=== PATIENT | male | born 1990 | race Caucasian/White ===

== ENCOUNTER 2024-11-08 08:56 | Outpatient (OUT) | payer SELFPAY ==
[2024-11-14 09:07] LABS: HSV-1 DNA Negative (Negative); HSV-2 DNA Negative (Negative)
== END 2024-11-08 08:57 | disposition home or self-care (01) ==
LOC: LAB 08:56
PROVIDERS: PCP Family Medicine; Visit Provider Family Medicine
DX: Z20.828 Contact with and (suspected) exposure to other viral communicable diseases (principal)

== ENCOUNTER 2024-11-16 14:30 | Outpatient (OUT) | payer SELFPAY ==
--- OUTSIDE RECORDS SUMMARY | 2024-11-16 14:51 | XMS_ITS | CCD ---
Author Organization [facility] Inform ion [facility] Care Team Providers Care Loss Claim Clerk Name Role Phone MIRNA RODARTE Unavailable Unavailable TARA HAMILTON Unavailable Unavailable Leticia Negrete Unavailable Tara Hamilton Unavailable Tara De La Rosa Unavailable Juan Manuel Ruffin Unavailable Tara Hamilton Referring UnavailBalaji Valentine Attending Unavailable ALFNOSO, DR PACHECO Primary Care Unavailable TARA DE LA ROSA JR Attending Unavailable TARA DE LA ROSA JR Consulting Unavailable TARA DE LA ROSA JR Admitting Unavailable ALFONSO, DR PACHECO Consulting Unavailable ALFONSO, DR PACHECO Primary Care Unavailable ALFONSO, DR PACHECO Admitting Unavailable ALFONSO, DR PACHECO Attending Unavailable ALFONSO, DR PACHECO Consulting Unavailable ALFONSO, DR PACHECO Primary Care Unavailable GIRRALPH, DR PACHECO Admitting Unavailable ALFONSO, DR PACHECO Attending Unavailable ALFONSO, DR PACHECO Primary Care Unavailable STALNEY, DR PEDRO Crabtree Consulting Unavailable GARRETT CAMPBELL Attending Unavailable GARRETT CAMPBELL Admitting Unavailable GARRETT CAMPBELL Consulting Unavailable Denny CORBIN Attending Unavailable Allergies Allergy Classification Reported Allergen(s) Allergy Type Date of Onset Reaction(s) Facility (9 sources) Penicillian V Potassium Propensity to adverse reactions Epigamies Pronutria Other (1 source) Penicillins Drug allergy (disorder) 4 [facility] Repository Medications Completed/Discontinued Medications Medication Drug Class(es) Dates Sig (Normalized) Sig (Original) dicyclomine hydrochloride 20 mg oral tablet (7 sources) Anticholinergic Start: 11-13-2021 take 1 tablet by mouth every twelve hours Dicyclomine HCl 20 MG 1 tablet Orally TWICE A DAY Oct, Not-Taking metroNIDAZOLE 500 mg oral tablet (3 sources) Nitroimidazole Antimicrobial Start: 08-24-2022 take 1 tablet by mouth every eight hours metroNIDAZOLE 500 MG 1 tablet Orally Three times a day for 10 day(s) replaces Vancomycin Jul, Not-Taking Naltrexone (20 sources) Opioid Antagonist Start: 01-18-2020 Vivitrol 20 Dec, 2019 380 mg Start: 12-18-2019 Vivitrol 20 Ja n2019 380 mg Start: 11-17-2019 Vivitrol 20 De c2018 380 mg Start: 10-16-2019 Vivitrol 18 No v2018 380 mg Start: 03-10-2018 Vivitrol 12 Ap r2017 380 mg Triamcinolone (12 sources) Corticosteroid Start: 05-25-2021 KENALOG - 10 m g Apr, 80 mg Start: 03-22-2021 KENALOG - 10 m g Feb, 40 mg Problems Active Problems Problem Classification Problem Date Documented Date Episodic/Chronic Abdominal pain (6 sources) Unspecified abdominal pain; Translations: [UNSPECIFIED ABDOMINAL PAIN] Onset: 07-29-20 Episodic Epilepsy; convulsions (9 sources) Seizure disorder; Translations: [Epilepsy, unspecified, not intractable, without status epilepticus] Chronic Gastroduodenal ulcer (except hemorrhage) (9 sources) Peptic ulcer; Translations: [Peptic ulcer, site unspecified, unspecified as acute or chronic, without hemorrhage or perforation] Chronic Headache; including migraine (9 sources) Migraine; Translations: [Migraine, unspecified, not intractable, without status migrainosus] Chronic Hepatitis (16 sources) Viral hepatitis C; Translations: [Unspecified viral hepatitis C without hepatic coma] Onset: 11-13-20 Resolved : 11-13-20 Episodic Intestinal infection (1 source) Enterocolitis due to Clostridium difficile, not specified as recurrent Episodic Other gastrointestinal disorders (7 sources) Irritable bowel syndrome with diarrhea; Translations: [Irritable bowel syndrome with diarrhea] Chronic Other gastrointestinal disorders (1 source) Irritable bowel syndrome with diarrhea Onset: 11-13-20 Resolved : 11-13-20 Chronic Other gastrointestinal disorders (5 sources) Diarrhea, unspecified; Translations: [DIARRHEA UNSPECIFIED] Onset: 08-20-20 Episodic Other infections; including parasitic (1 source) Personal history of other infectious and parasitic diseases Episodic Other screening for suspected conditions (not mental disorders or infectious disease) (9 sources) Electroencephalogram abnormal; Translations: [Abnormal electroencephalogram [EEG]] Episodic Substance-related disorders (10 sources) Opioid dependence; Translations: [Opioid dependence, uncomplicated] Onset: 07-31-20 Chronic Past or Other Problems Problem Classification Problem Date Documented Da te Episodic/Chronic Epilepsy; convulsions (1 source) Unspecified convulsions; Translations: [Unspecified convulsions] Onset: 01-29-2018 Episodic Immunizations and screening for infectious disease (1 source) Contact with and (suspected) exposure to other viral communicable diseases; Translations: [Contact with and (suspected) exposure to other viral communicable diseases Z20.828] Onset: 09-19-2021 Resolved: 09-19-2021 Episodic Other upper respiratory infections (1 source) Acute upper respiratory infection, unspecified; Translations: [Viral upper respiratory illness J06.9] Onset: 09-19-2021 Resolved: 09-19-2021 Episodic Urinary tract infections (1 source) Urinary tract infection, site not specified; Translations: [Urinary tract infection, site not specified] Onset: 01-29-2018 Episodic Results Test Name Value Interpretation Reference Range Facility [facility] 06-08-2023 Consent [id number] 8#1.00CD:127 Normal [facility] Registrationon 06-08-2023 Registration [id number] 2#1.00CD:127 Normal [facility] LACTOFERRIN FECAL QUANTon Lactoferrin, Fecal, Quant. <1.00 Normal 0.00-7.24 [facility] Comment on above: Result Comment: Re sults verified by repeat testing . Baseline (normal) 0.00 - 7.24 Elevated >7.24 . An elevated result is indicative of the presence of fecal lactoferrin, a marker of intestinal inflammation. A normal result does not exclude the presence of intestinal inflammation. The test can be used as an in vitro diagnostic aid to distinguish patients with active inflammatory bowel disease (IBD) from those with non-inflammatory irritable bowel syndrome (IBS). Performed By: #### L ACTF #### [facility] [address] [place] [address] Dr. Kelsie Pires OVA AND PARASITE EXAMINATION on 08-29-2022 Ova + Parasite Exam Final report Normal [facility] Comment on above: Result Comment: Thes e results were obtained using wet preparation(s) and trichrome stained smear. This test does not include testing for Cryptosporidium parvum, Cyclospora, or Microsporidia. Performed By: #### O VAPE #### [facility] [address] [place] [address] Dr. Kelsie Pires Result 1 Comment Normal [facility] Comment on above: Result Comment: No o va, cysts, or parasites seen. . One negative specimen does not rule out the possibility of a parasitic infection. Performed By: #### O VAPE #### [facility] [address] [place] [address] Dr. Kelsie Pires STOOL CULTUREon 08-28-2022 Campylobacter Culture Final report Normal [facility] Comment on above: Performed By: #### O BSCRN #### [facility] [address] [place] [address] Dr. Kelsie Pires E coli Shiga Toxin EIA Negative Normal Negative [facility] Comment on above: Performed By: #### O BSCRN #### [facility] [address] [place] [address] Dr. Kelsie Pires Result 1 Comment Normal [facility] Comment on above: Result Comment: No S almonella or Shigella recovered. Performed By: #### O BSCRN #### [facility] [address] [place] [address] Dr. Kelsie Pires Result Comment: No C ampylobacter species isolated. Salmonella/Shigella Screen Final report Normal [facility] Comment on above: Performed By: #### O BSCRN #### [facility] [address] [place] [address] Dr. Kelsie Pires AMYLASEon 08-20-2022 Amylase [Catalytic activity/Vol] 54 U/L Normal 25-115 [facility] Comment on above: Performed By: #### A MY, CMP, LIPA #### [facility] [address] [place] [address] Dr. Kelsie Pires C. DIFF PCRon 08-20-2022 C. DIFFICILE PCR Positive Critically abnormal NEGATIVE [facility] Comment on above: Performed By: #### C DIFPOC #### [facility] [address] [place] [address] Dr. Kelsie Pires CBC AUTO DIFFon 08-20-2022 BASO # 0.0 103/ul Normal 0.0-0.1 [facility] Comment on above: Performed By: #### C BC #### [facility] [address] [address] [address] Kelsie Pires Basophils/100 WBC (Bld) 0.7 % Normal 0.2-2.0 [facility] Comment on above: Performed By: #### C BC #### [facility] [address] [place] [address] Dr. Kelsie Pires EO # 0.1 103/ul Normal 0.0-0.7 [facility] Comment on above: Performed By: #### C BC #### [facility] [address] [place] [address] Dr. Kelsie Pires Eosinophils/100 WBC (Bld) 1.2 % Normal 0.9-7.0 [facility] Comment on above: Performed By: #### C BC #### [facility] [address] [place] [address] Dr. Kelsie Pires Erythrocyte distribution width (RBC) [Ratio] 12.0 % Normal 11.0-15.0 [facility] Comment on above: Performed By: #### C BC #### [facility] [address] [place] [address] Dr. Kelsie Pires Hematocrit (Bld) [Volume fraction] 41.7 % Critically low 42.0-54.0 [facility] Comment on above: Performed By: #### C BC #### [facility] [address] [place] [address] Dr. Kelsie Pires Hemoglobin (Bld) [Mass/Vol] 14.4 g/dL Normal 14.0-18.0 [facility] Comment on above: Performed By: #### C BC #### [facility] [address] [place] [address] Dr. Kelsie Pires IG # 0.01 10e3/ul Normal 0.00-0.03 [facility] Comment on above: Performed By: #### C BC #### [facility] [address] [place] [address] Dr. Kelsie Pires IG % 0.2 % Normal 0.0-0.5 [facility] Comment on above: Performed By: #### C BC #### [facility] [address] [place] [address] Dr. Kelsie Pires LYMPH # 1.7 103/ul Normal 1.2-3.8 [facility] Comment on above: Performed By: #### C BC #### [facility] [address] [place] [address] Dr. Kelsie Pires Lymphocytes/100 WBC (Bld) 29.4 % Normal 20.5-60.0 [facility] Comment on above: Performed By: #### C BC #### [facility] [address] [place] [address] Dr. Kelsie Pires MANUAL DIFF REQ NO Normal [facility] Comment on above: Performed By: #### C BC #### [facility] [address] [place] [address] Dr. Kelsie Pires MCH (RBC) [Entitic mass] 30.8 pg Normal 25.9-34.0 [facility] Comment on above: Performed By: #### C BC #### [facility] [address] [place] [address] Dr. Kelsie Pires MCHC (RBC) [Mass/Vol] 34.5 g/dL Normal 29.9-35.2 [facility] Comment on above: Performed By: #### C BC #### [facility] [address] [place] [address] Dr. Kelsie Pires MCV (RBC) [Entitic vol] 89.3 fL Normal 80.0-94.0 [facility] Comment on above: Performed By: #### C BC #### [facility] [address] [place] [address] Dr. Kelsie Pires MONO # 0.5 103/ul Normal 0.3-0.8 [facility] Comment on above: Performed By: #### C BC #### [facility] [address] [place] [address] Dr. Kelsie Pires Monocytes/100 WBC (Bld) 7.8 % Normal 1.7-12.0 [facility] Comment on above: Performed By: #### C BC #### [facility] [address] [place] [address] Dr. Kelsie Pires NEUT # 3.5 103/ul Normal 1.4-6.5 [facility] Comment on above: Performed By: #### C BC #### [facility] [address] [place] [address] Dr. Kelsie Pires Neutrophils/100 WBC (Bld) 60.7 % Normal 43.0-75.0 [facility] Comment on above: Performed By: #### C BC #### [facility] [address] [place] [address] Dr. Kelsie Pires Platelet mean volume (Bld) [Entitic vol] 10.9 fL Normal 9.5-13.5 [facility] Comment on above: Performed By: #### C BC #### [facility] [address] [place] [address] Dr. Kelsie Pires PLT 222 103/ul Normal 150-450 [facility] Comment on above: Performed By: #### C BC #### [facility] [address] [place] [address] Dr. Kelsie Pires RBC 4.67 106/ul Critically low 4.70-6.10 [facility] Comment on above: Performed By: #### C BC #### [facility] [address] [place] [address] Dr. Kelsie Pires WBC 5.7 103/ul Normal 4.0-11.0 [facility] Comment on above: Performed By: #### C BC #### [facility] [address] [place] [address] Dr. Kelsie Pires LAB TESTINGon 08-20-2022 RECV HEADER SEE SCANNED REPORT IN HPF Normal [facility] Comment on above: Performed By: #### M ISC #### [facility] [address] [place] [address] Dr. Kelsie Pires REV FROM REF LAB 08/25/22 [facility] Comment on above: Performed By: #### M ISC #### [facility] [address] [place] [address] Dr. Kelsie Pires SENT TO REF LAB 08/22/22 Normal [facility] Comment on above: Performed By: #### M ISC #### [facility] [address] [place] [address] Dr. Kelsie Pires LIPASEon 08-20-2022 Lipase [Catalytic activity/Vol] 138.0 U/L Normal 73.0-393.0 [facility] Comment on above: Performed By: #### A MY, CMP, LIPA #### [facility] [address] [place] [address] Dr. Kelsie Pires OCC BLD IMMUNO SCREENon 07-31 OCCULT BLOOD Negative Normal NEGATIVE [facility] Comment on above: Performed By: #### O BSCRN #### [facility] [address] [place] [address] Dr. Kelsie Pires PROF 14(COMP METB)on 022 Albumin [Mass/Vol] 4.7 g/dL Normal 3.4-5.0 [facility] Comment on above: Performed By: #### O BSCRN #### [facility] [address] [place] [address] Dr. Kelsie Pires Albumin/Globulin [Mass ratio] 1.3 {ratio} Normal [facility] Comment on above: Performed By: #### O BSCRN #### [facility] [address] [place] [address] Dr. Kelsie Pires ALP [Catalytic activity/Vol] 56 U/L Normal 46-116 [facility] Comment on above: Performed By: #### O BSCRN #### [facility] [address] [place] [address] Dr. Kelsie Pires ALT [Catalytic activity/Vol] 29 U/L Normal 16-63 [facility] Comment on above: Performed By: #### O BSCRN #### [facility] [address] [place] [address] Dr. Kelsie Pires Anion gap [Moles/Vol] 10.6 mmol/L Normal [facility] Comment on above: Performed By: #### O BSCRN #### [facility] [address] [address] [address] Kelsie Pires AST [Catalytic activity/Vol] 17 U/L Normal 15-37 [facility] Comment on above: Performed By: #### O BSCRN #### [facility] [address] [place] [address] Dr. Kelsie Pires Bilirubin [Mass/Vol] 1.0 mg/dL Normal 0.2-1.0 [facility] Comment on above: Performed By: #### O BSCRN #### [facility] [address] [place] [address] Dr. Kelsie Pires Calcium [Mass/Vol] 9.1 mg/dL Normal 8.5-10.1 [facility] Comment on above: Performed By: #### O BSCRN #### [facility] [address] [place] [address] Dr. Kelsie Pires Chloride [Moles/Vol] 102 mmol/L Normal 98-107 [facility] Comment on above: Performed By: #### O BSCRN #### [facility] [address] [place] [address] Dr. Kelsie Pires CO2 [Moles/Vol] 29.1 mmol/L Normal 21.0-32.0 [facility] Comment on above: Performed By: #### O BSCRN #### [facility] [address] [place] [address] Dr. Kelsie Pires Creatinine [Mass/Vol] 0.97 mg/dL Normal 0.70-1.30 [facility] Comment on above: Performed By: #### O BSCRN #### [facility] [address] [place] [address] Dr. Kelsie Pires EGFR-AF AZERBAIJANI >60 Normal >=60 [facility] Comment on above: Performed By: #### O BSCRN #### [facility] [address] [place] [address] Dr. Kelsie Pires EGFR-NON AF AZERBAIJANI >60 Normal >=60 [facility] Comment on above: Performed By: #### O BSCRN #### [facility] [address] [address] [address] Kelsie Pires Globulin (S) [Mass/Vol] 3.4 g/dL Normal [facility] Comment on above: Performed By: #### O BSCRN #### [facility] [address] [address] [address] Kelsie Pires Glucose [Mass/Vol] 93 mg/dL Normal 74-106 [facility] Comment on above: Performed By: #### O BSCRN #### [facility] [address] [place] [address] Dr. Kelsie Pires Potassium [Moles/Vol] 3.7 mmol/L Normal 3.5-5.1 [facility] Comment on above: Performed By: #### O BSCRN #### [facility] [address] [place] [address] Dr. Kelsie Pires Protein [Mass/Vol] 8.1 g/dL Normal 6.4-8.2 [facility] Comment on above: Performed By: #### O BSCRN #### [facility] [address] [place] [address] Dr. Kelsie Pires Sodium [Moles/Vol] 138 mmol/L Normal 136-145 [facility] Comment on above: Performed By: #### O BSCRN #### [facility] [address] [address] [address] Kelsie Pires Urea nitrogen [Mass/Vol] 16.0 mg/dL Normal 7.0-18.0 [facility] Comment on above: Performed By: #### O BSCRN #### [facility] [address] [place] [address] Dr. Kelsie Pires Urea nitrogen/Creatinine [Mass ratio] 16.5 mg/mg Normal [facility] Comment on above: Performed By: #### O BSCRN #### [facility] [address] [place] [address] Dr. Kelsie Pires Physician Referralon 022 Physician Referral [id number] #[id number]:127 Normal [facility] AMYLASEon 07-29-2022 Amylase [Catalytic activity/Vol] 45 U/L Normal 25-115 [facility] Comment on above: Performed By: #### O BSCRN #### [facility] [address] [place] [address] Dr. Kelsie Pires CBC AUTO DIFFon 07-29-2022 BASO # 0.0 103/ul Normal 0.0-0.1 [facility] Comment on above: Performed By: #### C BC #### [facility] [address] [place] [address] Dr. Kelsie Pires Basophils/100 WBC (Bld) 0.6 % Normal 0.2-2.0 [facility] Comment on above: Performed By: #### C BC #### [facility] [address] [place] [address] Dr. Kelsie Pires EO # 0.0 103/ul Normal 0.0-0.7 [facility] Comment on above: Performed By: #### C BC #### [facility] [address] [place] [address] Dr. Kelsei Pires Eosinophils/100 WBC (Bld) 0.8 % Critically low 0.9-7.0 [facility] Comment on above: Performed By: #### C BC #### [facility] [address] [place] [address] Dr. Kelsie Pires Erythrocyte distribution width (RBC) [Ratio] 12.0 % Normal 11.0-15.0 [facility] Comment on above: Performed By: #### C BC #### [facility] [address] [place] [address] Dr. Kelsie Pires Hematocrit (Bld) [Volume fraction] 42.7 % Normal 42.0-54.0 [facility] Comment on above: Performed By: #### C BC #### [facility] [address] [place] [address] Dr. Kelsie Pires Hemoglobin (Bld) [Mass/Vol] 14.6 g/dL Normal 14.0-18.0 [facility] Comment on above: Performed By: #### C BC #### [facility] [address] [place] [address] Dr. Kelsie Pires IG # 0.01 10e3/ul Normal 0.00-0.03 [facility] Comment on above: Performed By: #### C BC #### [facility] [address] [place] [address] Dr. Kelsie Pires IG % 0.2 % Normal 0.0-0.5 [facility] Comment on above: Performed By: #### C BC #### [facility] [address] [place] [address] Dr. Kelsie Pires LYMPH # 1.0 103/ul Critically low 1.2-3.8 [facility] Comment on above: Performed By: #### C BC #### [facility] [address] [place] [address] Dr. Kelsie Pires Lymphocytes/100 WBC (Bld) 20.7 % Normal 20.5-60.0 [facility] Comment on above: Performed By: #### C BC #### [facility] [address] [place] [address] Dr. eKlsie Pires MANUAL DIFF REQ NO Normal [facility] Comment on above: Performed By: #### C BC #### [facility] [address] [place] [address] Dr. Kelsie Pires MCH (RBC) [Entitic mass] 31.1 pg Normal 25.9-34.0 [facility] Comment on above: Performed By: #### C BC #### [facility] [facility] [address] [place] [address] Dr. Kelsie Pires MCHC (RBC) [Mass/Vol] 34.2 g/dL Normal 29.9-35.2 [facility] Comment on above: Performed By: #### C BC #### [facility] [address] [address] [address] Kelsie Pires MCV (RBC) [Entitic vol] 91.0 fL Normal 80.0-94.0 [facility] Comment on above: Performed By: #### C BC #### [facility] [address] [address] [address] Kelsie Pires MONO # 0.4 103/ul Normal 0.3-0.8 [facility] Comment on above: Performed By: #### C BC #### [facility] [address] [address] [address] Kelsie Pires Monocytes/100 WBC (Bld) 8.1 % Normal 1.7-12.0 [facility] Comment on above: Performed By: #### C BC #### [facility] [address] [address] [address] Kelsie Pires NEUT # 3.4 103/ul Normal 1.4-6.5 [facility] Comment on above: Performed By: #### C BC #### [facility] [address] [place] [address] Dr. Kelsie Pires Neutrophils/100 WBC (Bld) 69.6 % Normal 43.0-75.0 [facility] Comment on above: Performed By: #### C BC #### [facility] [address] [address] [address] Kelsie Pires Platelet mean volume (Bld) [Entitic vol] 11.2 fL Normal 9.5-13.5 [facility] Comment on above: Performed By: #### C BC #### [facility] [address] [place] [address] Dr. Kelsie Pires PLT 172 103/ul Normal 150-450 [facility] Comment on above: Performed By: #### C BC #### [facility] [id number] Kelsie Pires RBC 4.69 106/ul Critically low 4.70-6.10 [facility] Comment on above: Performed By: #### C BC #### [facility] [address] [address] [address] Kelsie Pires WBC 4.8 103/ul Normal 4.0-11.0 [facility] Comment on above: Performed By: #### C BC #### [facility] [address] [address] ABD/PELVIS WO CONon 07-29 CT ABD/PELVIS WO CON EXAMINATION: CT ABD/PELVIS WO CON HISTORY: UNSPECIFIED ABDOMINAL PAIN ; lower abdominal pain, nausea, vomiting COMPARISON: No relevant comparison available. TECHNIQUE: Axial, Coronal, and Sagittal images were created without IV contrast. Dose reduction techniques were achieved by using automated exposure control and/or adjustment of mA and/or kV according to patient size and/or use of iterative reconstruction technique. FINDINGS: LUNG BASES: No visible pulmonary or pleural disease. LIVER: No enlargement, atrophy, suspicious density, or significant focal lesion. BILIARY: No dilatation or calcification. PANCREAS: No lesion, fluid collection, or abnormal duct dilatation. SPLEEN: No enlargement or focal lesion. ADRENALS: No mass or enlargement. KIDNEYS: No mass, obstruction, or calcification. BOWEL/MESENTERY: No visible mass, obstruction, or bowel wall thickening. Normal appendix. AORTA/VASCULAR: No aneurysm or dissection. RETROPERITONEUM: No mass or adenopathy. LYMPH NODES: No adenopathy. URINARY BLADDER: No visible focal wall thickening, lesion, or calculus. PELVIC ORGANS: No visible mass. Pelvic organs appropriate for patient age. ABDOMINAL WALL: No mass or hernia. BONES: No bony lesion or fracture. OTHER: Negative. IMPRESSION: 1. No acute or suspicious findings to account for patient's symptoms. Electronically authenticated by: PEDRO ANGEL Date: 2022-07-29 12:31 Normal [facility] ER URINE PROFILEon 2 Bilirubin Ql (U) Negative Normal NEGATIVE [facility] Comment on above: Performed By: #### E RUR #### [facility] [address] [place] [address] Dr. Kelsie Pires Clarity (U) CLEAR Normal CLEAR [facility] Comment on above: Performed By: #### E RUR #### [facility] [address] [place] [address] Dr. Kelsie Pires Color (U) LT. YELLOW Normal YELLOW [facility] Comment on above: Performed By: #### E RUR #### [facility] [address] [place] [address] Dr. Kelsie HART A micrscopic examination will be performed if indicated. Normal [facility] Comment on above: Performed By: #### E RUR #### [facility] [address] [place] [address] Dr. Kelsie Pires Glucose Ql (U) Negative Normal NEGATIVE [facility] Comment on above: Performed By: #### E RUR #### [facility] [address] [place] [address] Dr. Kelsie Pires Hemoglobin Ql (U) Negative Normal NEGATIVE [facility] Comment on above: Performed By: #### E RUR #### [facility] [address] [place] [address] Dr. Kelsie Pires Ketones Ql (U) Negative Normal NEGATIVE [facility] Comment on above: Performed By: #### E RUR #### [facility] [address] [place] [address] Dr. Kelsie Pires LEUKOCYTES Negative Normal NEGATIVE [facility] Comment on above: Performed By: #### E RUR #### [facility] [address] [place] [address] Dr. Kelsie Pires Nitrite Ql (U) Negative Normal NEGATIVE [facility] Comment on above: Performed By: #### E RUR #### [facility] [address] [place] [address] Dr. Kelsie Pires pH (U) 6.0 [pH] Normal 5-9 [facility] Comment on above: Performed By: #### E RUR #### [facility] [address] [place] [address] Dr. Kelsie Pires SPEC GRAVITY <=1.005 Abnormal 1.005-<=1.025 [facility] Comment on above: Performed By: #### E RUR #### [facility] [address] [place] [address] Dr. Kelsie Pires UA PROTEIN Negative Normal NEGATIVE/ TRACE [facility] Comment on above: Performed By: #### E RUR #### [facility] [address] [place] [address] Dr. Kelsie Pires UR MICRO IND NOT INDICATED Normal [facility] Comment on above: Performed By: #### E RUR #### [facility] [address] [place] [address] Dr. Kelsie Pires Urobilinogen Qn (U) 0.2 {Jaciel'U}/dL Normal 0.2 - 1. 0 [facility] Comment on above: Performed By: #### E RUR #### [facility] [address] [place] [address] Dr. Kelsie Pires LIPASEon 07-29-2022 Lipase [Catalytic activity/Vol] 75.0 U/L Normal 73.0-393.0 [facility] Comment on above: Performed By: #### O BSCRN #### [facility] [address] [place] [address] Dr. Kelsie Pires PROF 14(COMP METB)on 022 Albumin [Mass/Vol] 4.5 g/dL Normal 3.4-5.0 [facility] Comment on above: Performed By: #### O BSCRN #### [facility] [address] [place] [address] Dr. Kelsie Pires Albumin/Globulin [Mass ratio] 1.2 {ratio} Normal [facility] Comment on above: Performed By: #### O BSCRN #### [facility] [address] [place] [address] Dr. Kelsie Pires ALP [Catalytic activity/Vol] 67 U/L Normal 46-116 [facility] Comment on above: Performed By: #### O BSCRN #### [facility] [address] [place] [address] Dr. Kelsie Pires ALT [Catalytic activity/Vol] 25 U/L Normal 16-63 [facility] Comment on above: Performed By: #### O BSCRN #### [facility] [address] [place] [address] Dr. Kelsie Pires Anion gap [Moles/Vol] 11.2 mmol/L Normal [facility] Comment on above: Performed By: #### O BSCRN #### [facility] [address] [place] [address] Dr. Kelsie Pires AST [Catalytic activity/Vol] 18 U/L Normal 15-37 [facility] Comment on above: Performed By: #### O BSCRN #### [facility] [address] [place] [address] Dr. Kelsie Pires Bilirubin [Mass/Vol] 1.0 mg/dL Normal 0.2-1.0 [facility] Comment on above: Performed By: #### O BSCRN #### [facility] [address] [place] [address] Dr. Kelsie Pires Calcium [Mass/Vol] 8.8 mg/dL Normal 8.5-10.1 [facility] Comment on above: Performed By: #### O BSCRN #### [facility] [address] [place] [address] Dr. Kelsie Pires Chloride [Moles/Vol] 103 mmol/L Normal 98-107 [facility] Comment on above: Performed By: #### O BSCRN #### [facility] [address] [place] [address] Dr. Kelsie Pires CO2 [Moles/Vol] 29.8 mmol/L Normal 21.0-32.0 [facility] Comment on above: Performed By: #### O BSCRN #### [facility] [address] [place] [address] Dr. Kelsie Pires Creatinine [Mass/Vol] 0.88 mg/dL Normal 0.70-1.30 [facility] Comment on above: Performed By: #### O BSCRN #### [facility] [address] [place] [address] Dr. Kelsie Pires EGFR-AF AZERBAIJANI >60 Normal >=60 [facility] Comment on above: Performed By: #### O BSCRN #### [facility] [address] [place] [address] Dr. Kelsie Pires EGFR-NON AF AZERBAIJANI >60 Normal >=60 [facility] Comment on above: Performed By: #### O BSCRN #### [facility] [address] [place] [address] Dr. Kelsie Pires Globulin (S) [Mass/Vol] 3.6 g/dL Normal [facility] Comment on above: Performed By: #### O BSCRN #### [facility] [address] [address] [address] Kelsie Pires Glucose [Mass/Vol] 87 mg/dL Normal 74-106 [facility] Comment on above: Performed By: #### O BSCRN #### [facility] [address] [place] [address] Dr. Kelsie Pires Potassium [Moles/Vol] 4.0 mmol/L Normal 3.5-5.1 [facility] Comment on above: Performed By: #### O BSCRN #### [facility] [address] [place] [address] Dr. Kelsie Pires Protein [Mass/Vol] 8.1 g/dL Normal 6.4-8.2 [facility] Comment on above: Performed By: #### O BSCRN #### [facility] [address] [place] [address] Dr. Kelsie Pires Sodium [Moles/Vol] 140 mmol/L Normal 136-145 [facility] Comment on above: Performed By: #### O BSCRN #### [facility] [address] [place] [address] Dr. Kelsie Pires Urea nitrogen [Mass/Vol] 15.0 mg/dL Normal 7.0-18.0 [facility] Comment on above: Performed By: #### O BSCRN #### [facility] [address] [place] [address] Dr. Kelsie Pires Urea nitrogen/Creatinine [Mass ratio] 17.0 mg/mg Normal [facility] Comment on above: Performed By: #### O BSCRN #### [facility] [address] [place] [address] Dr. Kelsie Pires HEPATITIS C VIRUS (HCV) ERIK T PCR (NON-Mikel 07-21-2022 HCV log10 Normal [facility] Comment on above: Performed By: #### O BSCRN #### [facility] [address] [place] [address] Dr. Kelsie Pires Hepatitis C Quantitation Not detected Normal [facility] Comment on above: Performed By: #### O BSCRN #### [facility] [address] [address] [address] Kelsie Pires Test Information: Comment Normal [facility] Comment on above: Result Comment: The quantitative range of this assay is 15 IU/mL to 100 million IU/mL. Performed By: #### O BSCRN #### [facility] [address] [place] [address] Dr. Kelsie Pires liveron 12-16-2021 [facility] [place] [address] [place] [address] Ultrasound Report Signed Patient: Pedro Stearns Jr MR#: [id number] : 1990 Acct:[id number] Age/Sex: 31 / M ADM Date: 12/16/21 Loc: Room: Type: [facility] Attending Dr: Tara De La Rosa DO Ordering Provider: Tara De La Rosa Jr, DO Date of Service: 12/16/21 US/US liver: Hepatitis C Copies to: Tara De La Rosa Jr, DO LIMITED ABDOMINAL ULTRASOUND - liver CLINICAL HISTORY: Hepatitis C COMPARISON: None The gallbladder is physiologically distended without shadowing calculi, wall thickening or pericholecystic fluid. No intra- or extrahepatic biliary dilatation is evident. The common duct measures 2 - 3 mm. The liver is normal in echogenicity. No intrahepatic masses are seen. There is appropriate hepatopetal flow within the main portal vein. The pancreas shows no significant sonographic abnormality. Cursory evaluation of the right kidney reveals no hydronephrosis or fluid within Mack's pouch. US/US liver IMPRESSION: NEGATIVE ULTRASOUND OF THE RIGHT UPPER QUADRANT. Impression dictated by: Gloria Marcial M.D.12/16/2021 12:00 PM Dictation Location: [address] [place] [address] Tech: [facility] Transcribed By: NELDA 12/16/21 1200 Dictated By: Gloria Marcial MD 12/16/21 1158 Signed By: 12/16/21 1200 Normal [facility] Complete Blood Count Auto Di ffon 11-27-2021 Basophils (Bld) [#/Vol] 0.0 10*3/uL Normal 0.0-0.2 [facility] Comment on above: Order Comment: Reaso n for Exam Hepatitis C Result Comment: PERF ORMED BY: [place] [address] PATHOLOGIST MANAGER STYLE MATTHEW MANZANARES M.D. Performed By: #### C MP, CBC, PT #### [address] #### HBCAB, HCV RNAQNT, HBSAG, HCV ELI #### [facility] , Basophils/100 WBC (Bld) 0.8 % Normal . [facility] Comment on above: Order Comment: Reaso n for Exam Hepatitis C Performed By: #### C MP, CBC, PT #### [facility] [address] [place] [address] #### HBCAB, HCV RNAQNT, HBSAG, HCV ELI #### [facility] , Eosinophils (Bld) [#/Vol] 0.1 10*3/uL Normal 0.0-0.45 [facility] Comment on above: Order Comment: Reaso n for Exam Hepatitis C Performed By: #### C MP, CBC, PT #### [facility] [address] [place] [address] #### HBCAB, HCV RNAQNT, HBSAG, HCV ELI #### [facility] , Eosinophils/100 WBC (Bld) 3.6 % Normal . [facility] Comment on above: Order Comment: Reaso n for Exam Hepatitis C Performed By: #### C MP, CBC, PT #### [facility] [address] [place] [address] [place] #### HBCAB, HCV RNAQNT, HBSAG, HCV ELI #### [facility] , Erythrocyte distribution width (RBC) [Ratio] 12.9 % Normal 12.0-14.8 [facility] Comment on above: Order Comment: Reaso n for Exam Hepatitis C Performed By: #### C MP, CBC, PT #### [facility] [address] [place] [address] #### HBCAB, HCV RNAQNT, HBSAG, HCV ELI #### [facility] , Hematocrit (Bld) [Volume fraction] 43.1 % Normal 38.8-50.0 [facility] Comment on above: Order Comment: Reaso n for Exam Hepatitis C Performed By: #### C MP, CBC, PT #### [address] #### HBCAB, HCV RNAQNT, HBSAG, HCV ELI #### [facility] , Hemoglobin (Bld) [Mass/Vol] 14.5 g/dL Normal 13.0-17.0 [facility] Comment on above: Order Comment: Reaso n for Exam Hepatitis C Performed By: #### C MP, CBC, PT #### [facility] [address] [place] [address] #### HBCAB, HCV RNAQNT, HBSAG, HCV ELI #### [facility] , Lymphocytes (Bld) [#/Vol] 1.2 10*3/uL Normal 1.00-4.8 [facility] Comment on above: Order Comment: Reaso n for Exam Hepatitis C Performed By: #### C MP, CBC, PT #### [facility] [address] [place] [address] [place] #### HBCAB, HCV RNAQNT, HBSAG, HCV ELI #### [facility] , Lymphocytes/100 WBC (Bld) 28.7 % Normal . [facility] Comment on above: Order Comment: Reaso n for Exam Hepatitis C Performed By: #### C MP, CBC, PT #### [address] #### HBCAB, HCV RNAQNT, HBSAG, HCV ELI #### [facility] , MCH (RBC) [Entitic mass] 30.5 pg Normal 27.5-35.2 [facility] Comment on above: Order Comment: Reaso n for Exam Hepatitis C Performed By: #### C MP, CBC, PT #### [facility] [address] [place] [address] #### HBCAB, HCV RNAQNT, HBSAG, HCV ELI #### [facility] , MCV (RBC) [Entitic vol] 90.7 fL Normal 83.5-101 [facility] Comment on above: Order Comment: Reaso n for Exam Hepatitis C Performed By: #### C MP, CBC, PT #### [address] #### HBCAB, HCV RNAQNT, HBSAG, HCV ELI #### [facility] , Mean Corpuscular HGB Conc 33.7 g/dL Normal 32.5-35.6 [facility] Comment on above: Order Comment: Reaso n for Exam Hepatitis C Performed By: #### C MP, CBC, PT #### [address] #### HBCAB, HCV RNAQNT, HBSAG, HCV ELI #### [facility] , Monocytes (Bld) [#/Vol] 0.4 10*3/uL Normal 0.0-0.8 [facility] Comment on above: Order Comment: Reaso n for Exam Hepatitis C Performed By: #### C MP, CBC, PT #### [facility] [address] [place] [address] [place] #### HBCAB, HCV RNAQNT, HBSAG, HCV ELI #### [facility] , Monocytes/100 WBC (Bld) 8.7 % Normal . [facility] Comment on above: Order Comment: Reaso n for Exam Hepatitis C Performed By: #### C MP, CBC, PT #### [address] #### HBCAB, HCV RNAQNT, HBSAG, HCV ELI #### [facility] , Neutrophils (Bld) [#/Vol] 2.4 10*3/uL Normal 1.8-7.7 [facility] Comment on above: Order Comment: Reaso n for Exam Hepatitis C Performed By: #### C MP, CBC, PT #### [address] #### HBCAB, HCV RNAQNT, HBSAG, HCV ELI #### [facility] , Neutrophils/100 WBC (Bld) 58.2 % Normal . [facility] Comment on above: Order Comment: Reaso n for Exam Hepatitis C Performed By: #### C MP, CBC, PT #### [address] #### HBCAB, HCV RNAQNT, HBSAG, HCV ELI #### [facility] , Nucleated RBC/100 WBC (Bld) [Ratio] 0.0 % Normal 0-0.5 [facility] Comment on above: Order Comment: Reaso n for Exam Hepatitis C Performed By: #### C MP, CBC, PT #### [address] #### HBCAB, HCV RNAQNT, HBSAG, HCV ELI #### [facility] , Platelet mean volume (Bld) [Entitic vol] 9.0 fL Normal 6.6-10.1 [facility] Comment on above: Order Comment: Reaso n for Exam Hepatitis C Performed By: #### C MP, CBC, PT #### [address] #### HBCAB, HCV RNAQNT, HBSAG, HCV ELI #### [facility] , Platelets (Bld) [#/Vol] 186 10*3/uL Normal 150-450 [facility] Comment on above: Order Comment: Reaso n for Exam Hepatitis C Performed By: #### C MP, CBC, PT #### [facility] [address] [place] [address] [place] #### HBCAB, HCV RNAQNT, HBSAG, HCV ELI #### [facility] , RBC (Bld) [#/Vol] 4.76 10*6/uL Normal 3.90-5.60 [facility] Comment on above: Order Comment: Reaso n for Exam Hepatitis C Performed By: #### C MP, CBC, PT #### [facility] [address] [place] [address] #### HBCAB, HCV RNAQNT, HBSAG, HCV ELI #### [facility] , WBC (Bld) [#/Vol] 4.2 10*3/uL Low 4.5-11.0 [facility] Comment on above: Order Comment: Reaso n for Exam Hepatitis C Performed By: #### C MP, CBC, PT #### [facility] [address] [place] [address] #### HBCAB, HCV RNAQNT, HBSAG, HCV ELI #### [facility] , Comprehensive Metabolic Pane samaria 11-27-2021 Albumin [Mass/Vol] 4.2 g/dL Normal 3.2-5.5 [facility] Comment on above: Order Comment: Reaso n for Exam Hepatitis C Performed By: #### C MP, CBC, PT #### [facility] [address] [place] [address] [place] #### HBCAB, HCV RNAQNT, HBSAG, HCV ELI #### [facility] , Albumin/Globulin [Mass ratio] 1.3 {ratio} Normal [facility] Comment on above: Order Comment: Reaso n for Exam Hepatitis C Performed By: #### C MP, CBC, PT #### [facility] [address] [place] [address] [place] #### HBCAB, HCV RNAQNT, HBSAG, HCV ELI #### [facility] , ALP [Catalytic activity/Vol] 52 U/L Normal 32-92 [facility] Comment on above: Order Comment: Reaso n for Exam Hepatitis C Result Comment: PERF ORMED BY: [place] [address] PATHOLOGIST MANAGER STYLE MATTHEW MANZANARES M.D. Performed By: #### C MP, CBC, PT #### [facility] [address] [place] [address] #### HBCAB, HCV RNAQNT, HBSAG, HCV ELI #### [facility] , ALT [Catalytic activity/Vol] 81 U/L High 10-60 [facility] Comment on above: Order Comment: Reaso n for Exam Hepatitis C Performed By: #### C MP, CBC, PT #### [facility] [address] [place] [address] #### HBCAB, HCV RNAQNT, HBSAG, HCV ELI #### [facility] , AST [Catalytic activity/Vol] 39 U/L Normal 10-42 [facility] Comment on above: Order Comment: Reaso n for Exam Hepatitis C Performed By: #### C MP, CBC, PT #### [facility] [address] [place] [address] #### HBCAB, HCV RNAQNT, HBSAG, HCV ELI #### [facility] , Bilirubin [Mass/Vol] 0.9 mg/dL Normal 0.3-1.2 [facility] Comment on above: Order Comment: Reaso n for Exam Hepatitis C Performed By: #### C MP, CBC, PT #### [facility] [address] [place] [address] [place] #### HBCAB, HCV RNAQNT, HBSAG, HCV ELI #### [facility] , Calcium [Mass/Vol] 9.3 mg/dL Normal 8.2-10.2 [facility] Comment on above: Order Comment: Reaso n for Exam Hepatitis C Performed By: #### C MP, CBC, PT #### [facility] [address] [place] [address] [place] #### HBCAB, HCV RNAQNT, HBSAG, HCV ELI #### [facility] , Chloride [Moles/Vol] 102 mmol/L Normal 95-114 [facility] Comment on above: Order Comment: Reaso n for Exam Hepatitis C Performed By: #### C MP, CBC, PT #### [facility] [address] [place] [address] #### HBCAB, HCV RNAQNT, HBSAG, HCV ELI #### [facility] , CO2 [Moles/Vol] 26.8 mmol/L Normal 22.0-30.0 [facility] Comment on above: Order Comment: Reaso n for Exam Hepatitis C Performed By: #### C MP, CBC, PT #### [facility] [address] [place] [address] [place] #### HBCAB, HCV RNAQNT, HBSAG, HCV ELI #### [facility] , Creatinine [Mass/Vol] 0.82 mg/dL Normal 0.64-1.27 [facility] Comment on above: Order Comment: Reaso n for Exam Hepatitis C Performed By: #### C MP, CBC, PT #### [facility] [address] [place] [address] [place] #### HBCAB, HCV RNAQNT, HBSAG, HCV ELI #### [facility] , Estimated GFR ( [place] > 60 Normal [facility] Comment on above: Order Comment: Reaso n for Exam Hepatitis C Result Comment: GFR estimated reference range: According to KDOQI guidelines, <60 ml/min/1.73m2 is sufficient to diagnose a patient with chronic kidney disease. Performed By: #### C MP, CBC, PT #### [facility] [address] [place] [address] [place] #### HBCAB, HCV RNAQNT, HBSAG, HCV ELI #### [facility] , Estimated GFR (Non- Am > 60 Normal [facility] Comment on above: Order Comment: Reaso n for Exam Hepatitis C Performed By: #### C MP, CBC, PT #### [facility] [address] [place] [address] [place] #### HBCAB, HCV RNAQNT, HBSAG, HCV ELI #### [facility] , Globulin (S) [Mass/Vol] 3.3 g/dL Normal [facility] Comment on above: Order Comment: Reaso n for Exam Hepatitis C Performed By: #### C MP, CBC, PT #### [facility] [address] [place] [address] [place] #### HBCAB, HCV RNAQNT, HBSAG, HCV ELI #### [facility] , Glucose [Mass/Vol] 92 mg/dL Normal 70-100 [facility] Comment on above: Order Comment: Reaso n for Exam Hepatitis C Result Comment: [facility] Glucose Reference Range is dependent on time and content of last meal. Glucose of more than 200 mg/dL in a nonstressed, ambulatory subject supports the diagnosis of Diabetes Mellitus. ADA recommended reference range Performed By: #### C MP, CBC, PT #### [facility] [address] [place] [address] [place] #### HBCAB, HCV RNAQNT, HBSAG, HCV ELI #### [facility] , Potassium [Moles/Vol] 3.8 mmol/L Normal 3.5-5.1 [facility] Comment on above: Order Comment: Reaso n for Exam Hepatitis C Performed By: #### C MP, CBC, PT #### [facility] [address] [place] [address] [place] #### HBCAB, HCV RNAQNT, HBSAG, HCV ELI #### [facility] , Protein [Mass/Vol] 7.5 g/dL Normal 6.1-7.9 [facility] Comment on above: Order Comment: Reaso n for Exam Hepatitis C Performed By: #### C MP, CBC, PT #### [facility] [address] [place] [address] [place] #### HBCAB, HCV RNAQNT, HBSAG, HCV ELI #### [facility] , Sodium [Moles/Vol] 137 mmol/L Normal 136-146 [facility] Comment on above: Order Comment: Reaso n for Exam Hepatitis C Performed By: #### C MP, CBC, PT #### [facility] [address] [place] [address] #### HBCAB, HCV RNAQNT, HBSAG, HCV ELI #### [facility] , Urea nitrogen [Mass/Vol] 11 mg/dL Normal 9-23 [facility] Comment on above: Order Comment: Reaso n for Exam Hepatitis C Performed By: #### C MP, CBC, PT #### [facility] [address] [place] [address] #### HBCAB, HCV RNAQNT, HBSAG, HCV ELI #### [facility] , Hep C Genotyping Non Reflexo n 11-27-2021 Hepatitis C Genotype 1a Normal . [facility] Comment on above: Order Comment: Reaso n for Exam Hepatitis C Performed By: #### C MP, CBC, PT #### [facility] [address] [place] [address] #### HBCAB, HCV RNAQNT, HBSAG, HCV ELI #### [facility] , Please Note: Normal . [facility] Comment on above: Order Comment: Reaso n for Exam Hepatitis C Result Comment: This test was developed and its performance characteristics determined by [facility]. It has not been cleared or approved by the U.S. Food and Drug Administration. The FDA has determined that such clearance or approval is not necessary. This test is used for clinical purposes. It should not be regarded as investigational or for research. Performed at: [address] [id number] Inspector Hot Forgings: Vida Belrtan MD, Phone: [phone] PERFORMED BY: [place] [address] PATHOLOGIST MANAGER STYLE MATTHEW MANZANARES M.D. Performed By: #### C MP, CBC, PT #### [address] #### HBCAB, HCV RNAQNT, HBSAG, HCV ELI #### [facility] , Hep C RT-PCR, Qnt (Non-Graph )on 11-27-2021 HCV Log10 6.760 Normal . [facility] Comment on above: Order Comment: Reaso n for Exam Hepatitis C Result Comment: Resu lt Units: log10 IU/mL Performed By: #### C MP, CBC, PT #### [address] #### HBCAB, HCV RNAQNT, HBSAG, HCV ELI #### [facility] , Hepatitis C Quantitation [id number] Normal . [facility] Comment on above: Order Comment: Reaso n for Exam Hepatitis C Performed By: #### C MP, CBC, PT #### [facility] [address] [place] [address] #### HBCAB, HCV RNAQNT, HBSAG, HCV ELI #### [facility] , Test Information: Normal . [facility] Comment on above: Order Comment: Reaso n for Exam Hepatitis C Result Comment: The quantitative range of this assay is 15 IU/mL to 100 million IU/mL. Performed at: - [address] [id number] Inspector Hot Forgings: Vida Beltran MD, Phone: [phone] Performed By: #### C MP, CBC, PT #### [place] [address] [place] #### HBCAB, HCV RNAQNT, HBSAG, HCV ELI #### [facility] , Hepatitis B Core Antibodyon 11-27-2021 Hepatitis B Core Antibody Negative Normal Negative [facility] Comment on above: Order Comment: Reaso n for Exam Hepatitis C Result Comment: Perf ormed at: - [facility] [address] [id number] Inspector Hot Forgings: Supa Edwards PhD, Phone: [phone] Performed By: #### C MP, CBC, PT #### [facility] [address] [place] [address] #### HBCAB, HCV RNAQNT, HBSAG, HCV ELI #### [facility] , Hepatitis B Surface Antigeno n 11-27-2021 HBsAg Screen Negative Normal Negative [facility] Comment on above: Order Comment: Reaso n for Exam Hepatitis C Performed By: #### C MP, CBC, PT #### [facility] [address] [place] [address] #### HBCAB, HCV RNAQNT, HBSAG, HCV ELI #### [facility] , Prothrombin Time INRon 11-27 INR Coag (PPP) [Relative time] 1.1 {INR} Normal [facility] Comment on above: Order Comment: Reaso n for Exam Hepatitis C Result Comment: INR Therapeutic Range A) Pre- and Peroperative OAT started two weeks before surgery. NOT HIP SURGERY: 1.5 - 2.5 HIP SURGERY: 2 - 3 B) Primary and secondary prevention of venous THROMBOSIS: 2 - 3 C) Active venous thrombosis, pulmonary embolism and prevention of recurrent venous thrombosis: 2 - 3 D) Prevention of arterial thromboembolism including patients with mechanical heart valves: 3 - 4.5 PERFORMED BY: [place] [address] PATHOLOGIST MANAGER STYLE MATTHEW MANZANARES M.D. Performed By: #### C MP, CBC, PT #### [facility] [address] [place] [address] [place] #### HBCAB, HCV RNAQNT, HBSAG, HCV ELI #### [facility] , PT Coag (PPP) [Time] 12.8 s Normal 9.0-12.9 [facility] Comment on above: Order Comment: Reaso n for Exam Hepatitis C Performed By: #### C MP, CBC, PT #### [facility] [address] #### HBCAB, HCV RNAQNT, HBSAG, HCV ELI #### [facility] , Cult,Urine,CCon 01-30-2018 Cult,Urine,CC Specimen Description .CLEAN CATCH URINE Performed at [address] [address] Special Requests NOT REPORTEDCulture NO GROWTH Performed at [facility] [address] [place] [address] Report Status FINAL 01/30/2018 Normal [facility] Comment on above: Performed By: #### C SABAS ####[facility] [place], [place] [phone] [address] CBC with Diffon 01-29-2018 Abs. Basophil 0.10 k/uL Normal 0.0-0.2 [facility] Comment on above: Result Comment: Perf ormed at [address] [address] Performed By: #### C DP, CP, LIP, MG, EDTOX ####[address] [address] Abs.Neutrophil (Seg) 4.00 k/uL Normal 1.3-9.1 [facility] Comment on above: Performed By: #### C DP, CP, LIP, MG, EDTOX ####[address] [address] Basophils/100 WBC Auto (Bld) 1 % Normal 0-2 [facility] Comment on above: Performed By: #### C DP, CP, LIP, MG, EDTOX ####[address] [address] Eosinophils 0.30 10*3/uL Normal 0.0-0.4 [facility] Comment on above: Performed By: #### C DP, CP, LIP, MG, EDTOX ####[facility] [place] [address] Eosinophils/100 leukocytes 4 % Normal 0-4 [facility] Comment on above: Performed By: #### C DP, CP, LIP, MG, EDTOX ####[facility] [place] [address] Erythrocyte distribution width Auto Ratio (RBC) 13.0 % Normal 11.5-14.9 [facility] Comment on above: Performed By: #### C DP, CP, LIP, MG, EDTOX ####[facility] [place] [address] Erythrocytes (RBC) 4.75 10*6/uL Normal 4.5-5.9 [facility] Comment on above: Performed By: #### C DP, CP, LIP, MG, EDTOX ####[facility] [place] [address] Hematocrit (HCT) 43.4 % Normal 41-53 [facility] Comment on above: Performed By: #### C DP, CP, LIP, MG, EDTOX ####[place] [address] [place] [address] Hemoglobin mass conc (Bld) 14.5 g/dL Normal 13.5-17.5 [facility] Comment on above: Performed By: #### C DP, CP, LIP, MG, EDTOX ####[place] [address] [place] [address] Lymphocytes 1.40 10*3/uL Normal 1.0-4.8 [facility] Comment on above: Performed By: #### C DP, CP, LIP, MG, EDTOX ####[facility] [facility] [place] [address] Lymphocytes/100 leukocytes 23 % Low 24-44 [facility] Comment on above: Performed By: #### C DP, CP, LIP, MG, EDTOX ####[facility] [place] [address].[place] [address] MCH 30.6 pg Normal 26-34 [facility] Comment on above: Performed By: #### C DP, CP, LIP, MG, EDTOX ####[address] [place] [address] MCHC mass conc (RBC) 33.5 g/dL Normal 31-37 [facility] Comment on above: Performed By: #### C DP, CP, LIP, MG, EDTOX ####[address] [place] [address] MCV 91.3 fL Normal 80-100 [facility] Comment on above: Performed By: #### C DP, CP, LIP, MG, EDTOX ####[address] [place] [address] Monocytes 0.50 10*3/uL Normal 0.1-1.3 [facility] Comment on above: Performed By: #### C DP, CP, LIP, MG, EDTOX ####[facility] [place] [address].[place] [address] Monocytes/100 leukocytes 8 % High 1-7 [facility] Comment on above: Performed By: #### C DP, CP, LIP, MG, EDTOX ####[address] [place] [address] Neutrophil (Seg) 64 % Normal 36-66 [facility] Comment on above: Performed By: #### C DP, CP, LIP, MG, EDTOX ####[facility] [place] [address] Platelet mean volume (PMV) 9.4 fL Normal 6.0-12.0 [facility] Comment on above: Performed By: #### C DP, CP, LIP, MG, EDTOX ####[place] [address] [place] [address] Platelets 185 10*3/uL Normal 150-450 [facility] Comment on above: Performed By: #### C DP, CP, LIP, MG, EDTOX ####[place] [address] [place] [address] WBC (Leukocytes) 6.3 10*3/uL Normal 3.5-11.0 [facility] Comment on above: Performed By: #### C DP, CP, LIP, MG, EDTOX ####[place] [address] [place] [address] Auto Diff Performed NOT REPORTED Normal [facility] Comment on above: Performed By: #### C DP, CP, LIP, MG, EDTOX ####[address] [place] [address] Erythrocyte morphology NOT REPORTED Normal [facility] Comment on above: Performed By: #### C DP, CP, LIP, MG, EDTOX ####[facility] [place] [address] Erythrocytes (RBC) NOT REPORTED Normal [facility] Comment on above: Performed By: #### C DP, CP, LIP, MG, EDTOX ####[facility] [place] [address] Granulocytes/100 WBC (Bld) NOT REPORTED Normal 0.00-0.30 [facility] Comment on above: Performed By: #### C DP, CP, LIP, MG, EDTOX ####[facility] [place] [address] Immature granulocytes #/vol (Bld) NOT REPORTED Normal 0 [facility] Comment on above: Performed By: #### C DP, CP, LIP, MG, EDTOX ####[address] [address] Platelets NOT REPORTED Normal [facility] Comment on above: Performed By: #### C DP, CP, LIP, MG, EDTOX ####[place] [place] [place] [address] WBC Morphology NOT REPORTED Normal [facility] Comment on above: Performed By: #### C DP, CP, LIP, MG, EDTOX ####[place] [address] [place] [address] Comp Metabolic Profon 2017 (cont.) Normal [facility] Comment on above: Result Comment: Aver age GFR for 20-29 years old: 116 mL/min/1.73sq mChronic Kidney Disease: <60 mL/min/1.73sq mKidney failure: <15 mL/min/1.73sq meGFR calculated using average adult body mass. Additional eGFR calculator available at:http://www.[employer].com/multiple_crcl_2012.htmPerformed at [facility] [address] [place] [address] Performed By: #### C DP, CP, LIP, MG, EDTOX ####[place] [address] [place] [address] Alanine aminotransferase (ALT) 111 U/L High 5-41 [facility] Comment on above: Performed By: #### C DP, CP, LIP, MG, EDTOX ####[facility] [place] [address] Albumin 4.8 g/dL Normal 3.5-5.2 [facility] Comment on above: Performed By: #### C DP, CP, LIP, MG, EDTOX ####[facility] [place] [address] Alkaline Phos 62 U/L Normal 40-129 [facility] Comment on above: Performed By: #### C DP, CP, LIP, MG, EDTOX ####[facility] [place] [address] Anion gap 14 mmol/L Normal 9-17 [facility] Comment on above: Performed By: #### C DP, CP, LIP, MG, EDTOX ####[facility] [place], [place] [address] [place] [address] Aspartate aminotransferase (AST) 55 U/L High <40 [facility] Comment on above: Performed By: #### C DP, CP, LIP, MG, EDTOX ####[facility] [place], [place] [address] [place] [address] Bilirubin Ql (U) 1.02 mg/dL Normal 0.3-1.2 [facility] Comment on above: Performed By: #### C DP, CP, LIP, MG, EDTOX ####[facility] [place] [address] Calcium 9.4 mg/dL Normal 8.6-10.4 [facility] Comment on above: Performed By: #### C DP, CP, LIP, MG, EDTOX ####[facility] [place] [address] Chloride 101 mmol/L Normal 98-107 [facility] Comment on above: Performed By: #### C DP, CP, LIP, MG, EDTOX ####[facility] [place] [address] CO2 24 mmol/L Normal 20-31 [facility] Comment on above: Performed By: #### C DP, CP, LIP, MG, EDTOX ####[facility] [place] [address] Creatinine 0.86 mg/dL Normal 0.70-1.20 [facility] Comment on above: Performed By: #### C DP, CP, LIP, MG, EDTOX ####[address] [place] [address] eGFR (non-black) mL/min/{1.73_m2} Normal >60 [facility] Comment on above: Performed By: #### C DP, CP, LIP, MG, EDTOX ####[facility] [place] [address] Glucose mass conc 103 mg/dL High 70-99 [facility] Comment on above: Performed By: #### C DP, CP, LIP, MG, EDTOX ####[facility] [place] [address] Potassium molar conc 4.3 mmol/L Normal 3.7-5.3 [facility] Comment on above: Performed By: #### C DP, CP, LIP, MG, EDTOX ####[facility] [place] [address] Protein 8.1 g/dL Normal 6.4-8.3 [facility] Comment on above: Performed By: #### C DP, CP, LIP, MG, EDTOX ####[facility] [place] [address] Sodium 139 mmol/L Normal 135-144 [facility] Comment on above: Performed By: #### C DP, CP, LIP, MG, EDTOX ####[address] [address] Urea nitrogen 12 mg/dL Normal 6-20 [facility] Comment on above: Performed By: #### C DP, CP, LIP, MG, EDTOX ####[address] [address] Albumin/Globulin Ratio NOT REPORTED Normal 1.0-2.5 [facility] Comment on above: Performed By: #### C DP, CP, LIP, MG, EDTOX ####[address] [address] BUN/CRE Ratio NOT REPORTED Normal 9-20 [facility] Comment on above: Performed By: #### C DP, CP, LIP, MG, EDTOX ####[address] [address] Staging: NOT REPORTED Normal [facility] Comment on above: Performed By: #### C DP, CP, LIP, MG, EDTOX ####[address] [address] Drug Scr, Abuse, Uron 2017 Amphetamine(s),Ur Negative Normal NEG [facility] Comment on above: Result Comment: (Pos itive cutoff 1000 ng/mL) Performed By: #### U AX, UMICAO, LATISHA, UTAD ####[address] [address] Barbiturate(s),Ur Negative Normal NEG [facility] Comment on above: Result Comment: (Pos itive cutoff 200 ng/mL) Performed By: #### U AX, UMICAO, LATISHA, UTAD ####[address] [place] [address] Base excess Negative Normal NEG [facility] Comment on above: Result Comment: (Pos itive cutoff 300 ng/mL) Performed By: #### U AX, UMICAO, LATISHA, UTAD ####[address] [address] Benzodiazepine(s) Negative Normal NEG [facility] Comment on above: Result Comment: (Pos itive cutoff 200 ng/mL) Performed By: #### U AX, UMICAO, LATISHA, UTAD ####[address] [address] Cannabinoid(s),Ur Positive Abnormal NEG [facility] Comment on above: Result Comment: (Pos itive cutoff 50 ng/mL) Performed By: #### U AX, UMICAO, LATISHA, UTAD ####[address] [address] Interpretive Info Assay provides medical screening only. The absence of expected drug(s) and/or Normal [facility] Comment on above: Result Comment: meta bolite(s) may indicate diluted or adulterated urine, limitations of testing or timing of collection.Testing for legal purposes should be confirmed by another method. To request confirmation of test result, please call the lab within 7 days of sample submission.Performed at [address] [address] Performed By: #### U AX, UMICAO, LATISHA, UTAD ####[address] [address] Opiate(s), Ur Negative Normal NEG [facility] Comment on above: Result Comment: (Pos itive cutoff 300 ng/mL) Performed By: #### U AX, UMICAO, LATISHA, UTAD ####[address] [address] Oxycodone, Urine Negative Normal NEG [facility] Comment on above: Result Comment: (Pos itive cutoff 100 ng/mL) Performed By: #### U AX, UMICAO, LATISHA, UTAD ####[address] [address] Phencyclidine, Ur Negative Normal NEG [facility] Comment on above: Result Comment: (Pos itive cutoff 25 ng/mL) Performed By: #### U AX, UMICAO, LATISHA, UTAD ####[address] [address] Urine, methadone presence Negative Normal NEG [facility] Comment on above: Result Comment: (Pos itive cutoff 300 ng/mL) Performed By: #### U AX, UMICAO, LATISHA, UTAD ####[address] [address] Buprenorphrine, Ur NOT REPORTED Normal NEG [facility] Comment on above: Performed By: #### U AX, UMICAO, LATISHA, UTAD ####[address] [address] MDMA, Urine NOT REPORTED Normal NEG [facility] Comment on above: Performed By: #### U AX, UMICAO, LATISHA, UTAD ####[address] [address] Methamphetamine, Ur NOT REPORTED Normal NEG [facility] Comment on above: Performed By: #### U AX, UMICAO, LATISHA, UTAD ####[address] [address] Propoxyphene,Urine NOT REPORTED Normal NEG [facility] Comment on above: Performed By: #### U AX, UMICAO, LATISHA, UTAD ####[address] [place] [address] Urine, tricyclic antidepressants NOT REPORTED Normal NEG [facility] Comment on above: Performed By: #### U SHAYLA, LATISHA SALCEDO, YAOD ####[facility] [place] [address] Lipaseon 01-29-2018 Lipase 21 U/L Normal 13-60 [facility] Comment on above: Result Comment: Perf ormed at [facility] [address] [place] [address] Performed By: #### C DP, CP, LIP, MG, EDTOX ####[address] [address] Magnesiumon 01-29-2018 Magnesium 2.5 mg/dL Normal 1.6-2.6 [facility] Comment on above: Result Comment: Perf ormed at [place] [address] [place] [address] Performed By: #### C DP, CP, LIP, MG, EDTOX ####[address] [address] Tox Scr, Bld, EDon 8 Acetaminophen mass conc <10 Low 10-30 [facility] Comment on above: Result Comment: Perf ormed at [place] [address] [place] [address] Performed By: #### C DP, CP, LIP, MG, EDTOX ####[address] [address] Salicylate <1 Low 3-10 [facility] Comment on above: Performed By: #### C DP, CP, LIP, MG, EDTOX ####[address] [address] Ethanol mg/dL Normal <10 [facility] Comment on above: Performed By: #### C DP, CP, LIP, MG, EDTOX ####[address] [address] Ethanol percent <0.010 Normal [facility] Comment on above: Performed By: #### C DP, CP, LIP, MG, EDTOX ####[address] [address] UA w/Reflex Cultureon 2017 Acetaminophen mass conc Negative Normal NEG [facility] Comment on above: Performed By: #### U AX, UMICAO, LATISHA, UTAD ####[address] [address] Bilirubin (direct) Negative Normal NEG [facility] Comment on above: Performed By: #### U AX, UMICAO, LATISHA, UTAD ####[address] [address] Hemoglobin mass conc (Bld) TRACE Abnormal NEG [facility] Comment on above: Performed By: #### U AX, UMICAO, LATISHA, UTAD ####[address] [address] Nitrite,Ur Negative Normal NEG [facility] Comment on above: Performed By: #### U AX, UMICAO, LATISHA, UTAD ####[address] [address] Turbidity CLEAR Normal CLEAR [facility] Comment on above: Performed By: #### U AX, UMICAO, LATISHA, UTAD ####[address] [address] Urine, color YELLOW Normal YEL [facility] Comment on above: Performed By: #### U AX, UMICAO, LATISHA, UTAD ####[facility] [facility] [address] Urine, glucose presence Negative Normal NEG [facility] Comment on above: Performed By: #### U AX, UMICAO, LATISHA, UTAD ####[facility] [place] [address].[place] [address] Urine, leukocyte esterase presence TRACE Abnormal NEG [facility] Comment on above: Result Comment: Perf ormed at [facility] [address] [place] [address] Performed By: #### U AX, UMICAO, LATISHA, UTAD ####[address] [place] [address] Urine, pH 5.5 [pH] Normal 5.0-8.0 [facility] Comment on above: Performed By: #### U AX, UMICAO, LATISHA, UTAD ####[facility] [place] [address] Urine, protein presence Negative Normal NEG [facility] Comment on above: Performed By: #### U AX, UMICAO, LATISHA, UTAD ####[facility] [place] [address] Urine, specific gravity 1.010 Normal 1.000-1.030 [facility] Comment on above: Performed By: #### U AX, UMICAO, LATISHA, UTAD ####[facility] [place] [address].[place] [address] Urobilinogen,Ur Normal Normal NORM [facility] Comment on above: Performed By: #### U AX, UMICAO, LATISHA, UTAD ####[facility] [place] [address] Comment NOT REPORTED Normal [facility] Comment on above: Performed By: #### U AX, UMICAO, LATISHA, UTAD ####[address] [address] Ur.Tricyclic Antidepon 01-29 Ur.Tricyclic Antidep Negative Normal NEG [facility] Comment on above: Result Comment: (Pos itive cutoff 1000 ng/mL)Assay provides rapid clinical screening only. Presumptive positive results for legal purposes should be confirmed by another method. To request confirmation, please call the lab within 7 days of sample submission.Performed at [address] [address] Performed By: #### U AX, UMICAO, LATISHA, UTAD ####[address] [address] Urinalysis,Microon 8 ----- Normal [facility] Comment on above: Performed By: #### U AX, UMICAO, LATISHA, UTAD ####[address] [address] Urine WBC's 10 TO 20 Normal [facility] Comment on above: Performed By: #### U AX, UMICAO, LATISHA, UTAD ####[address] [address] Urine, bacteria in sediment FEW Abnormal NONE [facility] Comment on above: Result Comment: Perf ormed at [address] [address] Performed By: #### U AX, UMICAO, LATISHA, UTAD ####[address] [address] Urine, epithelial cells in sediment 0 TO 2 Normal [facility] Comment on above: Performed By: #### U AX, UMICAO, LATISHA, UTAD ####[facility] [facility] [place] [address] Urine, erythrocytes 2 TO 5 Normal [facility] Comment on above: Performed By: #### U AX, UMICAO, LATISHA, UTAD ####[address] [place] [address] Epithelial, Renal NOT REPORTED Normal 0 [facility] Comment on above: Performed By: #### U AX, UMICAO, LATISHA, UTAD ####[address] [address] Mucus Strands NOT REPORTED Normal NONE [facility] Comment on above: Performed By: #### U AX, UMICAO, LATISHA, UTAD ####[address] [address] Other Observations NOT REPORTED Normal NREQ [facility] Comment on above: Performed By: #### U AX, UMICAO, LATISHA, UTAD ####[address] [address] Trichomonas NOT REPORTED Normal NONE [facility] Comment on above: Performed By: #### U AX, UMICAO, LATISHA, UTAD ####[address] [address] Urine, amorphous sediment presence in sediment NOT REPORTED Normal NONE [facility] Comment on above: Performed By: #### U AX, UMICAO, LATISHA, UTAD ####[address] [address] Urine, casts in sediment NOT REPORTED Normal [facility] Comment on above: Performed By: #### U AX, UMICAO, LATISHA, UTAD ####[address] [place] [address] Urine, crystals in sediment NOT REPORTED Normal NONE [facility] Comment on above: Performed By: #### Namita MCGUIRE, LATISHA SALCEDO, DAPHNIE ####[facility] [facility] [place] [address] Urine, yeast presence in sediment NOT REPORTED Normal NONE [facility] Comment on above: Performed By: #### U SHAYLA, LATISHA SALCEDO, YAOD ####[facility] [facility] [place] [address] Vital Signs Date Time Vital Sign Value Performing Clinician Facility 11-03-2022 11:30-0500 Body height 170.18 cm Juan Manuel Ruffin Other [facility] Other 11-03-2022 11:30-0500 Body mass index (BMI) [Ratio] 24.27 kg/m2 Juan Manuel Ruffin Other [facility] Other 11-03-2022 11:30-0500 Body weight 70.31 kg Juan Manuel Ruffin Other [facility] Other 11-03-2022 11:30-0500 Diastolic blood pressure 80 mm[Hg] JuanM anuel Ruffin Other [facility] Other 11-03-2022 11:30-0500 Systolic blood pressure 120 mm[Hg] Juan Manuel Ruffin Other [facility] Other 11-13-2021 11:00-0500 Body height 170.18 cm Tara De La Rosa Other [facility] Other 11-13-2021 11:00-0500 Body mass index (BMI) [Ratio] 24.9 kg/m2 Tara De La Rosa Other [facility] Other 11-13-2021 11:00-0500 Body weight 72.12 kg Tara Farhat Other [facility] Other 09-19-2021 15:45-0400 Body height 170.18 cm Leticia Negrete Other [facility] Other 09-19-2021 15:45-0400 Body mass index (BMI) [Ratio] 25.84 kg/m2 Leticia Negrete Other [facility] Other 09-19-2021 15:45-0400 Body weight 74.84 kg Leticia Negrete Other [facility] Other Encounters Encounter Date Encounter Type Care Provider Facility Start: 06-08-2023 End: 06-09-2023 ambulatory [facility] Facility:[facility] Start: 11-03-2022 End: 11-03-2022 ambulatory Juan Manuel Ruffin Other [facility] Other Start: 11-03-2022 Patient encounter procedure Juan Manuel Ruffin [facility] G[facility] Start: 08-27-2022 End: 08-27-2022 ambulatory Tara Hamilton Other [facility] Other Start: 08-27-2022 [facility] Start: 08-24-2022 End: 08-24-2022 ambulatory Tara Hamilton Other [facility] Other Start: 08-24-2022 Telephone encounter Tara Hamilton [facility] [place] Start: 08-21-2022 End: 08-21-[address] TARA HAMILTON Facility:[facility] Start: 08-20-2022 End: 09-23-[address] TARA HAMILTON Facility:[facility] Start: 08-19-2022 End: 08-19-2022 ambulatory Tara Hamilton [facility] Other Start: 08-19-2022 Telephone encounter Tara Hamilton [facility] Start: 07-29-2022 End: 07-29-[address] TARA HAMILTON Facility:[facility] Start: 07-20-2022 End: 07-21-[address] TARA HAMILTON Facility:[facility] Start: 07-07-2022 End: 07-07-2022 ambulatory Juan Manuel Ruffin Other [facility] Other Start: 07-07-2022 Telephone encounter Juan Manuel Ruffin [facility] Start: 11-13-2021 End: 11-13-2021 ambulatory Tara De La Rosa Other [facility] Other Start: 11-13-2021 Office outpatient visit 25 minutes Tara De La Rosa [facility] Start: 11-13-2021 Telephone encounter Tara De La Rosa [facility] G[facility] Start: 09-19-2021 Office outpatient visit 15 minutes Leticia Negrete [facility] [place] Start: 09-19-2021 Telephone encounter Tara Hamilton [facility] [place] Start: 01-29-2018 End: 01-29-2018 Emergency department patient visit MIRNA RODARTE [facility] Procedures Date Procedure Procedure Detail Performing Clinician Start: 08-24-[address] NAVARRO Comment on above: Performed By: #### O BSCRN #### [facility] [address] [place] [address] Dr. Kelsie Pires Start: 01-29-2018 DRUG SCREEN TRICYCLIC URINE MIRNA RODARTE Start: 01-29-2018 Microscopic urinalysis MIRNA RODARTE Start: 01-29-2018 UA W/REFLEX CULTURE JAM PAULINO RODARTE Start: 01-29-2018 URINE CULTURE CLEAN CATCH MIRNA RODARTE Start: 01-29-2018 URINE DRUG SCREEN MIRNA RODARTE Start: 01-29-2018 CBC WITH AUTO DIFFERENTIAL MIRNA RODARTE Start: 01-29-2018 COMPREHENSIVE METABOLIC PANEL MIRNA RODARTE Start: 01-29-2018 LIPASE MIRNA WATSON Start: 01-29-2018 MAGNESIUM MIRNA WATSON Start: 01-29-2018 TOX SCR, BLD, ED MIRNA RODARTE Immunizations Immunization Date Immunization Notes Care Provider Fa cility 05-25-2021 KENALOG - 10 mg Leticia Dymon d Other [facility] Other 03-22-2021 KENALOG - 10 mg Leticia Dymon d Other [facility] Other 01-18-2020 Vivitrol Leticia Penelope Other [facility] Other 12-18-2019 Vivitrol Leticai Penelope Other [facility] Other 11-17-2019 Vivitrol Leticia Penelope Other [facility] Other 10-16-2019 Vivitrol Leticia Penelope Other [facility] Other 03-10-2018 Vivitrol Leticia Penelope Other [facility] Other Payers Date Payer Category Payer Unknown [id number] .16.8 [id number] 1991 Unknown [id number] .16.84 [id number] 1991 Unknown [id number] .16.84 [id number] 1991 Unknown [id number] [id number] 1991 Unknown [id number] [id number] 1959 Unknown [id number] Social History Date Type Detail Facility Unknown if ever smoked [facility] Other Sex Assigned At Sex Assigned At Bir th [facility] Other Clinical Notes 09-19-2021 to 11-03-2022 Note Date & Type Note Facility 11-03-2022 History general N arrative - Reported Type Medical History 1x seizure -2013 Medical History HEPATITIS C Medical History Marijuana Use Medical History Opioid Dependence Medical History IBS-D Surgical History pin in right hand 2012 Surgical History EEG ambulatory - Dr Esqueda 06/17 17 Hospitalization History seizure 2013 Hospitalization History seizure 2017 [facility] Other 12-06-2022 Evaluation note* Encounter Date Diagnosis Assessment Notes Treatment Notes Treatment Clinical Notes Oct, Hepatitis C (ICD-10 - B19.20) Pt reassured of Hep C clearance. Oct, History of Clostridioides difficile infection (ICD-10 - Z86.19) Reassured pt that it may take a while for bowel habits to return back to normal. Recommended probiotic when taking antibiotics Follow up PRN [facility] Other 09-26-2022 Evaluation note* Encounter Date Diagnosis Assessment Notes Treatment Notes Treatment Clinical Notes Jul, C. difficile diarrhea (ICD-10 - A04.72) I did advise him that his stool study came back positive for C-diff. Explained to him that this is a bacterial infection of the colon that causes severe diarrhea. This needs to be treated with an antibiotic. I do want him to follow with the rivet maker when he can get in there. Guidance is given on how to take the medication. He is to take the entire course of medication. I did explain to him that this is very contagious. He voices that he was on an antibiotic for an abscessed tooth about a month ago which is likely where he got this from. He needs to isolate himself as much as possible, Lysol and bleach the bathrooms and clean the door handles as often as he can to prevent spreading this. Once he has been on the antibiotic for a few days he should not be as contagious. He does have his great grandma who is 96 years old living with him. He will use caution. I expect him to begin feeling better in the next few days. If anyone he lives with becomes symptomatic they should be seen at the ER for evaluation. I asked him to keep me posted with progress. Let me know how he is doing by the end of his antibiotic treatment. Jul, Other 5:59 PM - 6:06 PM [facility] Other 09-21-2022 Evaluation note* Encounter Date Diagnosis Assessment Notes Treatment Notes Treatment Clinical Notes Jul, Diarrhea (ICD-10 - R19.7) He voices that he has had diarrhea for the last month. He is having diarrhea five or more times per day. He went to the ER four weeks ago and they did do testing and told him that they did not see anything abnormal but recommended a colonoscopy. The Dicyclomine does not really help. He tried Imodium which helped keep him from going for a few hours but the following day he was back to the diarrhea. I did agree that he should have a colonoscopy. He is unable to see Dr. Ruffin until Oct (2021) and this is too far away. I can refer him to a general surgeon who can potentially see him/do the scope sooner. He would like a referral to see a general surgeon to help get this done sooner. I will have him get an abdominal x-ray done and will order stool studies to be done to rule out any abnormalities. Jul, Abdominal pain (ICD-10 - R10.9) He voices that he does have abdominal pain when he having the diarrhea. I will provide him with an order to have an abdominal x-ray and lab to be done. He admits that his diet is poor. He eats alot of fried foods and pizza, chicken wings. Jul, Other 3:11 PM - 3:23 PM [facility] Other 12-16-2021 Evaluation note* Encounter Date Diagnosis Assessment Notes Treatment Notes Treatment Clinical Notes Oct, Hepatitis C (ICD-10 - B19.20) START PPW FOR [facility] FOR 8 WEEKS THIS PATIENT IS A GOOD CANDIDATE FOR THERAPY HE / SHE IS MOTIVATED AND AGREES TO PROCEED WITH THERAPY THE PATIENT READINESS CONSENT WAS DISCUSSED AND SIGNED BY PATIENT AND PHYSICIAN HE / SHE DOES NOT HAVE ANY LIMITED LIFE EXPECTACNCY DUE TO NON LIVER COMORBITIES AND AGREES TO RNA TESTING Q 4 WEEKS WHILE ON THERAPY Oct, Irritable bowel syndrome with diarrhea (ICD-10 - K58.0) [facility] Other 12-16-2021 Evaluation note* Encounter Date Diagnosis Assessment Notes Treatment Notes Treatment Clinical Notes Oct, Hepatitis C (ICD-10 - B19.20) [facility] Other 10-22-2021 Evaluation note* Encounter Date Diagnosis Assessment Notes Treatment Notes Treatment Clinical Notes Aug, Contact with and (suspected) exposure to other viral communicable diseases (ICD-10 - Z20.828) Aug, Viral upper respiratory illness (ICD-10 - J06.9) Aug, Other Additional time spent conducting pre-visit phone call, screening for symptoms, instructions on social distancing, application and removal of PPE, and cleaning of examination room, equipment and supplies was preformed. Patient education given for testing methodology and results. Patient care instructions given in writting by [facility] document. [facility] Other Evaluation noteNo [facility] Other History general Narrative - Reported* Type Description Date Medical History 1x seizure -2013 Medical History HEPATITIS C Medical History Marijuana Use Medical History Opioid Dependence Surgical History pin in right hand 2012 Surgical History EEG ambulatory - Dr Esqueda 06/17 17 Hospitalization History seizure 2013 [facility] Other History general Narrative - Reported* Type Description Date Medical History 1x seizure -2013 Medical History HEPATITIS C Medical History Marijuana Use Medical History Opioid Dependence Medical History IBS-D Surgical History pin in right hand 2012 Surgical History EEG ambulatory - Dr Esqudea 06/17 17 Hospitalization History seizure 2013 [facility] Other His[facility] general Narrative - Reported* Type Description Date Medical History 1x seizure -2013 Medical History HEPATITIS C Medical History Marijuana Use Medical History Opioid Dependence Medical History IBS-D Surgical History pin in right hand 2012 Surgical History EEG ambulatory - Dr Esqueda 06/17 17 Hospitalization History seizure 2013 Hospitalization History seizure 2017 [facility] Other Summary Purpose Family History No Family History Records FoundNo Family History Records FoundNo Family History Records FoundNo Family History Records FoundNo Family History Records Found Advance Directives No Advanced Directives Records FoundNo Advanced Directives Records FoundNo Advanced Directives Records FoundNo Advanced Directives Records FoundNo Advanced Directives Records Found Reason for Referral Reason appt pt needs cons ult to discuss colonoscopy due to persistent diarrhea/ Dr. Cruz Diagnosis 1 Diarrhea (R19.7) Referral Organization [facility] [place] Referring Provider First Name Tara Referring Provider Last Name Bartoloralph Referring Provider Specialty Family Prac bhavani Referred Organization [facility] Referred Provider Balaji Cruz [place] [address] [place], [place],[address] Referred Provider Specialty Surgery Referral Priority Routine General Notes Kathie Choudhury 08/19/2022 03:26:54 PM > referral faxed with visit note and insurance card. pt understands that he will be contacted to schedule this appt. Additional Source Comments (unrecognized sect ion and content) No Status Records FoundNo Status Records FoundNo Status Records FoundNo Status Records FoundNo Status Records Found INFORMATION SOURCE (unrecogn ized section and content) DATE CREATED AUTHOR 05/20/2018 [facility] DATE CREATED AUTHOR AUTHOR'S ORGANIZ ATION 01/11/2022 [facility] DATE CREATED AUTHOR AUTHOR'S ORGANIZ ATION 08/30/2022 [facility] DATE CREATED AUTHOR AUTHOR'S ORGANIZ ATION 09/04/2022 [facility] DATE CREATED AUTHOR AUTHOR'S ORGANIZ ATION 09/29/2023 [facility] REASON FOR VISIT (unrecogniz ed section and content) #24 RED IMPALA, FEVER, CONGE STION, COUGH, COVID EXPOSURENo InformationPATIENT HERE FOR FOLLOW UP HEPATITIS CHEP C-[facility]- APPROVEDClinicaldiarrheareview labsreferral fyiPATIENT HERE FOR FOLLOW UP HEP C TREATMENT. PT WAS TREATED WITH [facility] FOR RECORDS PERTAINING TO PATIENTS WHO ARE OR HAVE BEEN ENROLLED IN A CHEMICAL DEPENDENCY/SUBSTANCEABUSE PROGRAM, SOME INFORMATION MAY BE OMITTED. This clinical summary was aggregated from multiple sources. Caution should be exercised in using it in the provision of clinical care. This summary normalizes information from multiple sources, and as a consequence, information in this document may materially change the coding, format and clinical context of patient data. In addition, data may be omitted in some cases. CLINICAL DECISIONS SHOULD BE BASED ON THE PRIMARY CLINICAL RECORDS. [facility] [employer] [facility]. provides no warranty or guarantee of the accuracy or completeness of information in this document.
[2024-11-17 11:12] LABS: Rapid Plasma Reagin, Quant Non Reactive titer (NonRea<1:1)
== END 2024-11-16 14:31 | disposition home or self-care (01) ==
LOC: LAB 14:30
PROVIDERS: PCP Family Medicine; Visit Provider Family Medicine
DX: Z20.828 Contact with and (suspected) exposure to other viral communicable diseases (principal)
CPT/HCPCS: 36415; 86592

== ENCOUNTER 2025-02-08 07:49 | Emergency (ER) | payer SELFPAY ==
[2025-02-08 07:55] VITALS: BP 147/96; PULSE 94; TEMP 36.6; O2SAT 99; BMI 27.4
--- OUTSIDE RECORDS SUMMARY | 2025-02-08 07:58 | XMS_ITS | CCD ---
Author Organization [facility] Inform ion Partnership [facility] Care Team Providers Care Leather Crafter Name Role Phone MIRNA RODARTE Unavailable Unavailable TARA HAMILTON Unavailable Unavailable Penelope Leticia Unavailable Tara Hamilton Unavailable Tara De La Rosa Unavailable Juan Manuel Ruffin Unavailable Tara Hamilton Referring UnavailBalaji Valentine Attending Unavailable ALFONSO, DR PACHECO Primary Care Unavailable TARA DE LA ROSA JR Attending Unavailable TARA DE LA ROSA JR Consulting Unavailable TARA DE LA ROSA JR Admitting Unavailable ALFONSO, DR PACHECO Consulting Unavailable ALFONSO, DR PACHECO Primary Care Unavailable ALFONSO, DR PACHECO Admitting Unavailable ALFONSO, DR PACHECO Attending Unavailable ALFONSO, DR PACHECO Consulting Unavailable ALFONSO, DR PACHECO Primary Care Unavailable ALFONSO, DR PACHECO Admitting Unavailable GIRMITCHEL, DR PACHECO Attending Unavailable GIRMITCHEL, DR PACHECO Primary Care Unavailable STANLEY, DR PEDRO Crabtree Consulting Unavailable GARRETT CAMPBELL Attending Unavailable GARRETT CAMPBELL Admitting Unavailable GARRETT CAMPBELL Consulting Unavailable MILAGRO ESCALANTE Attending Unavail able Tara Hamilton Primary Care Physician Allergies Allergy Classification Reported Allergen(s) Allergy Type Date of Onset Reaction(s) Facility (9 sources) Penicillian V Potassium Propensity to adverse reactions [place] Other (1 source) Penicillins Drug allergy (disorder) 4 [facility] Repository (2 sources) Amoxicillin; Translations: [amoxicillin] Drug Allergy Eruption of skin (disorder) [facility] Medications Completed/Discontinued Medications Medication Drug Class(es) Dates [...] not intractable, without status migrainosus] Chronic Hepatitis (18 sources) Viral hepatitis C; Translations: [Unspecified viral [...] other infectious and parasitic diseases Episodic Other male genital disorders (3 sources) Disorder of penis; Translations: [Other specified disorders of penis] Onset: 01-15-20 Chronic Other male genital disorders (2 sources) Impotence 01-15-2025 Chronic Other screening for suspected conditions (not mental [...] Test Name Value Interpretation Reference Range Facility Ambulatory Visit Summaryon 0 01-15-2025 Ambulatory Visit Summary Ambulatory Visit Summary PEDRO STEARNS JR :1990 Visit Date:01/15/2025 Ambulatory Visit Instructions Your Diagnosis Penile cyst Your Care Team Attending Physician - AVA DILL, [facility] Primary Care Physician - Tara Hamilton DO Discharge Vitals Heart Rate (Peripheral) 87 Respiratory Rate 19 Blood Pressure 134/92 Height 170 cm Height 67 in Weight 77.4 kg Weight 170.638 lb BMI 26.78 What to do next You Need to Schedule the Following Appointments Follow Up with MILAGRO ESCALANTE MD, URL When: Where: Allergies amoxicillin (Eruption) Problems Ongoing - Any problem that you are currently receiving treatment for. Erectile dysfunction (ED) Hepatitis C Penile cyst Patient Survey You may receive a survey via text or e-mail asking about your office visit. Please share your experience with us by completing your survey. We appreciate your feedback and thank you for choosing us for your care. Education Materials Testicular Self-Exam A self-examination of your testicles (testicular self-exam) involves looking at and feeling your testicles for abnormal lumps or swelling. Several things can cause swelling, lumps, or pain in your testicles, including: ??? Injuries. ??? Inflammation. ??? Infection. ??? Buildup of fluids around the testicle (hydrocele). ??? Twisted testicles (testicular torsion). ??? Testicular cancer. You may be at risk for this if you have: ? A testicle that has not descended. ? Previously had testicular cancer. ? A family history of testicular cancer. General tips ??? It is easiest to do a self-exam during or after a warm bath or shower. Testicles are harder to examine when you are cold because the muscles attached to the testicles retract and pull them up higher or into the abdomen. ??? A normal testicle is egg-shaped and feels firm. It is smooth and not tender. ??? It is normal to feel a firm, spaghetti-like cord at the back of your testicle. This is the spermatic cord. ??? Do a self-exam once a month. How to do a testicular self-exam 1. Stand and hold your penis away from your body. 2. Look at each testicle to check for changes in appearance, such as swelling or changes in size or shape. 3. Roll each testicle between your thumb and forefinger, feeling the entire testicle. Feel for: ??? Lumps. ??? Swelling. ??? Discomfort. 4. Check for swelling or tender bumps in the groin area. Your groin is where your lower belly (abdomen) meets your upper thighs. Contact a health care provider if: ??? You find a bump or lump. This may be a small, hard bump that is the size of a pea. ??? You have swelling, pain, or soreness in your testicle area. ??? You see or feel any other changes in your testicles. This information is not intended to replace advice given to you by your health care provider. Make sure you discuss any questions you have with your health care provider. Document Revised: 08/30/2023 Document Reviewed: 08/30/2023 [employer] Patient Education ??? 2023 [employer]. Normal [facility] Urology Office/Clinic Noteon 01-15-2025 Urology Office/Clinic Note Urology Office/Clinic Note HPI Staff 34 year old male referred by Dr. Hamilton for genital warts. Pt states he first noticed bumps on his penis 1-2 years ago that went away. Pt states they came back a few months ago. Notices them after intercourse with the same partner. Pt states they come and go. They are red at first and eventually pop. Pt states they are painful when they are healing. Shares he has been tested for herpes and syphilis and they were both negative. IPSS 4 Pt. states no pain or blood in urine. History of Present Illness Tests reviewed: reviewed UA, external records and new patient paperwork. I have reviewed the previous health record information and history for this patient from external provider I have reviewed and verified the staff HPI to be accurate for this encounter. There have been no associated fever, chills, flank pain, or blood in the urine. Denies any urinary infections since last encounter. Review of Systems ROS - Provider Constitutional: denies weight loss, denies hot flashes. Eyes: denies eye problems. Gastrointestinal: denies nausea, denies vomiting. Cardiovascular: denies chest pain or angina. Integumentary: no dryness Musculoskeletal: denies musculoskeletal symptoms. ENMT: denies otolaryngeal symptoms. Respiratory: no shortness of breath. Heme/Lymph: denies easy bleeding tendency, denies easy bruising tendency. Psychiatric: no confusion, no anxiety. Genitourinary: See HPI. Physical Exam General Appearance: alert, no distress, well nourished, well developed male. Head: normocephalic . Eyes: normal orbit and globe. ENMT: normal examination of external ears. Genitourinary: normal scrotum, normal testes, normal urethra, normal epididymis, normal vas deferens/spermatic cord. Flank Pain: none. Penis: normal shaft, normal glans, circumcised, no lesions noted. Lymph Nodes: unremarkable palpation of the cervical area. Psychiatric: cooperative, affect appropriate for age, normal judgement, euthymic mood. Assessment/Plan 34 [address] Hamilton for disorder of penis. Overall healthy. IPSS 4 NANCY 19 Portions of this record may have been created with voice recognition artificial intelligence software, specifically [employer] and or [employer]. Substitutions may have occurred due to the inherent limitations of voice recognition and artificial intelligence software. 1. Penile cyst (N48.89: Other specified disorders of penis) Reports he first noticed bumps on his penis/shaft 1-2 years ago that went away, shares at that time he was not sexually active. Pt states they came back a few months ago. Notices them after intercourse with the same partner, female partner. Pt states she denies hx of STIs or genital warts. Pt states they come and go. They are red at first and eventually pop. Pt states they are painful when they are healing. Mentions bumps were raised and white. Shares he has been tested for herpes and syphilis and they were both negative. Denies enlarged lymph nodes. Physical exam ~circumcised, no lymphadenopathy, no lesions noted. Difficult to determine without actually seeing lesion. Likely benign based on history given. Recommended pt to f/up as needed. Pt agrees with plan. -Use lubrication during sexual intercourse -Advised pt to take a picture if he has another flare, pt can schedule a f/up at that point Follow up as needed or sooner if needed. Patient states that over the last few years he has had a raised lesion on the shaft of his penis that sounds cystic in nature and popped with clear, serosanguineous fluid draining out of it. He had testing for syphilis, herpes that was negative. He denies any cauliflower shaped to the lesion. I discussed with the patient that it is likely not genital warts. Unfortunately, patient did not have any picture of the lesion and physical exam today was unremarkable. He will follow-up as needed. Follow-up With When Contact Information AVA DILL, MILAGRO, EMILYL Additional Instructions: As needed Patient Education Testicular Self-Exam I, Candice Figueroa, personally scribed for Dr. Alicea on 01/15/2025 11:06:30. . Documentation recorded by the scribe, Candice Figueroa, accurately reflects the services(s) I performed and decisions made by me. Authenticated by Dr. Escalante on 01/15/2025 11:08:31. Problem List/Past Medical History Ongoing Erectile dysfunction (ED) Penile cyst Historical No qualifying data Medications No active medications Allergies amoxicillin (Eruption) Social History Alcohol Wine, Liquor. 1-2 times per week., 01/15/2025 Substance Abuse Past. Amphetamines, Cocaine, Ecstasy, Hallucinogens/LSD, Heroin, Marijuana, Methamphetamines, Prescription medications. Daily. Previous treatment: vivitrol., 01/15/2025 Tobacco Never (less than 100 in lifetime) Tobacco Use:., 01/15 (more content not included)... [facility] Comment on above: Result Comment: Elec tronically Signed By: MILAGRO ESCALANTE MD\.br\Date and Time Signed: 01/15/25 11:10 EST\.br\Electronically Co-Signed By: Candice Figueroa\.br\Date and Time Co-Signed: 01/15/25 11:06 EST LACTOFERRIN FECAL QUANTon Lactoferrin, Fecal, Quant. <1.00 Normal 0.00-7.24 [facility] Comment on above: Result Comment: Re sults [...] bowel syndrome (IBS). Performed By: #### L ACTFQ #### [facility] [address] [place] [address] Dr. Kelsie Pires OVA AND PARASITE EXAMINATION on 08-29-2022 Ova + Parasite Exam Final report Normal [facility] Comment on above: Result Comment: Thes e results were obtained using wet preparation(s) and trichrome stained smear. This test does not include testing for Cryptosporidium parvum, Cyclospora, or Microsporidia. Performed By: #### O VAPE #### [facility] [address] [address] [address] Kelsie Pires Result 1 Comment Normal [facility] Comment on above: Result Comment: No o va, cysts, or parasites seen. . One negative specimen does not rule out the possibility of a parasitic infection. Performed By: #### O VAPE #### [facility] [address] [address] [address] Kelsie Pires STOOL CULTUREon 08-28-2022 Campylobacter Culture Final report Normal [facility] Comment on above: Performed By: #### O BSCRN #### [facility] [address] [address] [address] Kelsie Pires E coli Shiga Toxin EIA Negative Normal Negative [facility] Comment on above: Performed By: #### O BSCRN #### [facility] [address] [address] [address] Kelsie Pires Result 1 Comment Normal [facility] Comment on above: Result Comment: No S almonella or Shigella recovered. Performed By: #### O BSCRN #### [facility] [address] [address] [address] Kelsie Pires Result Comment: No C ampylobacter species isolated. Salmonella/Shigella Screen Final report Normal [facility] Comment on above: Performed By: #### O BSCRN #### [facility] [address] [address] [address] Kelsie Pires AMYLASEon 08-20-2022 Amylase [Catalytic activity/Vol] 54 U/L Normal 25-115 [facility] Comment on above: Performed By: #### A MY, CMP, LIPA #### [facility] [address] [address] [address] Kelsie Pires C. DIFF PCRon 08-20-2022 C. DIFFICILE PCR Positive Critically abnormal NEGATIVE [facility] Comment on above: Performed By: #### C DIFPOC #### [facility] [address] [place] [address] Dr. Kelsie Pires CBC AUTO DIFFon 08-20-2022 BASO # 0.0 103/ul Normal 0.0-0.1 [facility] Comment on above: Performed By: #### C BC #### [facility] [address] [place] [address] Dr. Kelsie Pires Basophils/100 WBC (Bld) 0.7 % Normal 0.2-2.0 [facility] Comment on above: Performed By: #### C BC #### [facility] [address] [place] [address] Dr. Kelsie Pires EO # 0.1 103/ul Normal 0.0-0.7 [facility] Comment on above: Performed By: #### C BC #### [facility] [address] [place] [address] Dr. Kelsie Pires Eosinophils/100 WBC (Bld) 1.2 % Normal 0.9-7.0 [facility] Comment on above: Performed By: #### C BC #### [facility] [address] [place] [address] Dr. Kelsie Pires Erythrocyte distribution width (RBC) [Ratio] 12.0 % Normal 11.0-15.0 [facility] Comment on above: Performed By: #### C BC #### [facility] [address] [place] [address] Dr. Kelsie Pires Hematocrit (Bld) [Volume fraction] 41.7 % Critically low 42.0-54.0 [facility] Comment on above: Performed By: #### C BC #### [facility] [address] [place] [address] Dr. Kelsie Pires Hemoglobin (Bld) [Mass/Vol] 14.4 g/dL Normal 14.0-18.0 [facility] Comment on above: Performed By: #### C BC #### [facility] [address] [place] [address] Dr. Kelsie Pires IG # 0.01 10e3/ul Normal 0.00-0.03 [facility] Comment on above: Performed By: #### C BC #### [facility] [address] [place] [address] Dr. Kelsie Pires IG % 0.2 % Normal 0.0-0.5 [facility] Comment on above: Performed By: #### C BC #### [facility] [address] [place] [address] Dr. Kelsie Pires LYMPH # 1.7 103/ul Normal 1.2-3.8 [facility] Comment on above: Performed By: #### C BC #### [facility] [address] [place] [address] Dr. Kelsie Pires Lymphocytes/100 WBC (Bld) 29.4 % Normal 20.5-60.0 [facility] Comment on above: Performed By: #### C BC #### [facility] [address] [place] [address] Dr. Kelsie Pires MANUAL DIFF REQ NO Normal [facility] Comment on above: Performed By: #### C BC #### [facility] [address] [place] [address] Dr. Kelsie Pires MCH (RBC) [Entitic mass] 30.8 pg Normal 25.9-34.0 [facility] Comment on above: Performed By: #### C BC #### [facility] [address] [place] [address] Dr. Kelsie Pires MCHC (RBC) [Mass/Vol] 34.5 g/dL Normal 29.9-35.2 [facility] Comment on above: Performed By: #### C BC #### [facility] [address] [place] [address] Dr. Kelsie Pires MCV (RBC) [Entitic vol] 89.3 fL Normal 80.0-94.0 [facility] Comment on above: Performed By: #### C BC #### [facility] [address] [place] [address] Dr. Kelsie Pires MONO # 0.5 103/ul Normal 0.3-0.8 [facility] Comment on above: Performed By: #### C BC #### [facility] [address] [address] [address] Kelsie Pires Monocytes/100 WBC (Bld) 7.8 % Normal 1.7-12.0 [facility] Comment on above: Performed By: #### C BC #### [facility] [address] [address] [address] Kelsie Pires NEUT # 3.5 103/ul Normal 1.4-6.5 [facility] Comment on above: Performed By: #### C BC #### [facility] [address] [address] [address] Kelsie Pires Neutrophils/100 WBC (Bld) 60.7 % Normal 43.0-75.0 [facility] Comment on above: Performed By: #### C BC #### [facility] [address] [place] [address] Dr. Kelsie Pires Platelet mean volume (Bld) [Entitic vol] 10.9 fL Normal 9.5-13.5 [facility] Comment on above: Performed By: #### C BC #### [facility] [address] [address] [address] Kelsie Pires PLT 222 103/ul Normal 150-450 [facility] Comment on above: Performed By: #### C BC #### [facility] [address] [place] [address] Dr. Kelsie Pires RBC 4.67 106/ul Critically low 4.70-6.10 [facility] Comment on above: Performed By: #### C BC #### [facility] [address] [address] [address] Kelsie Pires WBC 5.7 103/ul Normal 4.0-11.0 [facility] Comment on above: Performed By: #### C BC #### [facility] [address] [place] [address] Dr. Kelsie Pires LAB TESTINGon 08-20-2022 RECV HEADER SEE SCANNED REPORT IN HPF Normal [facility] Comment on above: Performed By: #### M ISC #### [facility] [address] [place] [address] Dr. Kelsie Pires REV FROM REF LAB 08/25/22 Normal [facility] Comment on above: Performed By: #### M ISC #### [facility] [address] [place] [address] Dr. Kelsie Pires SENT TO REF LAB 08/22/22 [facility] Comment on above: Performed By: #### M ISC #### [facility] [address] [place] [address] Dr. Kelsie Pires LIPASEon 08-20-2022 Lipase [Catalytic activity/Vol] 138.0 U/L Normal 73.0-393.0 [facility] Comment on above: Performed By: #### A MY, CMP, LIPA #### [facility] [address] [place] [address] Dr. Kelsie Pires OCC BLD IMMUNO SCREENon 07-31 OCCULT BLOOD Negative Normal NEGATIVE [facility] Comment on above: Performed By: #### O BSCRN #### [facility] [address] [place] [address] Dr. Kelsie Pires PROF 14(COMP METB)on 022 Albumin [Mass/Vol] 4.7 g/dL Normal 3.4-5.0 [facility] Comment on above: Performed By: #### O BSCRN #### [facility] [address] [place] [address] Dr. Kelsie Pires Albumin/Globulin [Mass ratio] 1.3 {ratio} Normal [facility] Comment on above: Performed By: #### O BSCRN #### [facility] [address] [place] [address] Dr. Kelsie Pires ALP [Catalytic activity/Vol] 56 U/L Normal 46-116 [facility] Comment on above: Performed By: #### O BSCRN #### [facility] [address] [place] [address] Dr. Kelsie Pires ALT [Catalytic activity/Vol] 29 U/L Normal 16-63 [facility] Comment on above: Performed By: #### O BSCRN #### [facility] [address] [address] [address] Kelsie Pires Anion gap [Moles/Vol] 10.6 mmol/L Normal [facility] Comment on above: Performed By: #### O BSCRN #### [facility] [address] [address] [address] Kelsie Pires AST [Catalytic activity/Vol] 17 U/L Normal 15-37 [facility] Comment on above: Performed By: #### O BSCRN #### [facility] [address] [address] [address] Kelsie Pires Bilirubin [Mass/Vol] 1.0 mg/dL Normal 0.2-1.0 [facility] Comment on above: Performed By: #### O BSCRN #### [facility] [address] [place] [address] Dr. Kelsie Pires Calcium [Mass/Vol] 9.1 mg/dL Normal 8.5-10.1 [facility] Comment on above: Performed By: #### O BSCRN #### [facility] [address] [place] [address] Dr. Kelsie Pires Chloride [Moles/Vol] 102 mmol/L Normal 98-107 [facility] Comment on above: Performed By: #### O BSCRN #### [facility] [address] [place] [address] Dr. Kelsie Pires CO2 [Moles/Vol] 29.1 mmol/L Normal 21.0-32.0 [facility] Comment on above: Performed By: #### O BSCRN #### [facility] [address] [place] [address] Dr. Kelsie Pires Creatinine [Mass/Vol] 0.97 mg/dL Normal 0.70-1.30 [facility] Comment on above: Performed By: #### O BSCRN #### [facility] [address] [place] [address] Dr. Kelsie Pires EGFR-AF EQUATORIAL GUINEAN >60 Normal >=60 [facility] Comment on above: Performed By: #### O BSCRN #### [facility] [address] [address] [address] Kelsie Pires EGFR-NON AF EQUATORIAL GUINEAN >60 Normal >=60 [facility] Comment on above: Performed By: #### O BSCRN #### [facility] [address] [address] [address] Kelsie Pires Globulin (S) [Mass/Vol] 3.4 g/dL Normal [facility] Comment on above: Performed By: #### O BSCRN #### [facility] [address] [address] [address] Kelsie Pires Glucose [Mass/Vol] 93 mg/dL Normal 74-106 [facility] Comment on above: Performed By: #### O BSCRN #### [facility] [address] [address] [address] Kelsie Pires Potassium [Moles/Vol] 3.7 mmol/L Normal 3.5-5.1 [facility] Comment on above: Performed By: #### O BSCRN #### [facility] [address] [address] [address] Kelsie Pires Protein [Mass/Vol] 8.1 g/dL Normal 6.4-8.2 [facility] Comment on above: Performed By: #### O BSCRN #### [facility] [address] [address] [address] Kelsie Pires Sodium [Moles/Vol] 138 mmol/L Normal 136-145 [facility] Comment on above: Performed By: #### O BSCRN #### [facility] [address] [address] [address] Kelsie Pires Urea nitrogen [Mass/Vol] 16.0 mg/dL Normal 7.0-18.0 [facility] Comment on above: Performed By: #### O BSCRN #### [facility] [address] [address] [address] Kelsie Pires Urea nitrogen/Creatinine [Mass ratio] 16.5 mg/mg Normal [facility] Comment on above: Performed By: #### O BSCRN #### [facility] [address] [place] [address] Dr. Kelsie Pires Physician Referralon 022 Physician Referral [id number] Normal [facility] AMYLASEon 07-29-2022 Amylase [Catalytic activity/Vol] 45 U/L Normal 25-115 [facility] Comment on above: Performed By: #### O BSCRN #### [facility] [address] [place] [address] Dr. Kelsie Pires CBC AUTO DIFFon 07-29-2022 BASO # 0.0 103/ul Normal 0.0-0.1 [facility] Comment on above: Performed By: #### C BC #### [facility] [address] [place] [address] Dr. Kelsie Pires Basophils/100 WBC (Bld) 0.6 % Normal 0.2-2.0 [facility] Comment on above: Performed By: #### C BC #### [facility] [address] [place] [address] Dr. Kelsie Pires EO # 0.0 103/ul Normal 0.0-0.7 [facility] Comment on above: Performed By: #### C BC #### [facility] [address] [place] [address] Dr. Kelsie Pires Eosinophils/100 WBC (Bld) 0.8 % Critically low 0.9-7.0 [facility] Comment on above: Performed By: #### C BC #### [facility] [address] [place] [address] Dr. Kelsie Pires Erythrocyte distribution width (RBC) [Ratio] 12.0 % Normal 11.0-15.0 [facility] Comment on above: Performed By: #### C BC #### [facility] [address] [place] [address] Dr. Kelsie Pires Hematocrit (Bld) [Volume fraction] 42.7 % Normal 42.0-54.0 [facility] Comment on above: Performed By: #### C BC #### [facility] [address] [place] [address] Dr. Kelsie Pires Hemoglobin (Bld) [Mass/Vol] 14.6 g/dL Normal 14.0-18.0 [facility] Comment on above: Performed By: #### C BC #### [facility] [address] [place] [address] Dr. Kelsie Pires IG # 0.01 10e3/ul Normal 0.00-0.03 [facility] Comment on above: Performed By: #### C BC #### [facility] [address] [place] [address] Dr. Kelsie Pires IG % 0.2 % Normal 0.0-0.5 [facility] Comment on above: Performed By: #### C BC #### [facility] [address] [place] [address] Dr. Kelsie Pires LYMPH # 1.0 103/ul Critically low 1.2-3.8 [facility] Comment on above: Performed By: #### C BC #### [facility] [address] [place] [address] Dr. Kelsie Pires Lymphocytes/100 WBC (Bld) 20.7 % Normal 20.5-60.0 [facility] Comment on above: Performed By: #### C BC #### [facility] [address] [place] [address] Dr. Kelsie Pires MANUAL DIFF REQ NO Normal [facility] Comment on above: Performed By: #### C BC #### [facility] [address] [place] [address] Dr. Kelsie Pires MCH (RBC) [Entitic mass] 31.1 pg Normal 25.9-34.0 [facility] Comment on above: Performed By: #### C BC #### [facility] [address] [place] [address] Dr. Kelsie Pires MCHC (RBC) [Mass/Vol] 34.2 g/dL Normal 29.9-35.2 [facility] Comment on above: Performed By: #### C BC #### [facility] [address] [place] [address] Dr. Kelsie Pires MCV (RBC) [Entitic vol] 91.0 fL Normal 80.0-94.0 [facility] Comment on above: Performed By: #### C BC #### [facility] [address] [place] [address] Dr. Kelsie Pires MONO # 0.4 103/ul Normal 0.3-0.8 [facility] Comment on above: Performed By: #### C BC #### [facility] [address] [address] [address] Kelsie Pires Monocytes/100 WBC (Bld) 8.1 % Normal 1.7-12.0 [facility] Comment on above: Performed By: #### C BC #### [facility] [address] [place] [address] Dr. Kelsie Pires NEUT # 3.4 103/ul Normal 1.4-6.5 [facility] Comment on above: Performed By: #### C BC #### [facility] [address] [place] [address] Dr. Kelsie Pires Neutrophils/100 WBC (Bld) 69.6 % Normal 43.0-75.0 [facility] Comment on above: Performed By: #### C BC #### [facility] [address] [place] [address] Dr. Kelsie Pires Platelet mean volume (Bld) [Entitic vol] 11.2 fL Normal 9.5-13.5 [facility] Comment on above: Performed By: #### C BC #### [facility] [address] [place] [address] Dr. Kelsie Pires PLT 172 103/ul Normal 150-450 [facility] Comment on above: Performed By: #### C BC #### [facility] [address] [place] [address] Dr. Kelsie Pires RBC 4.69 106/ul Critically low 4.70-6.10 [facility] Comment on above: Performed By: #### C BC #### [facility] [address] [place] [address] Dr. Kelsie Pires WBC 4.8 103/ul Normal 4.0-11.0 [facility] Comment on above: Performed By: #### C BC #### [facility] [address] [address] ABD/PELVIS WO CONon [...] PEDRO ANGEL Date: 2022-07-29 12:31 Normal [facility] URINE PROFILEon 2 Bilirubin Ql (U) Negative Normal NEGATIVE [facility] Comment on above: Performed By: #### E RUR #### [facility] [address] [address] [address] Kelsie Pires Clarity (U) CLEAR Normal CLEAR [facility] Comment on above: Performed By: #### E RUR #### [facility] [address] [address] [address] Kelsie Pires Color (U) LT. YELLOW Normal YELLOW [facility] Comment on above: Performed By: #### E RUR #### [facility] [address] [address] [address] Kelsie HART A micrscopic examination will be performed if indicated. Normal [facility] Comment on above: Performed By: #### E RUR #### [facility] [address] [address] [address] Kelsie Pires Glucose Ql (U) Negative Normal NEGATIVE [facility] Comment on above: Performed By: #### E RUR #### [facility] [address] [place] [address] Dr. Kelsie Pires Hemoglobin Ql (U) Negative Normal NEGATIVE [facility] Comment on above: Performed By: #### E RUR #### [facility] [address] [place] [address] Dr. Kelsie Pires Ketones Ql (U) Negative Normal NEGATIVE [facility] Comment on above: Performed By: #### E RUR #### [facility] [address] [place] [address] Dr. Kelsie Pires LEUKOCYTES Negative Normal NEGATIVE [facility] Comment on above: Performed By: #### E RUR #### [facility] [address] [address] [address] Kelsie Pires Nitrite Ql (U) Negative Normal NEGATIVE [facility] Comment on above: Performed By: #### E RUR #### [facility] [address] [place] [address] Dr. Kelsie Pires pH (U) 6.0 [pH] Normal 5-9 [facility] Comment on above: Performed By: #### E RUR #### [facility] [address] [place] [address] Dr. Kelsie Pires SPEC GRAVITY <=1.005 Abnormal 1.005-<=1.025 [facility] Comment on above: Performed By: #### E RUR #### [facility] [address] [place] [address] Dr. Kelsie Pires UA PROTEIN Negative Normal NEGATIVE/ TRACE [facility] Comment on above: Performed By: #### E RUR #### [facility] [address] [place] [address] Dr. Kelsie Pires UR MICRO IND NOT INDICATED Normal [facility] Comment on above: Performed By: #### E RUR #### [facility] [address] [place] [address] Dr. Kelsie Pires Urobilinogen Qn (U) 0.2 {Jaciel'U}/dL Normal 0.2 - 1. 0 [facility] Comment on above: Performed By: #### E RUR #### [facility] [address] [place] [address] Dr. Kelsie Pires LIPASEon 07-29-2022 Lipase [Catalytic activity/Vol] 75.0 U/L Normal 73.0-393.0 [facility] Comment on above: Performed By: #### O BSCRN #### [facility] [address] [place] [address] Dr. Kelsie Pires PROF 14(COMP METB)on 022 Albumin [Mass/Vol] 4.5 g/dL Normal 3.4-5.0 [facility] Comment on above: Performed By: #### O BSCRN #### [facility] [address] [place] [address] Dr. Kelsie Pires Albumin/Globulin [Mass ratio] 1.2 {ratio} Normal [facility] Comment on above: Performed By: #### O BSCRN #### [facility] [address] [place] [address] Dr. Kelsie Pires ALP [Catalytic activity/Vol] 67 U/L Normal 46-116 [facility] Comment on above: Performed By: #### O BSCRN #### [facility] [address] [place] [address] Dr. Kelsie Pires ALT [Catalytic activity/Vol] 25 U/L Normal 16-63 [facility] Comment on above: Performed By: #### O BSCRN #### [facility] [address] [place] [address] Dr. Kelsie Pires Anion gap [Moles/Vol] 11.2 mmol/L Normal [facility] Comment on above: Performed By: #### O BSCRN #### [facility] [address] [address] [address] Kelsie Pires AST [Catalytic activity/Vol] 18 U/L Normal 15-37 [facility] Comment on above: Performed By: #### O BSCRN #### [facility] [address] [address] [address] Kelsie Pires Bilirubin [Mass/Vol] 1.0 mg/dL Normal 0.2-1.0 [facility] Comment on above: Performed By: #### O BSCRN #### [facility] [address] [address] [address] Kelsie Pires Calcium [Mass/Vol] 8.8 mg/dL Normal 8.5-10.1 [facility] Comment on above: Performed By: #### O BSCRN #### [facility] [address] [place] [address] Dr. Kelsie Pires Chloride [Moles/Vol] 103 mmol/L Normal 98-107 [facility] Comment on above: Performed By: #### O BSCRN #### [facility] [address] [address] [address] Kelsie Pires CO2 [Moles/Vol] 29.8 mmol/L Normal 21.0-32.0 [facility] Comment on above: Performed By: #### O BSCRN #### [facility] [address] [place] [address] Dr. Kelsie Pires Creatinine [Mass/Vol] 0.88 mg/dL Normal 0.70-1.30 [facility] Comment on above: Performed By: #### O BSCRN #### [facility] [address] [address] [address] Kelsie Pires EGFR-AF EQUATORIAL GUINEAN >60 Normal >=60 [facility] Comment on above: Performed By: #### O BSCRN #### [facility] [address] [address] [address] Kelsie Pires EGFR-NON AF EQUATORIAL GUINEAN >60 Normal >=60 [facility] Comment on above: Performed By: #### O BSCRN #### [facility] [address] [address] [address] Kelsie Pires Globulin (S) [Mass/Vol] 3.6 g/dL Normal [facility] Comment on above: Performed By: #### O BSCRN #### [facility] [address] [address] [address] Kelsie Pires Glucose [Mass/Vol] 87 mg/dL Normal 74-106 [facility] Comment on above: Performed By: #### O BSCRN #### [facility] [address] [place] [address] Dr. Kelsie Pires Potassium [Moles/Vol] 4.0 mmol/L Normal 3.5-5.1 [facility] Comment on above: Performed By: #### O BSCRN #### [facility] [address] [place] [address] Dr. Kelsie Pires Protein [Mass/Vol] 8.1 g/dL Normal 6.4-8.2 [facility] Comment on above: Performed By: #### O BSCRN #### [facility] [address] [place] [address] Dr. Kelsie Pires Sodium [Moles/Vol] 140 mmol/L Normal 136-145 [facility] Comment on above: Performed By: #### O BSCRN #### [facility] [address] [place] [address] Dr. Kelsie Pires Urea nitrogen [Mass/Vol] 15.0 mg/dL Normal 7.0-18.0 [facility] Comment on above: Performed By: #### O BSCRN #### [facility] [address] [place] [address] Dr. Kelsie Pires Urea nitrogen/Creatinine [Mass ratio] 17.0 mg/mg Normal [facility] Comment on above: Performed By: #### O BSCRN #### [facility] [address] [place] [address] Dr. Kelsie Pires HEPATITIS C VIRUS (HCV) ERIK T PCR (NON-Mikel 07-21-2022 HCV log10 Normal [facility] Comment on above: Performed By: #### O BSCRN #### [facility] [address] [address] [address] Kelsie Pires Hepatitis C Quantitation Not detected Normal [facility] Comment on above: Performed By: #### O BSCRN #### [facility] [address] [place], [place] [address] Dr. Kelsie Pires Test Information: Comment Normal [facility] Comment on above: Result Comment: The quantitative range of this assay is 15 IU/mL to 100 million IU/mL. Performed By: #### O BSCRN #### [facility] [address] [address] [address] Kelsie Pires liver 12-16-2021 [facility] [place] [address] [place] [address] Ultrasound Report Signed Patient: Pedro Stearns Jr MR#: [id number] : 1990 Acct:[id number] Age/Sex: 31 / M ADM Date: 12/16/21 Loc: Room: Type: [facility] Attending Dr: Tara De La Rosa DO [...] Gloria Marcial M.D.12/16/2021 12:00 PM Dictation Location: [address] [address] Tech: [facility] Transcribed By: NELDA 12/16/21 1200 Dictated By: Gloria Marcial MD 12/16/21 1158 Signed By: 12/16/21 1200 Normal [facility] Complete Blood Count Auto Di ffon 11-27-2021 Basophils (Bld) [#/Vol] 0.0 10*3/uL Normal 0.0-0.2 [facility] Comment on above: Order Comment: Reaso n for Exam Hepatitis C Result Comment: PERF ORMED BY: [place] [address] PATHOLOGIST RESCUE BOAT OPERATOR MATTHEW MANZANARES M.D. Performed By: #### C MP, CBC, PT #### [address] #### HBCAB, HCV RNAQNT, HBSAG, HCV ELI #### [facility] , Basophils/100 WBC (Bld) 0.8 % Normal . [facility] Comment on above: Order Comment: Reaso n for Exam Hepatitis C Performed By: #### C MP, CBC, PT #### [address] #### HBCAB, HCV RNAQNT, HBSAG, HCV ELI #### [facility] , Eosinophils (Bld) [#/Vol] 0.1 10*3/uL Normal 0.0-0.45 [facility] Comment on above: Order Comment: Reaso n for Exam Hepatitis C Performed By: #### C MP, CBC, PT #### [facility] [address] [place] [address] #### HBCAB, HCV RNAQNT, HBSAG, HCV ELI #### [facility] , Eosinophils/100 WBC (Bld) 3.6 % Normal . [facility] Comment on above: Order Comment: Reaso n for Exam Hepatitis C Performed By: #### C MP, CBC, PT #### [address] #### HBCAB, HCV RNAQNT, HBSAG, HCV ELI #### [facility] , Erythrocyte distribution width (RBC) [Ratio] 12.9 % Normal 12.0-14.8 [facility] Comment on above: Order Comment: Reaso n for Exam Hepatitis C Performed By: #### C MP, CBC, PT #### [address] #### HBCAB, HCV RNAQNT, HBSAG, HCV ELI #### [facility] , Hematocrit (Bld) [Volume fraction] 43.1 % Normal 38.8-50.0 [facility] Comment on above: Order Comment: Reaso n for Exam Hepatitis C Performed By: #### C MP, CBC, PT #### [facility] [address] [place] [address] #### HBCAB, HCV RNAQNT, HBSAG, HCV ELI #### [facility] , Hemoglobin (Bld) [Mass/Vol] 14.5 g/dL Normal 13.0-17.0 [facility] Comment on above: Order Comment: Reaso n for Exam Hepatitis C Performed By: #### C MP, CBC, PT #### [address] #### HBCAB, HCV RNAQNT, HBSAG, HCV ELI #### [facility] , Lymphocytes (Bld) [#/Vol] 1.2 10*3/uL Normal 1.00-4.8 [facility] Comment on above: Order Comment: Reaso n for Exam Hepatitis C Performed By: #### C MP, CBC, PT #### [address] #### HBCAB, HCV RNAQNT, HBSAG, HCV ELI #### [facility] , Lymphocytes/100 WBC (Bld) 28.7 % Normal . [facility] Comment on above: Order Comment: Reaso n for Exam Hepatitis C Performed By: #### C MP, CBC, PT #### [place] [address] [place] #### HBCAB, HCV RNAQNT, HBSAG, HCV ELI #### [facility] , MCH (RBC) [Entitic mass] 30.5 pg Normal 27.5-35.2 [facility] Comment on above: Order Comment: Reaso n for Exam Hepatitis C Performed By: #### C MP, CBC, PT #### [facility] [address] [place] [address] #### HBCAB, HCV RNAQNT, HBSAG, HCV ELI #### [facility] , MCV (RBC) [Entitic vol] 90.7 fL Normal 83.5-101 [facility] Comment on above: Order Comment: Reaso n for Exam Hepatitis C Performed By: #### C MP, CBC, PT #### [facility] [address] [place] [address] #### HBCAB, HCV RNAQNT, HBSAG, HCV ELI #### [facility] , Mean Corpuscular HGB Conc 33.7 g/dL Normal 32.5-35.6 [facility] Comment on above: Order Comment: Reaso n for Exam Hepatitis C Performed By: #### C MP, CBC, PT #### [facility] [address] [place] [address] #### HBCAB, HCV RNAQNT, HBSAG, HCV ELI #### [facility] , Monocytes (Bld) [#/Vol] 0.4 10*3/uL Normal 0.0-0.8 [facility] Comment on above: Order Comment: Reaso n for Exam Hepatitis C Performed By: #### C MP, CBC, PT #### [facility] [address] [place] [address] [place] #### HBCAB, HCV RNAQNT, HBSAG, HCV ELI #### [facility] , Monocytes/100 WBC (Bld) 8.7 % Normal . [facility] Comment on above: Order Comment: Reaso n for Exam Hepatitis C Performed By: #### C MP, CBC, PT #### [facility] [address] [place] [address] #### HBCAB, HCV RNAQNT, HBSAG, HCV ELI #### [facility] , Neutrophils (Bld) [#/Vol] 2.4 10*3/uL Normal 1.8-7.7 [facility] Comment on above: Order Comment: Reaso n for Exam Hepatitis C Performed By: #### C MP, CBC, PT #### [facility] [address] [place] [address] #### HBCAB, HCV RNAQNT, HBSAG, HCV ELI #### [facility] , Neutrophils/100 WBC (Bld) 58.2 % Normal . [facility] Comment on above: Order Comment: Reaso n for Exam Hepatitis C Performed By: #### C MP, CBC, PT #### [address] #### HBCAB, HCV RNAQNT, HBSAG, HCV ELI #### [facility] , Nucleated RBC/100 WBC (Bld) [Ratio] 0.0 % Normal 0-0.5 [facility] Comment on above: Order Comment: Reaso n for Exam Hepatitis C Performed By: #### C MP, CBC, PT #### [address] #### HBCAB, HCV RNAQNT, HBSAG, HCV ELI #### [facility] , Platelet mean volume (Bld) [Entitic vol] 9.0 fL Normal 6.6-10.1 [facility] Comment on above: Order Comment: Reaso n for Exam Hepatitis C Performed By: #### C MP, CBC, PT #### [facility] [address] [place] [address] #### HBCAB, HCV RNAQNT, HBSAG, HCV ELI #### [facility] , Platelets (Bld) [#/Vol] 186 10*3/uL Normal 150-450 [facility] Comment on above: Order Comment: Reaso n for Exam Hepatitis C Performed By: #### C MP, CBC, PT #### [facility] [address] [place] [address] #### HBCAB, HCV RNAQNT, HBSAG, HCV ELI #### [facility] , RBC (Bld) [#/Vol] 4.76 10*6/uL Normal 3.90-5.60 [facility] Comment on above: Order Comment: Reaso n for Exam Hepatitis C Performed By: #### C MP, CBC, PT #### [address] #### HBCAB, HCV RNAQNT, HBSAG, HCV ELI #### [facility] , WBC (Bld) [#/Vol] 4.2 10*3/uL Low 4.5-11.0 [facility] Comment on above: Order Comment: Reaso n for Exam Hepatitis C Performed By: #### C MP, CBC, PT #### [address] #### HBCAB, HCV RNAQNT, HBSAG, HCV ELI #### [facility] , Comprehensive Metabolic Pane samaria 11-27-2021 Albumin [Mass/Vol] 4.2 g/dL Normal 3.2-5.5 [facility] Comment on above: Order Comment: Reaso n for Exam Hepatitis C Performed By: #### C MP, CBC, PT #### [facility] [address] [place] [address] [place] #### HBCAB, HCV RNAQNT, HBSAG, HCV ELI #### [facility] , Albumin/Globulin [Mass ratio] 1.3 {ratio} Normal [facility] Comment on above: Order Comment: Reaso n for Exam Hepatitis C Performed By: #### C MP, CBC, PT #### [facility] [address] [place] [address] [place] #### HBCAB, HCV RNAQNT, HBSAG, HCV ELI #### [facility] , ALP [Catalytic activity/Vol] 52 U/L Normal 32-92 [facility] Comment on above: Order Comment: Reaso n for Exam Hepatitis C Result Comment: PERF ORMED BY: [place] [address] PATHOLOGIST RESCUE BOAT OPERATOR MATTHEW MANZANARES M.D. Performed By: #### C MP, CBC, PT #### [facility] [address] [place] [address] #### HBCAB, HCV RNAQNT, HBSAG, HCV ELI #### [facility] , ALT [Catalytic activity/Vol] 81 U/L High 10-60 [facility] Comment on above: Order Comment: Reaso n for Exam Hepatitis C Performed By: #### C MP, CBC, PT #### [facility] [address] [place] [address] #### HBCAB, HCV RNAQNT, HBSAG, HCV ELI #### [facility] , AST [Catalytic activity/Vol] 39 U/L Normal 10-42 [facility] Comment on above: Order Comment: Reaso n for Exam Hepatitis C Performed By: #### C MP, CBC, PT #### [facility] [address] [place] [address] #### HBCAB, HCV RNAQNT, HBSAG, HCV ELI #### [facility] , Bilirubin [Mass/Vol] 0.9 mg/dL Normal 0.3-1.2 [facility] Comment on above: Order Comment: Reaso n for Exam Hepatitis C Performed By: #### C MP, CBC, PT #### [facility] [address] [place] [address] [place] #### HBCAB, HCV RNAQNT, HBSAG, HCV ELI #### [facility] , Calcium [Mass/Vol] 9.3 mg/dL Normal 8.2-10.2 [facility] Comment on above: Order Comment: Reaso n for Exam Hepatitis C Performed By: #### C MP, CBC, PT #### [facility] [address] [place] [address] [place] #### HBCAB, HCV RNAQNT, HBSAG, HCV ELI #### [facility] , Chloride [Moles/Vol] 102 mmol/L Normal 95-114 [facility] Comment on above: Order Comment: Reaso n for Exam Hepatitis C Performed By: #### C MP, CBC, PT #### [facility] [address] [place] [address] [place] #### HBCAB, HCV RNAQNT, HBSAG, HCV ELI #### [facility] , CO2 [Moles/Vol] 26.8 mmol/L Normal 22.0-30.0 [facility] Comment on above: Order Comment: Reaso n for Exam Hepatitis C Performed By: #### C MP, CBC, PT #### [facility] [address] [place] [address] #### HBCAB, HCV RNAQNT, HBSAG, HCV ELI #### [facility] , Creatinine [Mass/Vol] 0.82 mg/dL Normal 0.64-1.27 [facility] Comment on above: Order Comment: Reaso n for Exam Hepatitis C Performed By: #### C MP, CBC, PT #### [facility] [address] [place] [address] #### HBCAB, HCV RNAQNT, HBSAG, HCV ELI #### [facility] , Estimated GFR ( [place] > 60 [facility] Comment on above: Order Comment: Reaso n for Exam Hepatitis C Result Comment: GFR estimated reference range: According to KDOQI guidelines, <60 ml/min/1.73m2 is sufficient to diagnose a patient with chronic kidney disease. Performed By: #### C MP, CBC, PT #### [facility] [address] [place] [address] [place] #### HBCAB, HCV RNAQNT, HBSAG, HCV ELI #### [facility] , Estimated GFR (Non- Am > 60 Normal [facility] Comment on above: Order Comment: Reaso n for Exam Hepatitis C Performed By: #### C MP, CBC, PT #### [facility] [address] [place] [address] #### HBCAB, HCV RNAQNT, HBSAG, HCV ELI #### [facility] , Globulin (S) [Mass/Vol] 3.3 g/dL Normal [facility] Comment on above: Order Comment: Reaso n for Exam Hepatitis C Performed By: #### C MP, CBC, PT #### [facility] [address] [place] [address] #### HBCAB, HCV RNAQNT, HBSAG, HCV ELI #### [facility] , Glucose [Mass/Vol] 92 mg/dL Normal 70-100 [facility] Comment on above: Order Comment: Reaso n for Exam Hepatitis C Result Comment: [facility] Glucose Reference Range is dependent on time and content of last meal. Glucose of more than 200 mg/dL in a nonstressed, ambulatory subject supports the diagnosis of Diabetes Mellitus. ADA recommended reference range Performed By: #### C MP, CBC, PT #### [facility] [address] [place] [address] #### HBCAB, HCV RNAQNT, HBSAG, HCV ELI #### [facility] , Potassium [Moles/Vol] 3.8 mmol/L Normal 3.5-5.1 [facility] Comment on above: Order Comment: Reaso n for Exam Hepatitis C Performed By: #### C MP, CBC, PT #### [facility] [address] [place] [address] [place] #### HBCAB, HCV RNAQNT, HBSAG, HCV ELI #### [facility] , Protein [Mass/Vol] 7.5 g/dL Normal 6.1-7.9 [facility] Comment on above: Order Comment: Reaso n for Exam Hepatitis C Performed By: #### C MP, CBC, PT #### [facility] [address] [place] [address] #### HBCAB, HCV RNAQNT, HBSAG, HCV ELI #### [facility] , Sodium [Moles/Vol] 137 mmol/L Normal 136-146 [facility] Comment on above: Order Comment: Reaso n for Exam Hepatitis C Performed By: #### C MP, CBC, PT #### [facility] [address] [place] [address] #### HBCAB, HCV RNAQNT, HBSAG, HCV ELI #### [facility] , Urea nitrogen [Mass/Vol] 11 mg/dL Normal 9-23 [facility] Comment on above: Order Comment: Reaso n for Exam Hepatitis C Performed By: #### C MP, CBC, PT #### [address] #### HBCAB, HCV RNAQNT, HBSAG, HCV ELI #### [facility] , Hep C Genotyping Non Reflexo n 11-27-2021 Hepatitis C Genotype 1a Normal . [facility] Comment on above: Order Comment: Reaso n for Exam Hepatitis C Performed By: #### C MP, CBC, PT #### [facility] [address] [place] [address] #### HBCAB, HCV RNAQNT, HBSAG, HCV ELI #### [facility] , Please Note: Normal . [facility] Comment on above: Order Comment: Reaso n [...] as investigational or for research. Performed at: [address] [id number] Clocksmith: Vida Beltran MD, Phone: [phone] PERFORMED BY: [place] [address] PATHOLOGIST RESCUE BOAT OPERATOR MATTHEW MANZANARES M.D. Performed By: #### C MP, CBC, PT #### [address] #### HBCAB, HCV RNAQNT, HBSAG, HCV ELI #### [facility] , Hep C RT-PCR, Qnt (Non-Graph )on 11-27-2021 HCV Log10 6.760 Normal . [facility] Comment on above: Order Comment: Reaso n for Exam Hepatitis C Result Comment: Resu lt Units: log10 IU/mL Performed By: #### C MP, CBC, PT #### [address] #### HBCAB, HCV RNAQNT, HBSAG, HCV ELI #### [facility] , Hepatitis C Quantitation [id number] Normal . [facility] Comment on above: Order Comment: Reaso n for Exam Hepatitis C Performed By: #### C MP, CBC, PT #### [address] #### HBCAB, HCV RNAQNT, HBSAG, HCV ELI #### [facility] , Test Information: Normal . [facility] Comment on above: Order Comment: Reaso n for Exam Hepatitis C Result Comment: The quantitative range of this assay is 15 IU/mL to 100 million IU/mL. Performed at: - [address] [id number] Clocksmith: Vida Beltran MD, Phone: [phone] Performed By: #### C MP, CBC, PT #### [address] #### HBCAB, HCV RNAQNT, HBSAG, HCV ELI #### [facility] , Hepatitis B Core Antibodyon 11-27-2021 Hepatitis B Core Antibody Negative Normal Negative [facility] Comment on above: Order Comment: Reaso n for Exam Hepatitis C Result Comment: Perf ormed at: - [facility] [address] [place], [place] [id number] Clocksmith: Supa Edwards PhD, Phone: [phone] Performed By: #### C MP, CBC, PT #### [address] #### HBCAB, HCV RNAQNT, HBSAG, HCV ELI #### [facility] , Hepatitis B Surface Antigeno n 11-27-2021 HBsAg Screen Negative Normal Negative [facility] Comment on above: Order Comment: Reaso n for Exam Hepatitis C Performed By: #### C MP, CBC, PT #### [address] #### HBCAB, HCV RNAQNT, HBSAG, HCV ELI #### [facility] , Prothrombin Time INRon 11-27 INR Coag (PPP) [Relative time] 1.1 {INR} Normal [facility] Comment on above: Order Comment: Reaso n [...] heart valves: 3 - 4.5 PERFORMED BY: [place] [address] PATHOLOGIST RESCUE BOAT OPERATOR MATTHEW MANZANARES M.D. Performed By: #### C MP, CBC, PT #### [place] [address] [place] #### HBCAB, HCV RNAQNT, HBSAG, HCV ELI #### [facility] , PT Coag (PPP) [Time] 12.8 s Normal 9.0-12.9 [facility] Comment on above: Order Comment: Reaso n for Exam Hepatitis C Performed By: #### C MP, CBC, PT #### [facility] [address] [place] [address] [facility] #### HBCAB, HCV RNAQNT, HBSAG, HCV ELI #### [facility] , Cult,Urine,CCon 01-30-2018 Cult,Urine,CC Specimen Description .CLEAN CATCH URINE Performed at [address] [address] Special Requests NOT REPORTEDCulture NO GROWTH Performed at [place] [id number] [place] [address] Report Status FINAL 01/30/2018 Normal [facility] Comment on above: Performed By: #### C SABAS ####[address] [id number] [address] [address] CBC with Diffon 01-29-2018 Abs. Basophil 0.10 k/uL Normal 0.0-0.2 [facility] Comment on above: Result Comment: Perf ormed at [address] [address] Performed By: #### C DP, CP, LIP, MG, EDTOX ####[address] [address] Abs.Neutrophil (Seg) 4.00 k/uL Normal 1.3-9.1 [facility] Comment on above: Performed By: #### C DP, CP, LIP, MG, EDTOX ####[address] [address] Basophils/100 WBC Auto (Bld) 1 % Normal 0-2 [facility] Comment on above: Performed By: #### C DP, CP, LIP, MG, EDTOX ####[address] [address] Eosinophils 0.30 10*3/uL Normal 0.0-0.4 [facility] Comment on above: Performed By: #### C DP, CP, LIP, MG, EDTOX ####[place] [address] [place] [address] Eosinophils/100 leukocytes 4 % Normal 0-4 [facility] Comment on above: Performed By: #### C DP, CP, LIP, MG, EDTOX ####[place] [address] [place] [address] Erythrocyte distribution width Auto Ratio (RBC) 13.0 % Normal 11.5-14.9 [facility] Comment on above: Performed By: #### C DP, CP, LIP, MG, EDTOX ####[place] [address] [place] [address] Erythrocytes (RBC) 4.75 10*6/uL Normal 4.5-5.9 [facility] Comment on above: Performed By: #### C DP, CP, LIP, MG, EDTOX ####[place] [address] [place] [address] Hematocrit (HCT) 43.4 % Normal 41-53 [facility] Comment on above: Performed By: #### C DP, CP, LIP, MG, EDTOX ####[facility] [place] [address] Hemoglobin mass conc (Bld) 14.5 g/dL Normal 13.5-17.5 [facility] Comment on above: Performed By: #### C DP, CP, LIP, MG, EDTOX ####[place] [address] [place] [address] Lymphocytes 1.40 10*3/uL Normal 1.0-4.8 [facility] Comment on above: Performed By: #### C DP, CP, LIP, MG, EDTOX ####[place] [address] [place] [address] Lymphocytes/100 leukocytes 23 % Low 24-44 [facility] Comment on above: Performed By: #### C DP, CP, LIP, MG, EDTOX ####[place] [address] [place] [address] MCH 30.6 pg Normal 26-34 [facility] Comment on above: Performed By: #### C DP, CP, LIP, MG, EDTOX ####[address] [place] [address] MCHC mass conc (RBC) 33.5 g/dL Normal 31-37 [facility] Comment on above: Performed By: #### C DP, CP, LIP, MG, EDTOX ####[address] [address] MCV 91.3 fL Normal 80-100 [facility] Comment on above: Performed By: #### C DP, CP, LIP, MG, EDTOX ####[address] [place] [address] Monocytes 0.50 10*3/uL Normal 0.1-1.3 [facility] Comment on above: Performed By: #### C DP, CP, LIP, MG, EDTOX ####[address] [place] [address] Monocytes/100 leukocytes 8 % High 1-7 [facility] Comment on above: Performed By: #### C DP, CP, LIP, MG, EDTOX ####[address] [place] [address] Neutrophil (Seg) 64 % Normal 36-66 [facility] Comment on above: Performed By: #### C DP, CP, LIP, MG, EDTOX ####[address] [place] [address] Platelet mean volume (PMV) 9.4 fL Normal 6.0-12.0 [facility] Comment on above: Performed By: #### C DP, CP, LIP, MG, EDTOX ####[address] [place] [address] Platelets 185 10*3/uL Normal 150-450 [facility] Comment on above: Performed By: #### C DP, CP, LIP, MG, EDTOX ####[address] [address] WBC (Leukocytes) 6.3 10*3/uL Normal 3.5-11.0 [facility] Comment on above: Performed By: #### C DP, CP, LIP, MG, EDTOX ####[address] [address] Auto Diff Performed NOT REPORTED Normal [facility] Comment on above: Performed By: #### C DP, CP, LIP, MG, EDTOX ####[address] [address] Erythrocyte morphology NOT REPORTED Normal [facility] Comment on above: Performed By: #### C DP, CP, LIP, MG, EDTOX ####[address] [place] [address] Erythrocytes (RBC) NOT REPORTED Normal [facility] Comment on above: Performed By: #### C DP, CP, LIP, MG, EDTOX ####[address] [address] Granulocytes/100 WBC (Bld) NOT REPORTED Normal 0.00-0.30 [facility] Comment on above: Performed By: #### C DP, CP, LIP, MG, EDTOX ####[facility] [place] [address] Immature granulocytes #/vol (Bld) NOT REPORTED Normal 0 [facility] Comment on above: Performed By: #### C DP, CP, LIP, MG, EDTOX ####[facility] [facility] [place] [address] Platelets NOT REPORTED Normal [facility] Comment on above: Performed By: #### C DP, CP, LIP, MG, EDTOX ####[place] [address] [facility] [place] [address] WBC Morphology NOT REPORTED Normal [facility] Comment on above: Performed By: #### C DP, CP, LIP, MG, EDTOX ####[place] [id number] [facility] [place] [address] Comp Metabolic Profon 2017 (cont.) Normal [facility] Comment on above: Result Comment: Aver age GFR for 20-29 years old: 116 mL/min/1.73sq mChronic Kidney Disease: <60 mL/min/1.73sq mKidney failure: <15 mL/min/1.73sq meGFR calculated using average adult body mass. Additional eGFR calculator available at:http://www.Cobase.Talknote/multiple_crcl_2012.htmPerformed at [facility] [address] [facility] [place] [address] Performed By: #### C DP, CP, LIP, MG, EDTOX ####[facility] [facility] [place] [address] Alanine aminotransferase (ALT) 111 U/L High 5-41 [facility] Comment on above: Performed By: #### C DP, CP, LIP, MG, EDTOX ####[facility] [place] [address] Albumin 4.8 g/dL Normal 3.5-5.2 [facility] Comment on above: Performed By: #### C DP, CP, LIP, MG, EDTOX ####[facility] [place] [address] Alkaline Phos 62 U/L Normal 40-129 [facility] Comment on above: Performed By: #### C DP, CP, LIP, MG, EDTOX ####[facility] [place], [place] [address] [place] [address] Anion gap 14 mmol/L Normal 9-17 [facility] Comment on above: Performed By: #### C DP, CP, LIP, MG, EDTOX ####[address] [place] [address] Aspartate aminotransferase (AST) 55 U/L High <40 [facility] Comment on above: Performed By: #### C DP, CP, LIP, MG, EDTOX ####[facility] [place], [place] [address] [facility] [place] [address] Bilirubin Ql (U) 1.02 mg/dL Normal 0.3-1.2 [facility] Comment on above: Performed By: #### C DP, CP, LIP, MG, EDTOX ####[address] [place] [address] Calcium 9.4 mg/dL Normal 8.6-10.4 [facility] Comment on above: Performed By: #### C DP, CP, LIP, MG, EDTOX ####[address] [place] [address] Chloride 101 mmol/L Normal 98-107 [facility] Comment on above: Performed By: #### C DP, CP, LIP, MG, EDTOX ####[address] [address] CO2 24 mmol/L Normal 20-31 [facility] Comment on above: Performed By: #### C DP, CP, LIP, MG, EDTOX ####[facility] [place] [address] Creatinine 0.86 mg/dL Normal 0.70-1.20 [facility] Comment on above: Performed By: #### C DP, CP, LIP, MG, EDTOX ####[facility] [place] [address] eGFR (non-black) mL/min/{1.73_m2} Normal >60 [facility] Comment on above: Performed By: #### C DP, CP, LIP, MG, EDTOX ####[facility] [place], [place] [address] [place] [address] Glucose mass conc 103 mg/dL High 70-99 [facility] Comment on above: Performed By: #### C DP, CP, LIP, MG, EDTOX ####[facility] [place], [place] [address] [facility] [place] [address] Potassium molar conc 4.3 mmol/L Normal 3.7-5.3 [facility] Comment on above: Performed By: #### C DP, CP, LIP, MG, EDTOX ####[facility] [place], [place] [address] [place] [address] Protein 8.1 g/dL Normal 6.4-8.3 [facility] Comment on above: Performed By: #### C DP, CP, LIP, MG, EDTOX ####[place] [address] [place] [address] Sodium 139 mmol/L Normal 135-144 [facility] Comment on above: Performed By: #### C DP, CP, LIP, MG, EDTOX ####[facility] [facility] [place] [address] Urea nitrogen 12 mg/dL Normal 6-20 [facility] Comment on above: Performed By: #### C DP, CP, LIP, MG, EDTOX ####[facility] [place] [address].[place] [address] Albumin/Globulin Ratio NOT REPORTED Normal 1.0-2.5 [facility] Comment on above: Performed By: #### C DP, CP, LIP, MG, EDTOX ####[address] [place] [address] BUN/CRE Ratio NOT REPORTED Normal 9-20 [facility] Comment on above: Performed By: #### C DP, CP, LIP, MG, EDTOX ####[address] [place] [address] Staging: NOT REPORTED Normal [facility] Comment on above: Performed By: #### C DP, CP, LIP, MG, EDTOX ####[address] [address] Drug Scr, Abuse, Uron 2017 Amphetamine(s),Ur Negative Normal NEG [facility] Comment on above: Result Comment: (Pos itive cutoff 1000 ng/mL) Performed By: #### U AX, UMICAO, LATISHA, UTAD ####[address] [address] Barbiturate(s),Ur Negative Normal NEG [facility] Comment on above: Result Comment: (Pos itive cutoff 200 ng/mL) Performed By: #### U AX, UMICAO, LATISHA, UTAD ####[address] [address] Base excess Negative Normal NEG [facility] Comment on above: Result Comment: (Pos itive cutoff 300 ng/mL) Performed By: #### U AX, UMICAO, LATISHA, UTAD ####[place] [address] [place] [address] Benzodiazepine(s) Negative Normal NEG [facility] Comment on above: Result Comment: (Pos itive cutoff 200 ng/mL) Performed By: #### U AX, UMICAO, LATISHA, UTAD ####[facility] [place] [address] Cannabinoid(s),Ur Positive Abnormal NEG [facility] Comment on above: Result Comment: (Pos itive cutoff 50 ng/mL) Performed By: #### U AX, UMICAO, LATISHA, UTAD ####[address] [address] Interpretive Info Assay provides medical screening only. The absence of expected drug(s) and/or Normal [facility] Comment on above: Result Comment: meta bolite(s) may indicate diluted or adulterated urine, limitations of testing or timing of collection.Testing for legal purposes should be confirmed by another method. To request confirmation of test result, please call the lab within 7 days of sample submission.Performed at [facility] [address] [place] [address] Performed By: #### U AX, UMICAO, LATISHA, UTAD ####[facility] [place] [address] Opiate(s), Ur Negative Normal NEG [facility] Comment on above: Result Comment: (Pos itive cutoff 300 ng/mL) Performed By: #### U AX, UMICAO, LATISHA, UTAD ####[address] [address] Oxycodone, Urine Negative Normal NEG [facility] Comment on above: Result Comment: (Pos itive cutoff 100 ng/mL) Performed By: #### U AX, UMICAO, LATISHA, UTAD ####[address] [address] Phencyclidine, Ur Negative Normal NEG [facility] Comment on above: Result Comment: (Pos itive cutoff 25 ng/mL) Performed By: #### U AX, UMICAO, LATISHA, UTAD ####[address] [address] Urine, methadone presence Negative Normal NEG [facility] Comment on above: Result Comment: (Pos itive cutoff 300 ng/mL) Performed By: #### U AX, UMICAO, LATISHA, UTAD ####[address] [address] Buprenorphrine, Ur NOT REPORTED Normal NEG [facility] Comment on above: Performed By: #### U AX, UMICAO, LATISHA, UTAD ####[address] [address] MDMA, Urine NOT REPORTED Normal NEG [facility] Comment on above: Performed By: #### U AX, UMICAO, LATISHA, UTAD ####[address] [address] Methamphetamine, Ur NOT REPORTED Normal NEG [facility] Comment on above: Performed By: #### U AX, UMICAO, LATISHA, UTAD ####[address] [address] Propoxyphene,Urine NOT REPORTED Normal NEG [facility] Comment on above: Performed By: #### U AX, UMICAO, LATISHA, UTAD ####[address] [address] Urine, tricyclic antidepressants NOT REPORTED Normal NEG [facility] Comment on above: Performed By: #### U AX, MATIAS, LATISHA, UTAD ####[place] [address] [place] [address] Lipaseon 01-29-2018 Lipase 21 U/L Normal 13-60 [facility] Comment on above: Result Comment: Perf ormed at [facility] [address] [facility] [place] [address] Performed By: #### C DP, CP, LIP, MG, EDTOX ####[facility] [place], [place] [address] [place] [address] Magnesiumon 01-29-2018 Magnesium 2.5 mg/dL Normal 1.6-2.6 [facility] Comment on above: Result Comment: Perf ormed at [place] [address] [facility] [place] [address] Performed By: #### C DP, CP, LIP, MG, EDTOX ####[address] [place] [address] Tox Scr, Bld, EDon 8 Acetaminophen mass conc <10 Low 10-30 [facility] Comment on above: Result Comment: Perf ormed at [facility] [address] [facility] [place] [address] Performed By: #### C DP, CP, LIP, MG, EDTOX ####[facility] [place], [place] [address] [place] [address] Salicylate <1 Low 3-10 [facility] Comment on above: Performed By: #### C DP, CP, LIP, MG, EDTOX ####[address] [place] [address] Ethanol mg/dL Normal <10 [facility] Comment on above: Performed By: #### C DP, CP, LIP, MG, EDTOX ####[address] [address] Ethanol percent <0.010 Normal [facility] Comment on above: Performed By: #### C DP, CP, LIP, MG, EDTOX ####[address] [address] UA w/Reflex Cultureon 2017 Acetaminophen mass conc Negative Normal NEG [facility] Comment on above: Performed By: #### U AX, UMICAO, LATISHA, UTAD ####[address] [address] Bilirubin (direct) Negative Normal NEG [facility] Comment on above: Performed By: #### U AX, UMICAO, LATISHA, UTAD ####[address] [address] Hemoglobin mass conc (Bld) TRACE Abnormal NEG [facility] Comment on above: Performed By: #### U AX, UMICAO, LATISHA, UTAD ####[address] [address] Nitrite,Ur Negative Normal NEG [facility] Comment on above: Performed By: #### U AX, UMICAO, LATISHA, UTAD ####[address] [address] Turbidity CLEAR Normal CLEAR [facility] Comment on above: Performed By: #### U AX, UMICAO, LATISHA, UTAD ####[address] [address] Urine, color YELLOW Normal YEL [facility] Comment on above: Performed By: #### U AX, UMICAO, LATISHA, UTAD ####[address] [place] [address] Urine, glucose presence Negative Normal NEG [facility] Comment on above: Performed By: #### U AX, UMICAO, LATISHA, UTAD ####[address] [place] [address] Urine, leukocyte esterase presence TRACE Abnormal NEG [facility] Comment on above: Result Comment: Perf ormed at [facility] [address] [place] [address] Performed By: #### U AX, UMICAO, LATISHA, UTAD ####[address] [place] [address] Urine, pH 5.5 [pH] Normal 5.0-8.0 [facility] Comment on above: Performed By: #### U AX, UMMODESTOO, LATISHA, UTAD ####[address] [place] [address] Urine, protein presence Negative Normal NEG [facility] Comment on above: Performed By: #### U AX, UMICAO, LATISHA, UTAD ####[address] [place] [address] Urine, specific gravity 1.010 Normal 1.000-1.030 [facility] Comment on above: Performed By: #### U AX, UMICAO, LATISHA, UTAD ####[address] [place] [address] Urobilinogen,Ur Normal Normal NORM [facility] Comment on above: Performed By: #### U AX, UMICAO, LATISHA, UTAD ####[address] [place] [address] Comment NOT REPORTED Normal [facility] Comment on above: Performed By: #### U AX, UMICAO, LATISHA, UTAD ####[address] [facility] [place] [address] Ur.Tricyclic Antidepon 01-29 Ur.Tricyclic Antidep Negative Normal NEG [facility] Comment on above: Result Comment: (Pos itive cutoff 1000 ng/mL)Assay provides rapid clinical screening only. Presumptive positive results for legal purposes should be confirmed by another method. To request confirmation, please call the lab within 7 days of sample submission.Performed at [address] [address] Performed By: #### U AX, UMICAO, LATISHA, UTAD ####[address] [address] Urinalysis,Microon 8 ----- Normal [facility] Comment on above: Performed By: #### U AX, UMICAO, LATISHA, UTAD ####[address] [address] Urine WBC's 10 TO 20 Normal [facility] Comment on above: Performed By: #### U AX, UMICAO, LATISHA, UTAD ####[address] [address] Urine, bacteria in sediment FEW Abnormal NONE [facility] Comment on above: Result Comment: Perf ormed at [address] [address] Performed By: #### U AX, UMICAO, LATISHA, UTAD ####[address] [address] Urine, epithelial cells in sediment 0 TO 2 Normal [facility] Comment on above: Performed By: #### U AX, UMICAO, LATISHA, UTAD ####[address] [address] Urine, erythrocytes 2 TO 5 Normal [facility] Comment on above: Performed By: #### U AX, UMICAO, LATISHA, UTAD ####[facility] [place] [address] Epithelial, Renal NOT REPORTED Normal 0 [facility] Comment on above: Performed By: #### U AX, UMICAO, LATISHA, UTAD ####[address] [address] Mucus Strands NOT REPORTED Normal NONE [facility] Comment on above: Performed By: #### U AX, UMICAO, LATISHA, UTAD ####[address] [address] Other Observations NOT REPORTED Normal NREQ [facility] Comment on above: Performed By: #### U AX, UMICAO, LATISHA, UTAD ####[address] [address] Trichomonas NOT REPORTED Normal NONE [facility] Comment on above: Performed By: #### U AX, UMICAO, LATISHA, UTAD ####[address] [address] Urine, amorphous sediment presence in sediment NOT REPORTED Normal NONE [facility] Comment on above: Performed By: #### U AX, UMICAO, LATISHA, UTAD ####[address] [place] [address] Urine, casts in sediment NOT REPORTED Normal [facility] Comment on above: Performed By: #### U AX, UMICAO, LATISHA, UTAD ####[address] [place] [address] Urine, crystals in sediment NOT REPORTED Normal NONE [facility] Comment on above: Performed By: #### U AX, UMICAO, LATISHA, UTAD ####[facility] [facility] [place] [address] Urine, yeast presence in sediment NOT REPORTED Normal NONE [facility] Comment on above: Performed By: #### U AX, UMICAO, LATISHA, UTAD ####[facility] [facility] [place] [address] Vital Signs Date Time Vital Sign Value Performing Clinician Facility 01-15-2025 10:47-0500 Blood Pressure Location MILAGRO NKANSAH-AMANKRA [facility] 01-15-2025 10:47-0500 Diastolic blood pressure 92 mm[Hg] MILAGRO NKANSAH-AMANKRA [facility] 01-15-2025 10:47-0500 Heart rate 87 /min [facility] NKANSAH-AMANKRA [facility] 01-15-2025 10:47-0500 Respiratory rate 19 /min MILAGRO NKANSAH-AMANKRA [facility] 01-15-2025 10:47-0500 Systolic blood pressure 134 mm[Hg] MILAGRO NKANSAH-AMANKRA [facility] 11-03-2022 11:30-0500 Body height 170.18 cm Juan Manuel Ruffin Other [employer] Other 11-03-2022 11:30-0500 Body mass index (BMI) [Ratio] 24.27 kg/m2 Juan Manuel Ruffin Other [employer] Other 11-03-2022 11:30-0500 Body weight 70.31 kg Juan Manuel Ruffin Other [employer] Other 11-03-2022 11:30-0500 Diastolic blood pressure 80 mm[Hg] Juan Manuel Ruffin Other [employer] Other 11-03-2022 11:30-0500 Systolic blood pressure 120 mm[Hg] Juan Manuel Ruffin Other [employer] Other 11-13-2021 11:00-0500 Body height 170.18 cm Tara Calvinchris Other [employer] Other 11-13-2021 11:00-0500 Body mass index (BMI) [Ratio] 24.9 kg/m2 Tara Calvinchris Other [employer] Other 11-13-2021 11:00-0500 Body weight 72.12 kg Tara Calvinchris Other [employer] Other 09-19-2021 15:45-0400 Body height 170.18 cm Leticia Negrete Other [employer] Other 09-19-2021 15:45-0400 Body mass index (BMI) [Ratio] 25.84 kg/m2 Leticia Zaratemond Other [employer] Other 09-19-2021 15:45-0400 Body weight 74.84 kg Leticia Penelope Other [employer] Other Encounters Encounter Date Encounter Type Care Provider Facility Start: 01-15-2025 End: 01-15-[address] Start: 01-15-2025 End: 01-15-2025 Patient encounter procedure MILAGRO ESCALANTE [facility] Start: 11-24-2024 ambulatory MILAGRO ESCALANTE Facility:[facility] Tariq Start: 11-03-2022 End: 11-03-2022 ambulatory Juan Manuel Ruffin Other [facility] [employer] Other Start: 11-03-2022 Patient encounter procedure Juan Manuel Ruffin [facility] Start: 08-27-2022 End: 08-27-2022 ambulatory Tara Hamilton Other [employer] [employer] Other Start: 08-27-2022 Telephone encounter Tara Hamitlon [facility] Start: 08-24-2022 End: 08-24-2022 ambulatory Tara Hamilton Other [facility] [employer] Other Start: 08-24-2022 Telephone encounter Tara Hamilton [facility] Start: 08-21-2022 End: 08-21-[address] TARA HAMILTON Facility:[facility] Start: 08-20-2022 End: 08-21-[address] TARA HAMILTON Facility:[facility] Start: 08-19-2022 End: 08-19-2022 ambulatory Tara Hamilton [facility] Other Start: 08-19-2022 Telephone encounter Tara Hamilton [facility] Start: 07-29-2022 End: 07-29-[address] TARA HAMILTON Facility:[facility] Start: 07-20-2022 End: 07-21-[address] TARA HAMILTON Facility:[facility] Start: 07-07-2022 End: 07-07-2022 ambulatory Juan Manuel Ruffin Other [facility] [employer] Other Start: 07-07-2022 Telephone encounter Juan Manuel Ruffin [facility] Start: 11-13-2021 End: 11-13-2021 ambulatory Tara Simpsonchris Other [employer] [employer] Other Start: 11-13-2021 Office outpatient visit 25 minutes Tara Simpsonchris [facility] Start: 11-13-2021 Telephone encounter Tara Simpsonchris [facility] Start: 09-19-2021 Office outpatient visit 15 minutes Leticiavaughn Negrete [facility] Start: 09-19-2021 Telephone encounter Tara Hamilton [facility] Start: 01-29-2018 End: 01-29-2018 Emergency department patient visit [facility] Procedures Date Procedure Procedure Detail Performing Clinician Start: 08-24-[address] NAVARRO Comment on above: Performed By: #### O BSCRN #### [facility] [address] [place] [address] Dr. Kelsie Pires Start: 01-29-2018 DRUG SCREEN TRICYCLIC URINE MIRNA RODARTE Start: 01-29-2018 Microscopic urinalysis MIRNA RODARTE Start: 01-29-2018 UA W/REFLEX CULTURE JAM ES ASTER Start: 01-29-2018 URINE CULTURE CLEAN CATCH MIRNA [...] - 10 mg Leticia Dymon d Other [employer] Other 03-22-2021 KENALOG - 10 mg Leticia Dymon d Other [employer] [employer] Other 01-18-2020 Vivitrol Leticia Penelope Other [employer] [employer] Other 12-18-2019 Amador Negrete Other [facility] [employer] Other 11-17-2019 Amador Negrete Other [facility] [employer] Other 10-16-2019 Amador Negrete Other [facility] [employer] Other 03-10-2018 Amador Negrete Other [employer] Other Payers Date Payer Category Payer Self-pay 1991 Unknown [id number] 2.16.8 [id number] 1991 Unknown [id number] 2.16.84 [id number] 1991 Unknown [id number] 2.16.84 [id number] 1991 Unknown [id number] 2.16.84 [id number] 1991 Unknown [id number] 2.16.84 [id number] 1991 Unknown [id number] 2.16.8 [id number] 1991 Unknown [id number] 2.16.8 [id number] 1991 Unknown [id number] 2.16.8 [id number] 1959 Unknown [id number] Social History Date Type Detail Facility Unknown if ever smoked [facility] [employer] Other Sex Assigned At [facility] Start: 01-15-2025 Tobacco smoking status Never s moked tobacco (finding) [facility] Functional Status Date Assessment Result Facility 01-15-2025 Functional Status N/A [facility] Clinical Notes 09-19-2021 to 01-15-2025 Note Date & Type Note Facility 01-15-2025 Hospital Discharg e instructions Patient Education 01/15/2025 11:04:32 Testicular Self-Exam Testicular Self-Exam A self-examination of your testicles (testicular self-exam) involves looking at and feeling your testicles for abnormal lumps or swelling. Several things can cause swelling, lumps, or pain in your testicles, including: Injuries. Inflammation. Infection. Buildup of fluids around the testicle (hydrocele). Twisted testicles (testicular torsion). Testicular cancer. You may be at risk for this if you have: ?A testicle that has not descended. ?Previously had testicular cancer. ?A family history of testicular cancer. General tips It is easiest to do a self-exam during or after a warm bath or shower. Testicles are harder to examine when you are cold because the muscles attached to the testicles retract and pull them up higher or into the abdomen. A normal testicle is egg-shaped and feels firm. It is smooth and not tender. It is normal to feel a firm, spaghetti-like cord at the back of your testicle. This is the spermatic cord. Do a self-exam once a month. How to do a testicular self-exam 1.Stand and hold your penis away from your body. 2.Look at each testicle to check for changes in appearance, such as swelling or changes in size or shape. 3.Roll each testicle between your thumb and forefinger, feeling the entire testicle. Feel for: Lumps. Swelling. Discomfort. 4.Check for swelling or tender bumps in the groin area. Your groin is where your lower belly (abdomen) meets your upper thighs. Contact a health care provider if: You find a bump or lump. This may be a small, hard bump that is the size of a pea. You have swelling, pain, or soreness in your testicle area. You see or feel any other changes in your testicles. This information is not intended to replace advice given to you by your health care provider. Make sure you discuss any questions you have with your health care provider. Document Revised: 08/30/2023 Document Reviewed: 08/30/2023 [employer] Patient Education 2023 [employer]. Follow Up Care 01/08/2025 11:41:40 With:MILAGRO ESCALANTE MD, URL Address: When: Unknown [facility] 01-15-2025 Note Patient Education Urology Testicular Self-Exam A self-examination of your testicles (testicular self-exam) involves looking at and feeling your testicles for abnormal lumps or swelling. Several things can cause swelling, lumps, or pain in your testicles, including: ??? Injuries. ??? Inflammation. ??? Infection. ??? Buildup of fluids around the testicle (hydrocele). ??? Twisted testicles (testicular torsion). ??? Testicular cancer. You may be at risk for this if you have: ? A testicle that has not descended. ? Previously had testicular cancer. ? A family history of testicular cancer. General tips ??? It is easiest to do a self-exam during or after a warm bath or shower. Testicles are harder to examine when you are cold because the muscles attached to the testicles retract and pull them up higher or into the abdomen. ??? A normal testicle is egg-shaped and feels firm. It is smooth and not tender. ??? It is normal to feel a firm, spaghetti-like cord at the back of your testicle. This is the spermatic cord. ??? Do a self-exam once a month. How to do a testicular self-exam 1. Stand and hold your penis away from your body. 2. Look at each testicle to check for changes in appearance, such as swelling or changes in size or shape. 3. Roll each testicle between your thumb and forefinger, feeling the entire testicle. Feel for: ??? Lumps. ??? Swelling. ??? Discomfort. 4. Check for swelling or tender bumps in the groin area. Your groin is where your lower belly (abdomen) meets your upper thighs. Contact a health care provider if: ??? You find a bump or lump. This may be a small, hard bump that is the size of a pea. ??? You have swelling, pain, or soreness in your testicle area. ??? You see or feel any other changes in your testicles. This information is not intended to replace advice given to you by your health care provider. Make sure you discuss any questions you have with your health care provider. Document Revised: 08/30/2023 Document Reviewed: 08/30/2023 Elsevier Patient Education ? 2023 [employer]. [facility] 11-03-2022 History general N arrative - Reported Type Medical History 1x seizure Medical History HEPATITIS C Medical History Marijuana Use Medical History Opioid Dependence Medical History IBS-D Surgical History pin in right hand 2012 Surgical History EEG ambulatory - Dr Esqueda 06/17 17 Hospitalization History seizure 2013 Hospitalization History seizure 2018 [facility] [employer] [employer] Other 12-06-2022 Evaluation note* Encounter Date Diagnosis Assessment Notes Treatment Notes Treatment Clinical Notes Oct, Hepatitis C (ICD-10 - B19.20) Pt reassured of Hep C clearance. Oct, History of Clostridioides difficile infection (ICD-10 - Z86.19) Reassured pt that it may take a while for bowel habits to return back to normal. 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 [employer] Other Evaluation + Plan note No data available for this section [facility] evaluation noteNo InformationNort [employer] Other Hislvrk general Narrative - Reported* Type Description Date Medical History 1x seizure Medical History HEPATITIS C Medical History Marijuana Use Medical History Opioid Dependence Surgical History pin in right hand 2012 Surgical History EEG ambulatory - Dr Esqueda 06/17 17 Hospitalization History seizure 2013 [facility] Other Hisnsva general Narrative - Reported* Type Description Date Medical History 1x seizure -2013 Medical History HEPATITIS C Medical History Marijuana Use Medical History Opioid Dependence Medical History IBS-D Surgical History pin in right hand 2012 Surgical History EEG ambulatory - Dr Esqueda 06/17 17 Hospitalization History seizure 2013 [facility] Other Histhst general Narrative - Reported* Type Description Date Medical History 1x seizure -2013 Medical History HEPATITIS C Medical History Marijuana Use Medical History Opioid Dependence Medical History IBS-D Surgical History pin in right hand 2012 Surgical History EEG ambulatory - Dr Esqueda 06/17 17 Hospitalization History seizure 2013 Hospitalization History seizure 2018 [facility] Other Hospital Discharge instructions No data available for this section [facility] progress note No data available for this section [facility] Summary Purpose Family History No Family History Records FoundNo Family History Records FoundNo Family History Records FoundNo Family History Records FoundNo Family History Records Found No data available for this section No data available for this section Advance Directives No Advanced Directives Records FoundNo Advanced Directives Records FoundNo Advanced Directives Records FoundNo Advanced Directives Records FoundNo Advanced Directives Records Found Reason for Referral Reason appt pt needs cons ult to discuss colonoscopy due to persistent diarrhea/ Dr. Cruz Diagnosis 1 Diarrhea (R19.7) Referral Organization [facility] Referring Provider First Name Tara Referring Provider Last Name Alfonso Referring Provider Specialty Family Prac bhavani Referred Organization [facility] Referred Provider Balaji Cruz Referred Address [address] [place] [phone] Referred Provider Specialty Surgery Referral Priority Routine [...] section and content) DATE CREATED AUTHOR 05/20/2018 [facility] DATE CREATED AUTHOR AUTHOR'S ORGANIZ ATION 01/11/2022 [facility] DATE CREATED AUTHOR AUTHOR'S ORGANIZ ATION 08/30/2022 [facility] DATE CREATED AUTHOR AUTHOR'S ORGANIZ ATION 09/04/2022 [facility] DATE CREATED AUTHOR AUTHOR'S ORGANIZ ATION 01/16/2025 [facility] REASON FOR VISIT (unrecogniz ed section and content) #24 RED IMPALA, FEVER, CONGE STION, COUGH, COVID EXPOSURENo InformationPATIENT HERE FOR FOLLOW UP HEPATITIS CHEP C-MAVYRET- APPROVEDClinicaldiarrheareview labsreferral fyiPATIENT HERE FOR FOLLOW UP HEP C TREATMENT. PT WAS TREATED WITH MAVYRET Patient Care team informatio n (unrecognized section and content) Personnel Name: Tara Hamilton DO Address: Address: [address] [place] [address] [employer] [address] Personnel Name: Tara Hamilton DO Address: Address: [address] [place] [address] FOR RECORDS PERTAINING TO PATIENTS WHO ARE [...] BE BASED ON THE PRIMARY CLINICAL RECORDS. [employer] [facility]. provides no warranty or guarantee of the accuracy or completeness of information in this document.
--- NOTE | 2025-02-08 08:05 | ED.GENADUL1 ---
HPI HPI - General Adult General Chief complaint: Allergic Reaction Stated complaint: allergic reaction - eye swelling Time Seen by Provider: 02/08/25 07:59 Source: patient Mode of arrival: walk-in Limitations: no limitations History of Present Illness HPI narrative: 34-year-old male presents for rash which is primarily on his face. 2 days ago he was cutting down a tree in some brush and the rash started yesterday. Its mostly around his eyes and it itches a little bit. He has been taking Benadryl. He thinks it is poison eneida. No difficulty breathing or swallowing. Related Data Previous Rx's ?Medication ?Instructions ?Recorded prednisone 10 mg tablet See Rx Instructions .Route 02/08/25 .COMPLEX #30 tabs Allergies Allergy/AdvReac Type Severity Reaction Status Date / Time Penicillins Allergy Hives Verified 02/08/25 07:55 Opioid HPI Opioid Management Most Recent Opioid Data: No Data to Display Review of Systems ROS Narrative A ten point review of systems is negative except as noted above. PFSH PFSH Social History Little interest or pleasure in doing things: not at all Feeling down, depressed, or hopeless: not at all Exam Narrative Exam Narrative: Nurses note and vital signs reviewed and patient is not hypoxic. General: The patient appears in no apparent distress. Patient is resting comfortably on cart. Skin: Warm, dry, no pallor noted. There is erythematous rash primarily on his face and in particular around his eyes. Tongue not swollen. No open area or drainage Head: Normocephalic, atraumatic Eye: Normal conjunctiva, no drainage Ears, Nose, Mouth, and Throat: oral mucosa is moist. Nares patent. Cardiovascular: Regular Rate and Rhythm Respiratory: Patient is in no distress, no accessory muscle use, lungs are clear to auscultation, no wheezing, rales or rhonchi Back: non-tender GI: Soft and nontender Musculoskeletal: The patient has no evidence of calf tenderness, no pitting edema, symmetrical pulses noted bilaterally Neurological: A&O, normal speech Psychiatric: Cooperative Constitutional Vital Signs, click to edit/add: Last Vital Signs Temp 97.8 F 02/08/25 07:55 Pulse 94 H 02/08/25 07:55 Resp 20 02/08/25 07:55 BP 147/96 H 02/08/25 07:55 Pulse Ox 99 02/08/25 07:55 O2 Del Method Room Air 02/08/25 07:55 Course Vital Signs Vital signs: Vital Signs Temperature 97.8 F 02/08/25 07:55 Pulse Rate 94 H 02/08/25 07:55 Respiratory Rate 20 02/08/25 07:55 Blood Pressure 147/96 H 02/08/25 07:55 Pulse Oximetry 99 02/08/25 07:55 Oxygen Delivery Method Room Air 02/08/25 07:55 Temperature 97.8 F 02/08/25 07:55 Pulse Rate 94 H 02/08/25 07:55 Respiratory Rate 20 02/08/25 07:55 Blood Pressure 147/96 H 02/08/25 07:55 Pulse Oximetry 99 02/08/25 07:55 Oxygen Delivery Method Room Air 02/08/25 07:55 Medical Decision Making MDM Narrative Medical decision making narrative: My clinical impression is that he has poison eneida dermatitis. He was given IM Solu-Medrol and was prescribed prednisone and he will continue the Benadryl that he has been taking. Treatment diagnosis and follow-up were discussed with the patient. Differential Diagnosis Differential Diagnosis: Poison eneida, contact dermatitis, cellulitis Discharge Plan Discharge Chief Complaint: Allergic Reaction Clinical Impression: Poison eneida dermatitis Patient Disposition: Home, Self-Care Time of Disposition Decision: 08:04 Condition: Good Mode of Transportation: Private Vehicle Prescriptions / Home Meds: New prednisone 10 mg tablet See Rx Instructions .ROUTE .COMPLEX Qty: 30 0RF Rx Instructions: 4 by mouth daily for three days then 3 by mouth daily for three days then 2 by mouth daily for three days then 1 by mouth daily for three days Print Language: Romanian Instructions: Poison Eneida (ED) Referrals: TARA HAMILTON [Primary Care Provider] - 1 week
[2025-02-08] MEDS: METHYLPREDNISOLONE SOD SUCC PF 125 MG/2 ML VIAL IM (08:21)
== END 2025-02-08 08:29 | disposition home or self-care (01) ==
PROVIDERS: Emergency Provider Emergency Medicine; PCP Family Medicine
DX: L23.7 Allergic contact dermatitis due to plants, except food (principal)
CPT/HCPCS: 96372; 99284; J2919

== ENCOUNTER 2025-07-20 08:56 | Emergency (ER) | payer SELFPAY ==
--- OUTSIDE RECORDS SUMMARY | 2018-12-12 13:24 | XMS_ITS | Continuity of Care Document ---
Author Organization [facility] Address [address] [place] [address] Phone Care Team Providers Care Telecommunications Line Mechanic Name Role Phone Francis SPARKS, Max Unavailable Unavailable Allergies, Adverse Reactions, Alerts Substance Reaction Status Criticality allopurinol Rash Active No Information Penicillins Rash Active No Information Procedures Procedure Date PREV VISIT, NEW, AGE 18-39 PREV VISIT, NEW, AGE 18-39 [facility] SPECIMEN HANDLING (GC/CHLAMYDIA) Feb RPR (Dx) W/TITER & FTA HIV-1 Advance Directives Directive Yes / No Effective Date File Name No Information Encounters Encounter Description Practice Location Reason(s) For Visit Diagnoses Date Provider Providers Copied on Encounter [facility], [address] [place] [address], [id number], tel:[phone] [facility] No Information Francis Monterroso. [address] [place], [place], [id number], [place]. tel:[phone] PREV VISIT, NEW, AGE 18-39 [facility], [address], [place], [id number], [place] tel:[phone] [facility] STI male (chief complaint) Screening examination for venereal disease Donya Carpio. [address] [place] [address], [id number], [place]. tel:[phone] Family History Family Member Type Diagnosis Age At Onset No Information Payers Payer name Insurance type Covered libertarian ID Authoriza tion(s) No Information Social History Type Description Quantity Date Captured Comments Alcohol Use Details Unknown Caffeine Use Details Unknown Tobacco Use Status No Information Smoking Status No Information Sex Male Sexual Orientation Straight or heterosexual Chief Complaint And Reason For Visit No Information Reason For Referral Reason For Referral No Information History Of Present Illness Encounter Date Complaint History Of Prese nt Illness No Information Functional Status Date Functional Assessmen t No Information Instructions Date Instruction Additional Infor joshua Avoid sexual activit y while you await your test results. Related to Screening examination for venereal disease No treatment indicat ed today. Call for test results. Related to Screening examination for venereal disease Assessments Type Assessment Date No Information Patient Care Teams Name Effective Dates (start - stop) Status Members No Information
--- OUTSIDE RECORDS SUMMARY | 2024-04-04 07:15 | XMS_ITS ---
Author Organization [facility] es Address [address] [place] [address] Care Team Providers Care Folding Machine Tender Name Role Phone Avelina Cruz Primary Care Provider Chata Torres Unavailable [phone] REASON FOR VISIT FILLING Encounters Encounter Location Date Provider Diagnosis [place] [address] [place] [address] 04/04/2024 Chata Flores Plan Of Treatment No Information Progress Notes * RICKI PURVIS JrDOB:[birth year] (34 yo M)Acc No.[id number]:04/04/2024 Patient: Mac RICKI GONZALEZ Jr Provider: Gilberto FLORES DDS :1990 A ge:33 Y S ex:Male Date:04/04/2024 [facility] [id number] Pcp:Avelina Cruz Subjective: * Chief Complaints: * 1 . FILLING. * Medical History: Objective: * Vitals: Assessment: Plan: * Treatment: * Images: * Electronic signature of Nguyen Flores DDS on 07/20/2025 at 09:08 AM EDT Sign off status: Pending * Provider: Gilberto FLORES DDS Date: 04/04/2024 Generated for Printi ng/Faxing/eTransmitting on: 07/20/2025 09:08 AM EDT
[2025-07-20 09:02] VITALS: BP 128/86; PULSE 81; TEMP 37.1; O2SAT 99; BMI 30.4
--- OUTSIDE RECORDS SUMMARY | 2025-07-20 09:08 | XMS_ITS | Clinical Summary ---
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 Name Role Phone Brennon Gonzalez DO Primary Care Provider [phone] Allergies Active Allergy Reactions Criticality Noted Date Comments Penicillins Rash 01/17/2016 Medications No known medications Social History Tobacco Use Types Packs/Day Years Used Date Smoking Tobacco: Never Smokeless Tobacco: Current Snuff Alcohol Use Standard Drinks/Week Comments Not Asked 0 (1 standard drink = 0.6 oz pur e alcohol) Sex and Gender Information Value Date Recorded Sex Assigned at Not on file Legal Sex Male 2:26 AM EST Gender Identity Not on file Sexual Orientation Not on file Last Filed Vital Signs Vital Sign Reading Time Taken Comments Blood Pressure 127/68 01/17/2016 11:18 AM EST Pulse 120 01/17/2016 11:18 AM EST Temperature - - Respiratory Rate - - Oxygen Saturation - - Inhaled Oxygen Concentration - - Weight 73 kg (161 lb) 01/17/2016 11:18 AM EST Height - - Body Mass Index - - Plan of Treatment Health Maintenance Due Date Last Done Comments Anxiety Screening 2009 Depression Screening 2009 DTaP,Tdap,Td Vaccine (1 - Tdap) 2010 Hepatitis B Vaccine (1 of 3 - 19+ 3-dose series) 2010 HPV Vaccine (1 - 3-dose SCDM series) 2018 Influenza Vaccine (#1) 2025 HIV Screening Completed 10/23/2015 Hepatitis C Screening Completed 09/21/2016 , 06/29/2016, 04/06/2016, Additional history exists Procedures Procedure Name Priority Date/Time Associated Diagnosis Comments HIV 1,2 10/23/2015 5:39 AM EST from Last 3 Months or Most Recently Relevant to Health Maintenance Results * HIV 1,2 (10/23/2015 5:39 AM EST) HIV 1 & 2 Ab (EIA) Nonreactive Nonreactive [facility] 10/23/2015 5:39 AM EST 10/23/2015 5:47 AM EST us [facility] Final Re sult [facility] [address] [place] [address] [facility] [address] [place] [address] from Last 3 Months or Most Recently Relevant to Health Maintenance Insurance [facility]ET [facility] MEDICAID Care Teams Trolley Coach Driver Relationship Specialty Start Date End Date Brennon Gonzalez DO [address] [place] [id number] PCP - General Family Medicine 11/20/15
--- OUTSIDE RECORDS SUMMARY | 2025-07-20 09:20 | XMS_ITS | CCD ---
Author Organization [facility] Inform ion Partnership [facility] Care Team Providers Care Chair Springer Name Role Phone MIRNA RODARTE Unavailable Unavailable [...] Penicillian V Potassium Propensity to adverse reactions Begun Other (1 source) Penicillins Drug allergy (disorder) 4 [facility] Repository (2 sources) Amoxicillin; Translations: [amoxicillin] Drug Allergy Eruption of skin (disorder) [facility] Medications Completed/Discontinued Medications Medication Drug Class(es) Dates [...] Care Team Attending Physician - AVA DILL, [facility] Primary Care Physician - Tara Hamilton DO [...] provider. Document Revised: 08/30/2023 Document Reviewed: 08/30/2023 [employer] Patient Education ??? 2023 [employer]. Normal [facility] Urology Office/Clinic Noteon 01-15-2025 Urology Office/Clinic Note [...] with voice recognition artificial intelligence software, specifically Glokalise, [employer] and or Interwise. Substitutions may have occurred due to the [...] Use:., 01/15 (more content not included)... Normal [facility] Comment on above: Result Comment: Elec tronically Signed By: MILAGRO ESCALANTE MD\.br\Date and Time Signed: 01/15/25 11:10 EST\.br\Electronically Co-Signed By: Candice Figueroa\.br\Date and Time Co-Signed: 01/15/25 11:06 EST LACTOFERRIN FECAL QUANTon Lactoferrin, Fecal, Quant. <1.00 Normal 0.00-7.24 [facility] Comment on above: Result Comment: Re sults [...] (IBS). Performed By: #### L ACTFQ #### [facility] [address] [place] [address] Dr. Kelsie Pires OVA AND PARASITE EXAMINATION on 08-29-2022 Ova + Parasite Exam Final report Normal [facility] Comment on above: Result Comment: Thes e results were obtained using wet preparation(s) and trichrome stained smear. This test does not include testing for Cryptosporidium parvum, Cyclospora, or Microsporidia. Performed By: #### O VAPE #### [facility] [address] [address] [address] Kelsie Pires Result 1 Comment Normal [facility] Comment on above: Result Comment: No o va, cysts, or parasites seen. . One negative specimen does not rule out the possibility of a parasitic infection. Performed By: #### O VAPE #### [facility] [address] [address] [address] Kelsie Pires STOOL CULTUREon 08-28-2022 Campylobacter Culture Final report Normal [facility] Comment on above: Performed By: #### O BSCRN #### [facility] [address] [address] [address] Kelsie Pires E coli Shiga Toxin EIA Negative Normal Negative [facility] Comment on above: Performed By: #### O BSCRN #### [facility] [address] [address] [address] Kelsie Pires Result 1 Comment Normal [facility] Comment on above: Result Comment: No S almonella or Shigella recovered. Performed By: #### O BSCRN #### [facility] [address] [address] [address] Kelsie Pires Result Comment: No C ampylobacter species isolated. Salmonella/Shigella Screen Final report Normal [facility] Comment on above: Performed By: #### O BSCRN #### [facility] [address] [address] [address] Kelsie Pires AMYLASEon 08-20-2022 Amylase [Catalytic activity/Vol] 54 U/L Normal 25-115 [facility] Comment on above: Performed By: #### A MY, CMP, LIPA #### [facility] [address] [address] [address] Kelsie Pires C. DIFF PCRon 08-20-2022 C. DIFFICILE PCR Positive Critically abnormal NEGATIVE [facility] Comment on above: Performed By: #### C DIFPOC #### [facility] [address] [place] [address] Dr. Kelsie Pires CBC AUTO DIFFon 08-20-2022 BASO # 0.0 103/ul Normal 0.0-0.1 [facility] Comment on above: Performed By: #### C BC #### [facility] [address] [place] [address] Dr. Kelsie Pires Basophils/100 WBC (Bld) 0.7 % Normal 0.2-2.0 [facility] Comment on above: Performed By: #### C BC #### [facility] [address] [place] [address] Dr. Kelsie Pires EO # 0.1 103/ul Normal 0.0-0.7 [facility] Comment on above: Performed By: #### C BC #### [facility] [address] [place] [address] Dr. Kelsie Pires Eosinophils/100 WBC (Bld) 1.2 % Normal 0.9-7.0 [facility] Comment on above: Performed By: #### C BC #### [facility] [address] [place] [address] Dr. Kelsie Pires Erythrocyte distribution width (RBC) [Ratio] 12.0 % Normal 11.0-15.0 [facility] Comment on above: Performed By: #### C BC #### [facility] [address] [place] [address] Dr. Kelsie Pires Hematocrit (Bld) [Volume fraction] 41.7 % Critically low 42.0-54.0 [facility] Comment on above: Performed By: #### C BC #### [facility] [address] [place] [address] Dr. Kelsie Pires Hemoglobin (Bld) [Mass/Vol] 14.4 g/dL Normal 14.0-18.0 [facility] Comment on above: Performed By: #### C BC #### [facility] [address] [place] [address] Dr. Kelsie Pires IG # 0.01 10e3/ul Normal 0.00-0.03 [facility] Comment on above: Performed By: #### C BC #### [facility] [address] [place] [address] Dr. Kelsie Pires IG % 0.2 % Normal 0.0-0.5 [facility] Comment on above: Performed By: #### C BC #### [facility] [address] [place] [address] Dr. Kelsie Pires LYMPH # 1.7 103/ul Normal 1.2-3.8 [facility] Comment on above: Performed By: #### C BC #### [facility] [address] [place] [address] Dr. Kelsie Pires Lymphocytes/100 WBC (Bld) 29.4 % Normal 20.5-60.0 [facility] Comment on above: Performed By: #### C BC #### [facility] [address] [place] [address] Dr. Kelsie Pires MANUAL DIFF REQ NO Normal [facility] Comment on above: Performed By: #### C BC #### [facility] [address] [place] [address] Dr. Kelsie Pires MCH (RBC) [Entitic mass] 30.8 pg Normal 25.9-34.0 [facility] Comment on above: Performed By: #### C BC #### [facility] [address] [place] [address] Dr. Kelsie Pires MCHC (RBC) [Mass/Vol] 34.5 g/dL Normal 29.9-35.2 [facility] Comment on above: Performed By: #### C BC #### [facility] [address] [place] [address] Dr. Kelsie Piers MCV (RBC) [Entitic vol] 89.3 fL Normal 80.0-94.0 [facility] Comment on above: Performed By: #### C BC #### [facility] [address] [place] [address] Dr. Kelsie Pires MONO # 0.5 103/ul Normal 0.3-0.8 [facility] Comment on above: Performed By: #### C BC #### [facility] [address] [address] [address] Kelsie Pires Monocytes/100 WBC (Bld) 7.8 % Normal 1.7-12.0 [facility] Comment on above: Performed By: #### C BC #### [facility] [address] [address] [address] Kelsie Pires NEUT # 3.5 103/ul Normal 1.4-6.5 [facility] Comment on above: Performed By: #### C BC #### [facility] [address] [address] [address] Kelsie Pires Neutrophils/100 WBC (Bld) 60.7 % Normal 43.0-75.0 [facility] Comment on above: Performed By: #### C BC #### [facility] [address] [place] [address] Dr. Kelsie Pires Platelet mean volume (Bld) [Entitic vol] 10.9 fL Normal 9.5-13.5 [facility] Comment on above: Performed By: #### C BC #### [facility] [address] [address] [address] Kelsie Pires PLT 222 103/ul Normal 150-450 [facility] Comment on above: Performed By: #### C BC #### [facility] [address] [place] [address] Dr. Kelsie Pires RBC 4.67 106/ul Critically low 4.70-6.10 [facility] Comment on above: Performed By: #### C BC #### [facility] [address] [address] [address] Kelsie Pires WBC 5.7 103/ul Normal 4.0-11.0 [facility] Comment on above: Performed By: #### C BC #### [facility] [address] [place] [address] Dr. Kelsie Pires LAB TESTINGon 08-20-2022 RECV HEADER SEE SCANNED REPORT IN HPF Normal [facility] Comment on above: Performed By: #### M ISC #### [facility] [address] [place] [address] Dr. Kelsie Pires REV FROM REF LAB 08/25/22 Normal [facility] Comment on above: Performed By: #### M ISC #### [facility] [address] [place] [address] Dr. Kelsie Pires SENT TO REF LAB 08/22/22 [facility] Comment on above: Performed By: #### M ISC #### [facility] [address] [place] [address] Dr. Kelsie Pires LIPASEon 08-20-2022 Lipase [Catalytic activity/Vol] 138.0 U/L Normal 73.0-393.0 [facility] Comment on above: Performed By: #### A MY, CMP, LIPA #### [facility] [address] [place] [address] Dr. Kelsie Pires OCC BLD IMMUNO SCREENon 07-31 OCCULT BLOOD Negative Normal NEGATIVE [facility] Comment on above: Performed By: #### O BSCRN #### [facility] [address] [place] [address] Dr. Kelsie Pires PROF 14(COMP METB)on 022 Albumin [Mass/Vol] 4.7 g/dL Normal 3.4-5.0 [facility] Comment on above: Performed By: #### O BSCRN #### [facility] [address] [place] [address] Dr. Kelsie Pires Albumin/Globulin [Mass ratio] 1.3 {ratio} Normal [facility] Comment on above: Performed By: #### O BSCRN #### [facility] [address] [place] [address] Dr. Kelsie Pires ALP [Catalytic activity/Vol] 56 U/L Normal 46-116 [facility] Comment on above: Performed By: #### O BSCRN #### [facility] [address] [place] [address] Dr. Kelsie Pires ALT [Catalytic activity/Vol] 29 U/L Normal 16-63 [facility] Comment on above: Performed By: #### O BSCRN #### [facility] [address] [address] [address] Kelsie Pires Anion gap [Moles/Vol] 10.6 mmol/L Normal [facility] Comment on above: Performed By: #### O BSCRN #### [facility] [address] [address] [address] Kelsie Pires AST [Catalytic activity/Vol] 17 U/L Normal 15-37 [facility] Comment on above: Performed By: #### O BSCRN #### [facility] [address] [address] [address] Kelsie Pires Bilirubin [Mass/Vol] 1.0 mg/dL Normal 0.2-1.0 [facility] Comment on above: Performed By: #### O BSCRN #### [facility] [address] [place] [address] Dr. Kelsie Pires Calcium [Mass/Vol] 9.1 mg/dL Normal 8.5-10.1 [facility] Comment on above: Performed By: #### O BSCRN #### [facility] [address] [place] [address] Dr. Kelsie Pires Chloride [Moles/Vol] 102 mmol/L Normal 98-107 [facility] Comment on above: Performed By: #### O BSCRN #### [facility] [address] [place] [address] Dr. Kelsie Pires CO2 [Moles/Vol] 29.1 mmol/L Normal 21.0-32.0 [facility] Comment on above: Performed By: #### O BSCRN #### [facility] [address] [place] [address] Dr. Kelsie Pires Creatinine [Mass/Vol] 0.97 mg/dL Normal 0.70-1.30 [facility] Comment on above: Performed By: #### O BSCRN #### [facility] [address] [place] [address] Dr. Kelsie Pires EGFR-AF BURKINAN >60 Normal >=60 [facility] Comment on above: Performed By: #### O BSCRN #### [facility] [address] [address] [address] Kelsie Pires EGFR-NON AF BURKINAN >60 Normal >=60 [facility] Comment on above: Performed By: #### O BSCRN #### [facility] [address] [address] [address] Kelsie Pires Globulin (S) [Mass/Vol] 3.4 g/dL Normal [facility] Comment on above: Performed By: #### O BSCRN #### [facility] [address] [address] [address] Kelsie Pires Glucose [Mass/Vol] 93 mg/dL Normal 74-106 [facility] Comment on above: Performed By: #### O BSCRN #### [facility] [address] [address] [address] Kelsie Pires Potassium [Moles/Vol] 3.7 mmol/L Normal 3.5-5.1 [facility] Comment on above: Performed By: #### O BSCRN #### [facility] [address] [address] [address] Kelsie Pires Protein [Mass/Vol] 8.1 g/dL Normal 6.4-8.2 [facility] Comment on above: Performed By: #### O BSCRN #### [facility] [address] [address] [address] Kelsie Pires Sodium [Moles/Vol] 138 mmol/L Normal 136-145 [facility] Comment on above: Performed By: #### O BSCRN #### [facility] [address] [address] [address] Kelsie Pires Urea nitrogen [Mass/Vol] 16.0 mg/dL Normal 7.0-18.0 [facility] Comment on above: Performed By: #### O BSCRN #### [facility] [address] [address] [address] Kelsie Pires Urea nitrogen/Creatinine [Mass ratio] 16.5 mg/mg Normal [facility] Comment on above: Performed By: #### O BSCRN #### [facility] [address] [place] [address] Dr. Kelsie Pires Physician Referralon 022 Physician Referral [id number] #[id number] Normal [facility] AMYLASEon 07-29-2022 Amylase [Catalytic activity/Vol] 45 U/L Normal 25-115 [facility] Comment on above: Performed By: #### O BSCRN #### [facility] [address] [place] [address] Dr. Kelsie Pires CBC AUTO DIFFon 07-29-2022 BASO # 0.0 103/ul Normal 0.0-0.1 [facility] Comment on above: Performed By: #### C BC #### [facility] [address] [place] [address] Dr. Kelsie Pires Basophils/100 WBC (Bld) 0.6 % Normal 0.2-2.0 [facility] Comment on above: Performed By: #### C BC #### [facility] [address] [place] [address] Dr. Kelsie Pires EO # 0.0 103/ul Normal 0.0-0.7 [facility] Comment on above: Performed By: #### C BC #### [facility] [address] [place] [address] Dr. Kelsie Pires Eosinophils/100 WBC (Bld) 0.8 % Critically low 0.9-7.0 [facility] Comment on above: Performed By: #### C BC #### [facility] [address] [place] [address] Dr. Kelsie Pires Erythrocyte distribution width (RBC) [Ratio] 12.0 % Normal 11.0-15.0 [facility] Comment on above: Performed By: #### C BC #### [facility] [address] [place] [address] Dr. Kelsie Pires Hematocrit (Bld) [Volume fraction] 42.7 % Normal 42.0-54.0 [facility] Comment on above: Performed By: #### C BC #### [facility] [address] [place] [address] Dr. Kelsie Pires Hemoglobin (Bld) [Mass/Vol] 14.6 g/dL Normal 14.0-18.0 [facility] Comment on above: Performed By: #### C BC #### [facility] [address] [place] [address] Dr. Kelsie Pires IG # 0.01 10e3/ul Normal 0.00-0.03 [facility] Comment on above: Performed By: #### C BC #### [facility] [address] [place] [address] Dr. Kelsie Pires IG % 0.2 % Normal 0.0-0.5 [facility] Comment on above: Performed By: #### C BC #### [facility] [address] [place] [address] Dr. Kelsie Pires LYMPH # 1.0 103/ul Critically low 1.2-3.8 [facility] Comment on above: Performed By: #### C BC #### [facility] [address] [place] [address] Dr. Kelsie Pires Lymphocytes/100 WBC (Bld) 20.7 % Normal 20.5-60.0 [facility] Comment on above: Performed By: #### C BC #### [facility] [address] [place] [address] Dr. Kelsie Pires MANUAL DIFF REQ NO Normal [facility] Comment on above: Performed By: #### C BC #### [facility] [address] [place] [address] Dr. Kelsie Pires MCH (RBC) [Entitic mass] 31.1 pg Normal 25.9-34.0 [facility] Comment on above: Performed By: #### C BC #### [facility] [address] [place] [address] Dr. Kelsie Pires MCHC (RBC) [Mass/Vol] 34.2 g/dL Normal 29.9-35.2 [facility] Comment on above: Performed By: #### C BC #### [facility] [address] [place] [address] Dr. Kelsie Pires MCV (RBC) [Entitic vol] 91.0 fL Normal 80.0-94.0 [facility] Comment on above: Performed By: #### C BC #### [facility] [address] [place] [address] Dr. Kelsie Pires MONO # 0.4 103/ul Normal 0.3-0.8 [facility] Comment on above: Performed By: #### C BC #### [facility] [address] [address] [address] Kelsie Pires Monocytes/100 WBC (Bld) 8.1 % Normal 1.7-12.0 [facility] Comment on above: Performed By: #### C BC #### [facility] [address] [place] [address] Dr. Kelsie Pires NEUT # 3.4 103/ul Normal 1.4-6.5 [facility] Comment on above: Performed By: #### C BC #### [facility] [address] [place] [address] Dr. Kelsie Pires Neutrophils/100 WBC (Bld) 69.6 % Normal 43.0-75.0 [facility] Comment on above: Performed By: #### C BC #### [facility] [address] [place] [address] Dr. Kelsie Pires Platelet mean volume (Bld) [Entitic vol] 11.2 fL Normal 9.5-13.5 [facility] Comment on above: Performed By: #### C BC #### [facility] [address] [place] [address] Dr. Kelsie Pires PLT 172 103/ul Normal 150-450 [facility] Comment on above: Performed By: #### C BC #### [facility] [address] [place] [address] Dr. Kelsie Pires RBC 4.69 106/ul Critically low 4.70-6.10 [facility] Comment on above: Performed By: #### C BC #### [facility] [address] [place] [address] Dr. Kelsie Pires WBC 4.8 103/ul Normal 4.0-11.0 [facility] Comment on above: Performed By: #### C BC #### [facility] [address] [address] [address] ABD/PELVIS WO CONon [...] PEDRO ANGEL Date: 2022-07-29 12:31 Normal [facility] ER URINE PROFILEon 2 Bilirubin Ql (U) Negative Normal NEGATIVE [facility] Comment on above: Performed By: #### E RUR #### [facility] [address] [address] [address] Kelsie Pires Clarity (U) CLEAR Normal CLEAR [facility] Comment on above: Performed By: #### E RUR #### [facility] [address] [address] [address] Kelsie Pires Color (U) LT. YELLOW Normal YELLOW [facility] Comment on above: Performed By: #### E RUR #### [facility] [address] [address] [address] Kelsie HART A micrscopic examination will be performed if indicated. Normal [facility] Comment on above: Performed By: #### E RUR #### [facility] [address] [address] [address] Kelsie Pires Glucose Ql (U) Negative Normal NEGATIVE [facility] Comment on above: Performed By: #### E RUR #### [facility] [address] [place] [address] Dr. Kelsie Pires Hemoglobin Ql (U) Negative Normal NEGATIVE [facility] Comment on above: Performed By: #### E RUR #### [facility] [address] [place] [address] Dr. Kelsie Pires Ketones Ql (U) Negative Normal NEGATIVE [facility] Comment on above: Performed By: #### E RUR #### [facility] [address] [place] [address] Dr. Kelsie Pires LEUKOCYTES Negative Normal NEGATIVE [facility] Comment on above: Performed By: #### E RUR #### [facility] [address] [address] [address] Kelsie Pires Nitrite Ql (U) Negative Normal NEGATIVE [facility] Comment on above: Performed By: #### E RUR #### [facility] [address] [place] [address] Dr. Kelsie Pires pH (U) 6.0 [pH] Normal 5-9 [facility] Comment on above: Performed By: #### E RUR #### [facility] [address] [place] [address] Dr. Kelsie Pires SPEC GRAVITY <=1.005 Abnormal 1.005-<=1.025 [facility] Comment on above: Performed By: #### E RUR #### [facility] [address] [place] [address] Dr. Kelsie Pires UA PROTEIN Negative Normal NEGATIVE/ TRACE [facility] Comment on above: Performed By: #### E RUR #### [facility] [address] [place] [address] Dr. Kelsie Pires UR MICRO IND NOT INDICATED Normal [facility] Comment on above: Performed By: #### E RUR #### [facility] [address] [place] [address] Dr. Kelsie Pires Urobilinogen Qn (U) 0.2 {Jaciel'U}/dL Normal 0.2 - 1. 0 [facility] Comment on above: Performed By: #### E RUR #### [facility] [address] [place] [address] Dr. Kelsie Pires LIPASEon 07-29-2022 Lipase [Catalytic activity/Vol] 75.0 U/L Normal 73.0-393.0 [facility] Comment on above: Performed By: #### O BSCRN #### [facility] [address] [place] [address] Dr. Kelsie Pires PROF 14(COMP METB)on 022 Albumin [Mass/Vol] 4.5 g/dL Normal 3.4-5.0 [facility] Comment on above: Performed By: #### O BSCRN #### [facility] [address] [place] [address] Dr. Kelsie Pires Albumin/Globulin [Mass ratio] 1.2 {ratio} Normal [facility] Comment on above: Performed By: #### O BSCRN #### [facility] [address] [place] [address] Dr. Kelsie Pires ALP [Catalytic activity/Vol] 67 U/L Normal 46-116 [facility] Comment on above: Performed By: #### O BSCRN #### [facility] [address] [place] [address] Dr. Kelsie Pires ALT [Catalytic activity/Vol] 25 U/L Normal 16-63 [facility] Comment on above: Performed By: #### O BSCRN #### [facility] [address] [place] [address] Dr. Kelsie Pires Anion gap [Moles/Vol] 11.2 mmol/L Normal [facility] Comment on above: Performed By: #### O BSCRN #### [facility] [address] [address] [address] Kelsie Pires AST [Catalytic activity/Vol] 18 U/L Normal 15-37 [facility] Comment on above: Performed By: #### O BSCRN #### [facility] [address] [address] [address] Kelsie Pires Bilirubin [Mass/Vol] 1.0 mg/dL Normal 0.2-1.0 [facility] Comment on above: Performed By: #### O BSCRN #### [facility] [address] [address] [address] Kelsie Pires Calcium [Mass/Vol] 8.8 mg/dL Normal 8.5-10.1 [facility] Comment on above: Performed By: #### O BSCRN #### [facility] [address] [place] [address] Dr. Kelsie Pires Chloride [Moles/Vol] 103 mmol/L Normal 98-107 [facility] [facility] Comment on above: Performed By: #### O BSCRN #### [facility] [address] [address] [address] Kelsie Pires CO2 [Moles/Vol] 29.8 mmol/L Normal 21.0-32.0 [facility] Comment on above: Performed By: #### O BSCRN #### [facility] [address] [place] [address] Dr. Kelsie iPres Creatinine [Mass/Vol] 0.88 mg/dL Normal 0.70-1.30 [facility] Comment on above: Performed By: #### O BSCRN #### [facility] [address] [address] [address] Kelsie Pires EGFR-AF BURKINAN >60 Normal >=60 [facility] Comment on above: Performed By: #### O BSCRN #### [facility] [address] [address] [address] Kelsie Pires EGFR-NON AF BURKINAN >60 Normal >=60 [facility] Comment on above: Performed By: #### O BSCRN #### [facility] [address] [address] [address] Kelsie Pires Globulin (S) [Mass/Vol] 3.6 g/dL Normal [facility] Comment on above: Performed By: #### O BSCRN #### [facility] [address] [address] [address] Kelsie Pires Glucose [Mass/Vol] 87 mg/dL Normal 74-106 [facility] Comment on above: Performed By: #### O BSCRN #### [facility] [address] [place] [address] Dr. Kelsie Pires Potassium [Moles/Vol] 4.0 mmol/L Normal 3.5-5.1 [facility] Comment on above: Performed By: #### O BSCRN #### [facility] [address] [place] [address] Dr. Kelsie Pires Protein [Mass/Vol] 8.1 g/dL Normal 6.4-8.2 [facility] Comment on above: Performed By: #### O BSCRN #### [facility] [address] [place] [address] Dr. Kelsie Pires Sodium [Moles/Vol] 140 mmol/L Normal 136-145 [facility] Comment on above: Performed By: #### O BSCRN #### [facility] [address] [place] [address] Dr. Kelsie Pires Urea nitrogen [Mass/Vol] 15.0 mg/dL Normal 7.0-18.0 [facility] Comment on above: Performed By: #### O BSCRN #### [facility] [address] [place] [address] Dr. Kelsie Pires Urea nitrogen/Creatinine [Mass ratio] 17.0 mg/mg Normal [facility] Comment on above: Performed By: #### O BSCRN #### [facility] [address] [place] [address] Dr. Kelsie Pires HEPATITIS C VIRUS (HCV) ERIK T PCR (NON-Mikel 07-21-2022 HCV log10 Normal [facility] Comment on above: Performed By: #### O BSCRN #### [facility] [address] [address] [address] Kelsie Pires Hepatitis C Quantitation Not detected Normal [facility] Comment on above: Performed By: #### O BSCRN #### [facility] [address] [place], [place] [address] Dr. Kelsie Pires Test Information: Comment Normal [facility] Comment on above: Result Comment: The quantitative range of this assay is 15 IU/mL to 100 million IU/mL. Performed By: #### O BSCRN #### [facility] [address] [address] [address] Kelsie Pires liver 12-16-2021 [facility] [place] [address] [place] [address] Ultrasound Report Signed Patient: Pedro Stearns Jr MR#: [id number] : 1990 Acct:[id number] Age/Sex: 31 / M ADM Date: 12/16/21 Loc: Room: Type: [facility] Attending Dr: Tara De La Rosa DO [...] Gloria Marcial M.D.12/16/2021 12:00 PM Dictation Location: [place] [address] Tech: [facility] Transcribed By: NELDA 12/16/21 1200 Dictated By: Gloria Marcial MD 12/16/21 1158 Signed By: 12/16/21 1200 Normal [facility] Complete Blood Count Auto Di ffon 11-27-2021 Basophils (Bld) [#/Vol] 0.0 10*3/uL Normal 0.0-0.2 [facility] Comment on above: Order Comment: Reaso n for Exam Hepatitis C Result Comment: PERF ORMED BY: [place] [address] PATHOLOGIST [facility] ATTENDANT MATTHWE MANZANARES M.D. Performed By: #### C MP, CBC, PT #### [address] #### HBCAB, HCV RNAQNT, HBSAG, HCV ELI #### [facility] , Basophils/100 WBC (Bld) 0.8 % Normal . [facility] Comment on above: Order Comment: Reaso n for Exam Hepatitis C Performed By: #### C MP, CBC, PT #### [address] #### HBCAB, HCV RNAQNT, HBSAG, HCV ELI #### [facility] , Eosinophils (Bld) [#/Vol] 0.1 10*3/uL Normal 0.0-0.45 [facility] Comment on above: Order Comment: Reaso n for Exam Hepatitis C Performed By: #### C MP, CBC, PT #### [facility] [address] [place] [address] #### HBCAB, HCV RNAQNT, HBSAG, HCV ELI #### [facility] , Eosinophils/100 WBC (Bld) 3.6 % Normal . [facility] Comment on above: Order Comment: Reaso n for Exam Hepatitis C Performed By: #### C MP, CBC, PT #### [address] #### HBCAB, HCV RNAQNT, HBSAG, HCV ELI #### [facility] , Erythrocyte distribution width (RBC) [Ratio] 12.9 % Normal 12.0-14.8 [facility] Comment on above: Order Comment: Reaso n for Exam Hepatitis C Performed By: #### C MP, CBC, PT #### [address] #### HBCAB, HCV RNAQNT, HBSAG, HCV ELI #### [facility] , Hematocrit (Bld) [Volume fraction] 43.1 % Normal 38.8-50.0 [facility] Comment on above: Order Comment: Reaso n for Exam Hepatitis C Performed By: #### C MP, CBC, PT #### [facility] [address] [place] [address] #### HBCAB, HCV RNAQNT, HBSAG, HCV ELI #### [facility] , Hemoglobin (Bld) [Mass/Vol] 14.5 g/dL Normal 13.0-17.0 [facility] Comment on above: Order Comment: Reaso n for Exam Hepatitis C Performed By: #### C MP, CBC, PT #### [address] #### HBCAB, HCV RNAQNT, HBSAG, HCV ELI #### [facility] , Lymphocytes (Bld) [#/Vol] 1.2 10*3/uL Normal 1.00-4.8 [facility] Comment on above: Order Comment: Reaso n for Exam Hepatitis C Performed By: #### C MP, CBC, PT #### [address] #### HBCAB, HCV RNAQNT, HBSAG, HCV ELI #### [facility] , Lymphocytes/100 WBC (Bld) 28.7 % Normal . [facility] Comment on above: Order Comment: Reaso n for Exam Hepatitis C Performed By: #### C MP, CBC, PT #### [place] [address] [place] #### HBCAB, HCV RNAQNT, HBSAG, HCV ELI #### [facility] , MCH (RBC) [Entitic mass] 30.5 pg Normal 27.5-35.2 [facility] Comment on above: Order Comment: Reaso n for Exam Hepatitis C Performed By: #### C MP, CBC, PT #### [facility] [address] [place] [address] #### HBCAB, HCV RNAQNT, HBSAG, HCV ELI #### [facility] , MCV (RBC) [Entitic vol] 90.7 fL Normal 83.5-101 [facility] Comment on above: Order Comment: Reaso n for Exam Hepatitis C Performed By: #### C MP, CBC, PT #### [facility] [address] [place] [address] #### HBCAB, HCV RNAQNT, HBSAG, HCV ELI #### [facility] , Mean Corpuscular HGB Conc 33.7 g/dL Normal 32.5-35.6 [facility] Comment on above: Order Comment: Reaso n for Exam Hepatitis C Performed By: #### C MP, CBC, PT #### [facility] [address] [place] [address] #### HBCAB, HCV RNAQNT, HBSAG, HCV ELI #### [facility] , Monocytes (Bld) [#/Vol] 0.4 10*3/uL Normal 0.0-0.8 [facility] Comment on above: Order Comment: Reaso n for Exam Hepatitis C Performed By: #### C MP, CBC, PT #### [facility] [address] [place] [address] [place] #### HBCAB, HCV RNAQNT, HBSAG, HCV ELI #### [facility] , Monocytes/100 WBC (Bld) 8.7 % Normal . [facility] Comment on above: Order Comment: Reaso n for Exam Hepatitis C Performed By: #### C MP, CBC, PT #### [facility] [address] [place] [address] #### HBCAB, HCV RNAQNT, HBSAG, HCV ELI #### [facility] , Neutrophils (Bld) [#/Vol] 2.4 10*3/uL Normal 1.8-7.7 [facility] Comment on above: Order Comment: Reaso n for Exam Hepatitis C Performed By: #### C MP, CBC, PT #### [facility] [address] [place] [address] #### HBCAB, HCV RNAQNT, HBSAG, HCV ELI #### [facility] , Neutrophils/100 WBC (Bld) 58.2 % Normal . [facility] Comment on above: Order Comment: Reaso n for Exam Hepatitis C Performed By: #### C MP, CBC, PT #### [address] #### HBCAB, HCV RNAQNT, HBSAG, HCV ELI #### [facility] , Nucleated RBC/100 WBC (Bld) [Ratio] 0.0 % Normal 0-0.5 [facility] Comment on above: Order Comment: Reaso n for Exam Hepatitis C Performed By: #### C MP, CBC, PT #### [address] #### HBCAB, HCV RNAQNT, HBSAG, HCV ELI #### [facility] , Platelet mean volume (Bld) [Entitic vol] 9.0 fL Normal 6.6-10.1 [facility] Comment on above: Order Comment: Reaso n for Exam Hepatitis C Performed By: #### C MP, CBC, PT #### [facility] [address] [place] [address] #### HBCAB, HCV RNAQNT, HBSAG, HCV ELI #### [facility] , Platelets (Bld) [#/Vol] 186 10*3/uL Normal 150-450 [facility] Comment on above: Order Comment: Reaso n for Exam Hepatitis C Performed By: #### C MP, CBC, PT #### [facility] [address] [place] [address] #### HBCAB, HCV RNAQNT, HBSAG, HCV ELI #### [facility] , RBC (Bld) [#/Vol] 4.76 10*6/uL Normal 3.90-5.60 [facility] Comment on above: Order Comment: Reaso n for Exam Hepatitis C Performed By: #### C MP, CBC, PT #### [address] #### HBCAB, HCV RNAQNT, HBSAG, HCV ELI #### [facility] , WBC (Bld) [#/Vol] 4.2 10*3/uL Low 4.5-11.0 [facility] Comment on above: Order Comment: Reaso n for Exam Hepatitis C Performed By: #### C MP, CBC, PT #### [address] #### HBCAB, HCV RNAQNT, HBSAG, HCV ELI #### [facility] , Comprehensive Metabolic Pane samaria 11-27-2021 Albumin [Mass/Vol] 4.2 g/dL Normal 3.2-5.5 [facility] Comment on above: Order Comment: Reaso n for Exam Hepatitis C Performed By: #### C MP, CBC, PT #### [facility] [address] [place] [address] [place] #### HBCAB, HCV RNAQNT, HBSAG, HCV ELI #### [facility] , Albumin/Globulin [Mass ratio] 1.3 {ratio} Normal [facility] Comment on above: Order Comment: Reaso n for Exam Hepatitis C Performed By: #### C MP, CBC, PT #### [facility] [address] [place] [address] [place] #### HBCAB, HCV RNAQNT, HBSAG, HCV ELI #### [facility] , ALP [Catalytic activity/Vol] 52 U/L Normal 32-92 [facility] Comment on above: Order Comment: Reaso n for Exam Hepatitis C Result Comment: PERF ORMED BY: [place] [address] PATHOLOGIST [facility] ATTENDANT MATTHEW MANZANARES M.D. Performed By: #### C MP, CBC, PT #### [facility] [address] [place] [address] #### HBCAB, HCV RNAQNT, HBSAG, HCV ELI #### [facility] , ALT [Catalytic activity/Vol] 81 U/L High 10-60 [facility] Comment on above: Order Comment: Reaso n for Exam Hepatitis C Performed By: #### C MP, CBC, PT #### [facility] [address] [place] [address] #### HBCAB, HCV RNAQNT, HBSAG, HCV ELI #### [facility] , AST [Catalytic activity/Vol] 39 U/L Normal 10-42 [facility] Comment on above: Order Comment: Reaso n for Exam Hepatitis C Performed By: #### C MP, CBC, PT #### [facility] [address] [place] [address] #### HBCAB, HCV RNAQNT, HBSAG, HCV ELI #### [facility] , Bilirubin [Mass/Vol] 0.9 mg/dL Normal 0.3-1.2 [facility] Comment on above: Order Comment: Reaso n for Exam Hepatitis C Performed By: #### C MP, CBC, PT #### [facility] [address] [place] [address] [place] #### HBCAB, HCV RNAQNT, HBSAG, HCV ELI #### [facility] , Calcium [Mass/Vol] 9.3 mg/dL Normal 8.2-10.2 [facility] Comment on above: Order Comment: Reaso n for Exam Hepatitis C Performed By: #### C MP, CBC, PT #### [facility] [address] [place] [address] [place] #### HBCAB, HCV RNAQNT, HBSAG, HCV ELI #### [facility] , Chloride [Moles/Vol] 102 mmol/L Normal 95-114 [facility] Comment on above: Order Comment: Reaso n for Exam Hepatitis C Performed By: #### C MP, CBC, PT #### [facility] [address] [place] [address] [place] #### HBCAB, HCV RNAQNT, HBSAG, HCV ELI #### [facility] , CO2 [Moles/Vol] 26.8 mmol/L Normal 22.0-30.0 [facility] Comment on above: Order Comment: Reaso n for Exam Hepatitis C Performed By: #### C MP, CBC, PT #### [facility] [address] [place] [address] #### HBCAB, HCV RNAQNT, HBSAG, HCV ELI #### [facility] , Creatinine [Mass/Vol] 0.82 mg/dL Normal 0.64-1.27 [facility] Comment on above: Order Comment: Reaso n for Exam Hepatitis C Performed By: #### C MP, CBC, PT #### [facility] [address] [place] [address] #### HBCAB, HCV RNAQNT, HBSAG, HCV ELI #### [facility] , Estimated GFR ( [place] > 60 [facility] Comment on above: Order Comment: Reaso n for Exam Hepatitis C Result Comment: GFR estimated reference range: According to KDOQI guidelines, <60 ml/min/1.73m2 is sufficient to diagnose a patient with chronic kidney disease. Performed By: #### C MP, CBC, PT #### [facility] [address] [place] [address] [place] #### HBCAB, HCV RNAQNT, HBSAG, HCV ELI #### [facility] , Estimated GFR (Non- Am > 60 Normal [facility] Comment on above: Order Comment: Reaso n for Exam Hepatitis C Performed By: #### C MP, CBC, PT #### [facility] [address] [place] [address] #### HBCAB, HCV RNAQNT, HBSAG, HCV ELI #### [facility] , Globulin (S) [Mass/Vol] 3.3 g/dL Normal [facility] Comment on above: Order Comment: Reaso n for Exam Hepatitis C Performed By: #### C MP, CBC, PT #### [facility] [address] [place] [address] #### HBCAB, HCV RNAQNT, HBSAG, HCV ELI #### [facility] , Glucose [Mass/Vol] 92 mg/dL Normal 70-100 [facility] Comment on above: Order Comment: Reaso n for Exam Hepatitis C Result Comment: [facility] Glucose Reference Range is dependent on time and content of last meal. Glucose of more than 200 mg/dL in a nonstressed, ambulatory subject supports the diagnosis of Diabetes Mellitus. ADA recommended reference range Performed By: #### C MP, CBC, PT #### [facility] [address] [place] [address] #### HBCAB, HCV RNAQNT, HBSAG, HCV ELI #### [facility] , Potassium [Moles/Vol] 3.8 mmol/L Normal 3.5-5.1 [facility] Comment on above: Order Comment: Reaso n for Exam Hepatitis C Performed By: #### C MP, CBC, PT #### [facility] [address] [place] [address] [place] #### HBCAB, HCV RNAQNT, HBSAG, HCV ELI #### [facility] , Protein [Mass/Vol] 7.5 g/dL Normal 6.1-7.9 [facility] Comment on above: Order Comment: Reaso n for Exam Hepatitis C Performed By: #### C MP, CBC, PT #### [facility] [address] [place] [address] #### HBCAB, HCV RNAQNT, HBSAG, HCV ELI #### [facility] , Sodium [Moles/Vol] 137 mmol/L Normal 136-146 [facility] Comment on above: Order Comment: Reaso n for Exam Hepatitis C Performed By: #### C MP, CBC, PT #### [facility] [address] [place] [address] #### HBCAB, HCV RNAQNT, HBSAG, HCV ELI #### [facility] , Urea nitrogen [Mass/Vol] 11 mg/dL Normal 9-23 [facility] Comment on above: Order Comment: Reaso n for Exam Hepatitis C Performed By: #### C MP, CBC, PT #### [address] #### HBCAB, HCV RNAQNT, HBSAG, HCV ELI #### [facility] , Hep C Genotyping Non Reflexo n 11-27-2021 Hepatitis C Genotype 1a Normal . [facility] Comment on above: Order Comment: Reaso n for Exam Hepatitis C Performed By: #### C MP, CBC, PT #### [facility] [address] [place] [address] #### HBCAB, HCV RNAQNT, HBSAG, HCV ELI #### [facility] , Please Note: Normal . [facility] Comment on above: Order Comment: [...] as investigational or for research. Performed at: [address] [id number] Wire Spinner: Vida Beltran MD, Phone: [phone] PERFORMED BY: [place] [address] PATHOLOGIST [facility] ATTENDANT MATTHEW MANZANARES M.D. Performed By: #### C MP, CBC, PT #### [address] #### HBCAB, HCV RNAQNT, HBSAG, HCV ELI #### [facility] , Hep C RT-PCR, Qnt (Non-Graph )on 11-27-2021 HCV Log10 6.760 Normal . [facility] Comment on above: Order Comment: Reaso n for Exam Hepatitis C Result Comment: Resu lt Units: log10 IU/mL Performed By: #### C MP, CBC, PT #### [address] #### HBCAB, HCV RNAQNT, HBSAG, HCV ELI #### [facility] , Hepatitis C Quantitation [id number] Normal . [facility] Comment on above: Order Comment: Reaso n for Exam Hepatitis C Performed By: #### C MP, CBC, PT #### [address] #### HBCAB, HCV RNAQNT, HBSAG, HCV LEI #### [facility] , Test Information: Normal . [facility] Comment on above: Order Comment: Reaso n for Exam Hepatitis C Result Comment: The quantitative range of this assay is 15 IU/mL to 100 million IU/mL. Performed at: - [facility] [id number] Wire Spinner: Vida Beltran MD, Phone: [phone] Performed By: #### C MP, CBC, PT #### [address] #### HBCAB, HCV RNAQNT, HBSAG, HCV ELI #### [facility] , Hepatitis B Core Antibodyon 11-27-2021 Hepatitis B Core Antibody Negative Normal Negative [facility] Comment on above: Order Comment: Reaso n for Exam Hepatitis C Result Comment: Perf ormed at: - [facility] [place] [address] [place], [place] [id number] Wire Spinner: Supa Edwards PhD, Phone: [phone] Performed By: #### C MP, CBC, PT #### [address] #### HBCAB, HCV RNAQNT, HBSAG, HCV ELI #### [facility] , Hepatitis B Surface Antigeno n 11-27-2021 HBsAg Screen Negative Normal Negative [facility] Comment on above: Order Comment: Reaso n for Exam Hepatitis C Performed By: #### C MP, CBC, PT #### [address] #### HBCAB, HCV RNAQNT, HBSAG, HCV ELI #### [facility] , Prothrombin Time INRon 11-27 INR Coag (PPP) [Relative time] 1.1 {INR} Normal [facility] Comment on above: Order Comment: [...] heart valves: 3 - 4.5 PERFORMED BY: [place] [address] PATHOLOGIST [facility] ATTENDANT MATTHEW MANZANARES M.D. Performed By: #### C MP, CBC, PT #### [place] [address] [place] #### HBCAB, HCV RNAQNT, HBSAG, HCV ELI #### [facility] , PT Coag (PPP) [Time] 12.8 s Normal 9.0-12.9 [facility] Comment on above: Order Comment: Reaso n for Exam Hepatitis C Performed By: #### C MP, CBC, PT #### [facility] [address] [place] [address] [facility] #### HBCAB, HCV RNAQNT, HBSAG, HCV ELI #### [facility] , Cult,Urine,CCon 01-30-2018 Cult,Urine,CC Specimen Description .CLEAN CATCH URINE Performed at [address] [address] Special Requests NOT REPORTEDCulture NO GROWTH Performed at [id number] [place] [address] Report Status FINAL 01/30/[address] [facility] Comment on above: Performed By: #### C SABAS ####[address] [id number] [address] CBC with Diffon 01-29-2018 Abs. Basophil 0.10 k/uL Normal 0.0-0.[address] [facility] Comment on above: Result Comment: Perf ormed at [address] [address] Performed By: #### C DP, CP, LIP, MG, EDTOX ####[address] [address] Abs.Neutrophil (Seg) 4.00 k/uL Normal 1.3-9.1 [facility] Comment on above: Performed By: #### C DP, CP, LIP, MG, EDTOX ####[address] [address] Basophils/100 WBC Auto (Bld) 1 % Normal 0-[address] [facility] Comment on above: Performed By: #### C DP, CP, LIP, MG, EDTOX ####[address] [address] Eosinophils 0.30 10*3/uL Normal 0.0-0.[address] [facility] Comment on above: Performed By: #### C DP, CP, LIP, MG, EDTOX ####[place] [address] [place] [address] Eosinophils/100 leukocytes 4 % Normal 0-[address] [facility] Comment on above: Performed By: #### C DP, CP, LIP, MG, EDTOX ####[place] [address] [place] [address] Erythrocyte distribution width Auto Ratio (RBC) 13.0 % Normal 11.5-14.[address] [facility] Comment on above: Performed By: #### C DP, CP, LIP, MG, EDTOX ####[place] [address] [place] [address] Erythrocytes (RBC) 4.75 10*6/uL Normal 4.5-5.9 [facility] Comment on above: Performed By: #### C DP, CP, LIP, MG, EDTOX ####[place] [address] [place] [address] Hematocrit (HCT) 43.4 % Normal 41-53 [facility] Comment on above: Performed By: #### C DP, CP, LIP, MG, EDTOX ####[facility] [place] [address] Hemoglobin mass conc (Bld) 14.5 g/dL Normal 13.5-17.[address] [facility] Comment on above: Performed By: #### C DP, CP, LIP, MG, EDTOX ####[place] [address] [place] [address] Lymphocytes 1.40 10*3/uL Normal 1.0-4.[address] [facility] Comment on above: Performed By: #### C DP, CP, LIP, MG, EDTOX ####[place] [address] [place] [address] Lymphocytes/100 leukocytes 23 % Low 24-[address] [facility] Comment on above: Performed By: #### C DP, CP, LIP, MG, EDTOX ####[place] [address] [place] [address] MCH 30.6 pg Normal 26-[address] [facility] Comment on above: Performed By: #### C DP, CP, LIP, MG, EDTOX ####[address] [place] [address] MCHC mass conc (RBC) 33.5 g/dL Normal 31-37 [facility] Comment on above: Performed By: #### C DP, CP, LIP, MG, EDTOX ####[address] [place] [address] MCV 91.3 fL Normal 80-[address] [facility] Comment on above: Performed By: #### C DP, CP, LIP, MG, EDTOX ####[address] [place] [address] Monocytes 0.50 10*3/uL Normal 0.1-1.[address] [facility] Comment on above: Performed By: #### C DP, CP, LIP, MG, EDTOX ####[address] [place] [address] Monocytes/100 leukocytes 8 % High 1-[address] [facility] Comment on above: Performed By: #### C DP, CP, LIP, MG, EDTOX ####[address] [place] [address] Neutrophil (Seg) 64 % Normal 36-66 [facility] Comment on above: Performed By: #### C DP, CP, LIP, MG, EDTOX ####[address] [place] [address] Platelet mean volume (PMV) 9.4 fL Normal 6.0-12.[address] [facility] Comment on above: Performed By: #### C DP, CP, LIP, MG, EDTOX ####[address] [place] [address] Platelets 185 10*3/uL Normal 150-[address] [facility] Comment on above: Performed By: #### C DP, CP, LIP, MG, EDTOX ####[address] [address] WBC (Leukocytes) 6.3 10*3/uL Normal 3.5-11.0 [facility] Comment on above: Performed By: #### C DP, CP, LIP, MG, EDTOX ####[address] [address] Auto Diff Performed NOT REPORTED Normal [facility] Comment on above: Performed By: #### C DP, CP, LIP, MG, EDTOX ####[address] [place] [address] Erythrocyte morphology NOT REPORTED Normal [facility] Comment on above: Performed By: #### C DP, CP, LIP, MG, EDTOX ####[address] [place] [address] Erythrocytes (RBC) NOT REPORTED Normal [facility] Comment on above: Performed By: #### C DP, CP, LIP, MG, EDTOX ####[address] [address] Granulocytes/100 WBC (Bld) NOT REPORTED Normal 0.00-0.[address] [facility] Comment on above: Performed By: #### C DP, CP, LIP, MG, EDTOX ####[facility] [place] [address] Immature granulocytes #/vol (Bld) NOT REPORTED Normal [address] [facility] Comment on above: Performed By: #### C DP, CP, LIP, MG, EDTOX ####[facility] [facility] [place] [address] Platelets NOT REPORTED Normal [facility] Comment on above: Performed By: #### C DP, CP, LIP, MG, EDTOX ####[address] [facility] [place] [address] WBC Morphology NOT REPORTED Normal [facility] Comment on above: Performed By: #### C DP, CP, LIP, MG, EDTOX ####[place] [address] [facility] [place] [address] Comp Metabolic Profon 2017 (cont.) Normal [facility] Comment on above: Result Comment: Aver age GFR for 20-29 years old: 116 mL/min/1.73sq mChronic Kidney Disease: <60 mL/min/1.73sq mKidney failure: <15 mL/min/1.73sq meGFR calculated using average adult body mass. Additional eGFR calculator available at:http://[email or web address]_crcl_2012.htmPerformed at [facility] [address] [facility] [place] [address] Performed By: #### C DP, CP, LIP, MG, EDTOX ####[facility] [facility] [place] [address] Alanine aminotransferase (ALT) 111 U/L High 5-[address] [facility] Comment on above: Performed By: #### C DP, CP, LIP, MG, EDTOX ####[facility] [place] [address] Albumin 4.8 g/dL Normal 3.5-5.[address] [facility] Comment on above: Performed By: #### C DP, CP, LIP, MG, EDTOX ####[facility] [place] [address] Alkaline Phos 62 U/L Normal 40-[address] [facility] Comment on above: Performed By: #### C DP, CP, LIP, MG, EDTOX ####[facility] [place], [place] [address] [place] [address] Anion gap 14 mmol/L Normal 9-[address] [facility] Comment on above: Performed By: #### C DP, CP, LIP, MG, EDTOX ####[address] [place] [address] Aspartate aminotransferase (AST) 55 U/L High <[address] [facility] Comment on above: Performed By: #### C DP, CP, LIP, MG, EDTOX ####[facility] [place], [place] [address]e [facility] [place] [address] Bilirubin Ql (U) 1.02 mg/dL Normal 0.3-1.2 [facility] Comment on above: Performed By: #### C DP, CP, LIP, MG, EDTOX ####[address] [place] [address] Calcium 9.4 mg/dL Normal 8.6-10.[address] [facility] Comment on above: Performed By: #### C DP, CP, LIP, MG, EDTOX ####[address] [place] [address] Chloride 101 mmol/L Normal 98-[address] [facility] Comment on above: Performed By: #### C DP, CP, LIP, MG, EDTOX ####[address] [place] [address] CO2 24 mmol/L Normal 20-[address] [facility] Comment on above: Performed By: #### C DP, CP, LIP, MG, EDTOX ####[facility] [place] [address] Creatinine 0.86 mg/dL Normal 0.70-1.[address] [facility] Comment on above: Performed By: #### C DP, CP, LIP, MG, EDTOX ####[facility] [place] [address] eGFR (non-black) mL/min/{1.73_m2} Normal >60 [facility] Comment on above: Performed By: #### C DP, CP, LIP, MG, EDTOX ####[facility] [place], [place] [address] [place] [address] Glucose mass conc 103 mg/dL High 70-99 [facility] Comment on above: Performed By: #### C DP, CP, LIP, MG, EDTOX ####[facility] [place], [place] [address] [facility] [place] [address] Potassium molar conc 4.3 mmol/L Normal 3.7-5.3 [facility] Comment on above: Performed By: #### C DP, CP, LIP, MG, EDTOX ####[facility] [place], [place] [address] [address] Protein 8.1 g/dL Normal 6.4-8.[address] [facility] Comment on above: Performed By: #### C DP, CP, LIP, MG, EDTOX ####[place] [address] [place] [address] Sodium 139 mmol/L Normal 135-[address] [facility] Comment on above: Performed By: #### C DP, CP, LIP, MG, EDTOX ####[facility] [facility] [place] [address] Urea nitrogen 12 mg/dL Normal 6-[address] [facility] Comment on above: Performed By: #### C DP, CP, LIP, MG, EDTOX ####[facility] [place] [address].[place] [address] Albumin/Globulin Ratio NOT REPORTED Normal 1.0-2.[address] [facility] Comment on above: Performed By: #### C DP, CP, LIP, MG, EDTOX ####[address] [place] [address] BUN/CRE Ratio NOT REPORTED Normal 9-[address] [facility] Comment on above: Performed By: #### C DP, CP, LIP, MG, EDTOX ####[address] [place] [address] Staging: NOT REPORTED Normal [facility] Comment on above: Performed By: #### C DP, CP, LIP, MG, EDTOX ####[address] [address] Drug Scr, Abuse, Uron 2017 Amphetamine(s),Ur Negative Normal NEG [facility] Comment on above: Result Comment: (Pos itive cutoff 1000 ng/mL) Performed By: #### U AX, UMICAO, LATISHA, UTAD ####[address] [address] Barbiturate(s),Ur Negative Normal NEG [facility] Comment on above: Result Comment: (Pos itive cutoff 200 ng/mL) Performed By: #### U AX, UMICAO, LATISHA, UTAD ####[address] [address] Base excess Negative Normal NEG [facility] Comment on above: Result Comment: (Pos itive cutoff 300 ng/mL) Performed By: #### U AX, UMICAO, LATISHA, UTAD ####[place] [address] [place] [address] Benzodiazepine(s) Negative Normal NEG [facility] Comment on above: Result Comment: (Pos itive cutoff 200 ng/mL) Performed By: #### U AX, UMICAO, LATISHA, UTAD ####[facility] [place] [address] Cannabinoid(s),Ur Positive Abnormal NEG [facility] Comment on above: Result Comment: (Pos itive cutoff 50 ng/mL) Performed By: #### U AX, UMICAO, LATISHA, UTAD ####[address] [address] Interpretive Info Assay provides medical screening only. The absence of expected drug(s) and/or Normal [facility] Comment on above: Result Comment: meta bolite(s) may indicate diluted or adulterated urine, limitations of testing or timing of collection.Testing for legal purposes should be confirmed by another method. To request confirmation of test result, please call the lab within 7 days of sample submission.Performed at [facility] [address] [place] [address] Performed By: #### U AX, UMICAO, LATISHA, UTAD ####[facility] [place] [address] Opiate(s), Ur Negative Normal NEG [facility] Comment on above: Result Comment: (Pos itive cutoff 300 ng/mL) Performed By: #### U AX, UMICAO, LATISHA, UTAD ####[address] [address] Oxycodone, Urine Negative Normal NEG [facility] Comment on above: Result Comment: (Pos itive cutoff 100 ng/mL) Performed By: #### U AX, UMICAO, LATISHA, UTAD ####[address] [address] Phencyclidine, Ur Negative Normal NEG [facility] Comment on above: Result Comment: (Pos itive cutoff 25 ng/mL) Performed By: #### U AX, UMICAO, LATISHA, UTAD ####[address] [address] Urine, methadone presence Negative Normal NEG [facility] Comment on above: Result Comment: (Pos itive cutoff 300 ng/mL) Performed By: #### U AX, UMICAO, LATISHA, UTAD ####[address] [address] Buprenorphrine, Ur NOT REPORTED Normal NEG [facility] Comment on above: Performed By: #### U AX, UMICAO, LATISHA, UTAD ####[address] [address] MDMA, Urine NOT REPORTED Normal NEG [facility] Comment on above: Performed By: #### U AX, UMICAO, LATISHA, UTAD ####[address] [address] Methamphetamine, Ur NOT REPORTED Normal NEG [facility] Comment on above: Performed By: #### U AX, UMICAO, LATISHA, UTAD ####[address] [address] Propoxyphene,Urine NOT REPORTED Normal NEG [facility] Comment on above: Performed By: #### U AX, UMICAO, LATISHA, UTAD ####[address] [address] Urine, tricyclic antidepressants NOT REPORTED Normal NEG [facility] Comment on above: Performed By: #### U AX, MATIAS, LATISHA, UTAD ####[place] [address] [place] [address] Lipaseon 01-29-2018 Lipase 21 U/L Normal 13-[address] [facility] Comment on above: Result Comment: Perf ormed at [facility] [address] [facility] [place] [address] Performed By: #### C DP, CP, LIP, MG, EDTOX ####[facility] [place], [place] [address] [address] Magnesiumon 01-29-2018 Magnesium 2.5 mg/dL Normal 1.6-2.[address] [facility] Comment on above: Result Comment: Perf ormed at [place] [address] [facility] [place] [address] Performed By: #### C DP, CP, LIP, MG, EDTOX ####[address] [place] [address] Tox Scr, Bld, EDon 8 Acetaminophen mass conc <10 Low 10-[address] [facility] Comment on above: Result Comment: Perf ormed at [facility] [address] [facility] [place] [address] Performed By: #### C DP, CP, LIP, MG, EDTOX ####[facility] [place], [place] [address] [address] Salicylate <1 Low 3-[address] [facility] Comment on above: Performed By: #### C DP, CP, LIP, MG, EDTOX ####[address] [place] [address] Ethanol mg/dL Normal <[address] [facility] Comment on above: Performed By: #### C DP, CP, LIP, MG, EDTOX ####[address] [address] Ethanol percent <0.[address] [facility] Comment on above: Performed By: #### C DP, CP, LIP, MG, EDTOX ####[address] [address] UA w/Reflex Cultureon 2017 Acetaminophen mass conc Negative Normal NEG [facility] Comment on above: Performed By: #### U AX, UMICAO, LATISHA, UTAD ####[address] [address] Bilirubin (direct) Negative Normal NEG [facility] Comment on above: Performed By: #### U AX, UMICAO, LATISHA, UTAD ####[address] [address] Hemoglobin mass conc (Bld) TRACE Abnormal NEG [facility] Comment on above: Performed By: #### U AX, UMICAO, LATISHA, UTAD ####[address] [address] Nitrite,Ur Negative Normal NEG [facility] Comment on above: Performed By: #### U AX, UMICAO, LATISHA, UTAD ####[address] [address] Turbidity CLEAR Normal CLEAR [facility] Comment on above: Performed By: #### U AX, UMICAO, LATISHA, UTAD ####[address] [address] Urine, color YELLOW Normal YEL [facility] Comment on above: Performed By: #### U AX, UMICAO, LATISHA, UTAD ####[address] [place] [address] Urine, glucose presence Negative Normal NEG [facility] Comment on above: Performed By: #### U AX, UMICAO, LATISHA, UTAD ####[address] [place] [address] Urine, leukocyte esterase presence TRACE Abnormal NEG [facility] Comment on above: Result Comment: Perf ormed at [facility] [address] [place] [address] Performed By: #### U AX, UMICAO, LATISHA, UTAD ####[address] [place] [address] Urine, pH 5.5 [pH] Normal 5.0-8.[address] [facility] Comment on above: Performed By: #### U AX, UMMODESTOO, LATISHA, UTAD ####[address] [place] [address] Urine, protein presence Negative Normal NEG [facility] Comment on above: Performed By: #### U AX, UMICAO, LATISHA, UTAD ####[address] [place] [address] Urine, specific gravity 1.010 Normal 1.000-1.[address] [facility] Comment on above: Performed By: #### U AX, UMICAO, LATISHA, UTAD ####[address] [place] [address] Urobilinogen,Ur Normal Normal NORM [facility] Comment on above: Performed By: #### U AX, UMICAO, LATISHA, UTAD ####[address] [place] [address] Comment NOT REPORTED Normal [facility] Comment on above: Performed By: #### U AX, UMICAO, LATISHA, UTAD ####[address] [facility] [place] [address] Ur.Tricyclic Antidepon 01-29 Ur.Tricyclic Antidep Negative Normal NEG [facility] Comment on above: Result Comment: (Pos itive cutoff 1000 ng/mL)Assay provides rapid clinical screening only. Presumptive positive results for legal purposes should be confirmed by another method. To request confirmation, please call the lab within 7 days of sample submission.Performed at [address] [address] Performed By: #### U AX, UMICAO, LATISHA, UTAD ####[address] [address] Urinalysis,Microon 8 ----- Normal [facility] Comment on above: Performed By: #### U AX, UMICAO, LATISHA, UTAD ####[address] [address] Urine WBC's 10 TO [address] [facility] Comment on above: Performed By: #### U AX, UMICAO, LATISHA, UTAD ####[address] [address] Urine, bacteria in sediment FEW Abnormal NONE [facility] Comment on above: Result Comment: Perf ormed at [address] [address] Performed By: #### U AX, UMICAO, LATISHA, UTAD ####[address] [address] Urine, epithelial cells in sediment 0 TO [address] [facility] Comment on above: Performed By: #### U AX, UMICAO, LATISHA, UTAD ####[address] [address] Urine, erythrocytes 2 TO [address] [facility] Comment on above: Performed By: #### U AX, UMICAO, LATISHA, UTAD ####[facility] [place] [address] Epithelial, Renal NOT REPORTED Normal [address] [facility] Comment on above: Performed By: #### U AX, UMICAO, LATISHA, UTAD ####[address] [address] Mucus Strands NOT REPORTED Normal NONE [facility] Comment on above: Performed By: #### U AX, UMICAO, LATISHA, UTAD ####[address] [address] Other Observations NOT REPORTED Normal NREQ [facility] Comment on above: Performed By: #### U AX, UMICAO, LATISHA, UTAD ####[address] [address] Trichomonas NOT REPORTED Normal NONE [facility] Comment on above: Performed By: #### U AX, UMICAO, LATISHA, UTAD ####[address] [address] Urine, amorphous sediment presence in sediment NOT REPORTED Normal NONE [facility] Comment on above: Performed By: #### U AX, UMICAO, LATISHA, UTAD ####[address] [place] [address] Urine, casts in sediment NOT REPORTED Normal [facility] Comment on above: Performed By: #### U AX, UMICAO, LATISHA, UTAD ####[address] [place] [address] Urine, crystals in sediment NOT REPORTED Normal NONE [facility] Comment on above: Performed By: #### U AX, UMICAO, LATISHA, UTAD ####[facility] [facility] [place] [address] Urine, yeast presence in sediment NOT REPORTED Normal NONE [facility] Comment on above: Performed By: #### U AX, UMICAO, LATISHA, UTAD ####[facility] [facility] [place] [address] Vital Signs Date Time Vital Sign Value Performing Clinician Facility 01-15-2025 10:47-0500 Blood Pressure Location MILAGRO NKANSAH-AMANKRA [facility] 01-15-2025 10:47-0500 Diastolic blood pressure 92 mm[Hg] MILAGRO NKANSAH-AMANKRA [facility] 01-15-2025 10:47-0500 Heart rate 87 /min MILAGRO NKANSAH-AMANKRA [facility] 01-15-2025 10:47-0500 Respiratory rate 19 /min MILAGRO NKANSAH-AMANKRA [facility] 01-15-2025 10:47-0500 Systolic blood pressure 134 mm[Hg] MILAGRO NKANSAH-AMANKRA [facility] 11-03-2022 11:30-0500 Body height 170.18 cm Juan Manuel Ruffin Other [facility] Other 11-03-2022 11:30-0500 Body mass index (BMI) [Ratio] 24.27 kg/m2 Juan Manuel Ruffin Other [facility] Other 11-03-2022 11:30-0500 Body weight 70.31 kg Juan Manuel Ruffin Other [facility] Other 11-03-2022 11:30-0500 Diastolic blood pressure 80 mm[Hg] Juan Manuel Ruffin Other [facility] Other 11-03-2022 11:30-0500 Systolic blood pressure 120 mm[Hg] Juan Manuel Ruffin Other [facility] Other 11-13-2021 11:00-0500 Body height 170.18 cm Tara Calvinchris Other [facility] Other 11-13-2021 11:00-0500 Body mass index (BMI) [Ratio] 24.9 kg/m2 Tara Calvinchris Other [facility] Other 11-13-2021 11:00-0500 Body weight 72.12 kg Tara Calvinchris Other [facility] Other 09-19-2021 15:45-0400 Body height 170.18 cm Leticia Negrete Other [facility] Other 09-19-2021 15:45-0400 Body mass index (BMI) [Ratio] 25.84 kg/m2 Leticia Zaratemond Other [facility] Other 09-19-2021 15:45-0400 Body weight 74.84 kg Leticia Penelope Other [facility] Other Encounters Encounter Date Encounter Type Care Provider Facility Start: 01-15-2025 End: 01-15-2025 [facility] Facility:[facility] Castan[facility]e Start: 01-15-2025 End: 01-15-2025 Patient encounter procedure MILAGRO ESCALANTE [facility] Start: 11-24-2024 ambulatory MILAGRO ESCALANTE Facility:[facility]OL[facility] Tariq Start: 11-03-2022 End: 11-03-2022 ambulatory Juan Manuel Ruffin Other [facility] Other Start: 11-03-2022 Patient encounter procedure Juan Manuel Ruffin [facility] Start: 08-27-2022 End: 08-27-2022 ambulatory Tara Hamilton Other [facility] Other Start: 08-27-2022 Telephone encounter Tara Hamilton [facility] [place] Start: 08-24-2022 End: 08-24-2022 ambulatory Tara Hamilton Other [facility] Other Start: 08-24-2022 Telephone encounter Tara Hamilton [facility] [place] Start: 08-21-2022 End: 08-21-[address] TARA HAMILTON Facility:[facility] Start: 08-20-2022 End: 08-21-[address] TARA HAMILTON Facility:[facility] Start: 08-19-2022 End: 08-19-2022 ambulatory Tara Hamilton [facility] Other Start: 08-19-2022 Telephone encounter Tara Hamilton [facility] [place] Start: 07-29-2022 End: 07-29-[address] TARA HAMILTON Facility:[facility] Start: 07-20-2022 End: 07-21-[address] TARA HAMILTON Facility:[facility] Start: 07-07-2022 End: 07-07-2022 ambulatory Juan Manuel Ruffin Other [facility] Other Start: 07-07-2022 Telephone encounter Juan Manuel Ruffin [facility] Start: 11-13-2021 End: 11-13-2021 ambulatory Tara Simpsonchris Other [facility] Other Start: 11-13-2021 Office outpatient visit 25 minutes Tara Simpsonchris [facility] Start: 11-13-2021 Telephone encounter Tara Simpsonchris [facility] Start: 09-19-2021 Office outpatient visit 15 minutes Leticiavaughn Negrete [facility] Start: 09-19-2021 Telephone encounter Tara Hamilton [facility] Start: 01-29-2018 End: 01-29-2018 Emergency department patient visit MIRNA RODARTE [facility] Procedures Date Procedure Procedure Detail Performing Clinician Start: 08-24-[address] NAVARRO Comment on above: Performed By: #### O BSCRN #### [facility] [address] [place] [address] Dr. Kelsie Pires Start: 01-29-2018 DRUG SCREEN TRICYCLIC URINE MIRNA ORDARTE Start: 01-29-2018 Microscopic urinalysis MIRNA RODARTE Start: [...] - 10 mg Leticia Dymon d Other [facility] Other 03-22-2021 KENALOG - 10 mg Leticia Dymon d Other [facility] Other 01-18-2020 Vivitrol Leticia Penelope Other [facility] Other 12-18-2019 Amador Negrete Other [facility] Other 11-17-2019 Amador Negrete Other [facility] Other 10-16-2019 Amador Negrete Other [facility] Other 03-10-2018 Amador Negrete Other [facility] Other Payers Date Payer Category Payer Self-pay 1991 Unknown [id number] 2.16.8 [id number] 1991 Unknown [id number] 2.16.84 [id number] 1991 Unknown [id number] 2.16.84 [id number] 1991 Unknown [id number] 2.16.84 [id number] 1991 Unknown [id number] 2.16.84 [id number] 1991 Unknown [id number] 2.16.8 [id number] 1991 Unknown [id number] 2.16.8 [id number] 1991 Unknown [id number] 2.16.8 [id number] 1959 Unknown [id number] Social History Date Type Detail Facility Unknown if ever smoked [facility] Other Sex [facility]igned [facility] Start: 01-15-2025 Tobacco smoking status Never s moked tobacco (finding) [facility] Functional Status Date Assessment Result Facility 01-15-2025 Functional Status N/A [facility] Clinical Notes 09-19-2021 to 01-15-2025 Note Date [...] provider. Document Revised: 08/30/2023 Document Reviewed: 08/30/2023 [employer] Patient Education 2023 [employer]. Follow Up Care 01/08/2025 11:41:40 With:MILAGRO ESCALANTE MD, URL Address: When: Unknown [facility] 01-15-2025 Note Patient Education Urology Testicular Self-Exam [...] Reviewed: 08/30/2023 Elsevier Patient Education ? 2023 [employer]. [facility] 11-03-2022 History general N arrative - Reported Type Medical History 1x seizure Medical History HEPATITIS C Medical History Marijuana Use Medical History Opioid Dependence Medical History IBS-D Surgical History pin in right hand 2012 Surgical History EEG ambulatory - Dr Esqueda 06/17 17 Hospitalization History seizure 2013 Hospitalization History seizure 2018 [facility] Other 12-06-2022 Evaluation note* Encounter Date Diagnosis Assessment Notes Treatment Notes Treatment Clinical Notes Oct, Hepatitis C (ICD-10 - B19.20) Pt reassured of Hep C clearance. Oct, History of Clostridioides difficile infection (ICD-10 - Z86.19) Reassured pt that it may take a while for bowel habits to return back to normal. Recommended probiotic when taking antibiotics Follow up PRN [facility] Other 09-26-2022 Evaluation note* Encounter Date Diagnosis [...] do want him to follow with the home economics teacher when he can get in there. Guidance [...] Jul, Other 5:59 PM - 6:06 PM [facility] Other 09-21-2022 Evaluation note* Encounter Date Diagnosis [...] Jul, Other 3:11 PM - 3:23 PM [facility] Other 12-16-2021 Evaluation note* Encounter Date Diagnosis [...] bowel syndrome with diarrhea (ICD-10 - K58.0) [facility] Other 12-16-2021 Evaluation note* Encounter Date Diagnosis Assessment Notes Treatment Notes Treatment Clinical Notes Oct, Hepatitis C (ICD-10 - B19.20) [facility] Other 10-22-2021 Evaluation note* Encounter Date Diagnosis [...] Patient care instructions given in writting by [facility] Care At Home document. [facility] Other Evaluation + Plan note No data available for this section [facility] noteNo InformationNort [place] Other [facility] general Narrative - Reported* Type Description Date Medical History 1x seizure Medical History HEPATITIS C Medical History Marijuana Use Medical History Opioid Dependence Surgical History pin in right hand 2012 Surgical History EEG ambulatory - Dr Esqueda 06/17 17 Hospitalization History seizure 2013 [facility] Other [facility] Narrative - Reported* Type Description Date Medical History 1x seizure -2013 Medical History HEPATITIS C Medical History Marijuana Use Medical History Opioid Dependence Medical History IBS-D Surgical History pin in right hand 2012 Surgical History EEG ambulatory - Dr Esqueda 06/17 17 Hospitalization History seizure 2013 [facility] Other [facility] general Narrative - Reported* Type Description Date Medical History 1x seizure -2013 Medical History HEPATITIS C Medical History Marijuana Use Medical History Opioid Dependence Medical History IBS-D Surgical History pin in right hand 2012 Surgical History EEG ambulatory - Dr Esqueda 06/17 17 Hospitalization History seizure 2013 Hospitalization History seizure 2018 [facility] Other Hospital Discharge instructions No data available for this section [facility] progress note No data available for this section [facility] Summary Purpose Family History No Family History [...] Cruz Diagnosis 1 Diarrhea (R19.7) Referral Organization [facility] [place] Referring Provider First Name Tara Referring Provider Last Name Alfonso Referring Provider Specialty Family Prac bhavani Referred Organization [facility] Referred Provider Balaji Cruz Referred Address [address] [place] [id number] Referred Provider Specialty Surgery Referral Priority Routine [...] section and content) DATE CREATED AUTHOR 05/20/2018 [facility] DATE CREATED AUTHOR AUTHOR'S ORGANIZ ATION 01/11/2022 [facility] DATE CREATED AUTHOR AUTHOR'S ORGANIZ ATION 08/30/2022 [facility] DATE CREATED AUTHOR AUTHOR'S ORGANIZ ATION 09/04/2022 [facility] DATE CREATED AUTHOR AUTHOR'S ORGANIZ ATION 01/16/2025 [facility] REASON FOR VISIT (unrecogniz ed section and content) #24 RED IMPALA, FEVER, CONGE STION, COUGH, COVID EXPOSURENo InformationPATIENT HERE FOR FOLLOW UP HEPATITIS CHEP C-MAVYRET- APPROVEDClinicaldiarrheareview labsreferral fyiPATIENT HERE FOR FOLLOW UP HEP C TREATMENT. PT WAS TREATED WITH MAVYRET Patient Care team informatio n (unrecognized section and content) Personnel Name: Tara Hamilton DO Address: Address: [address] [place] [address] [employer] [address] Personnel Name: Tara Hamilton DO Address: Address: [address] [place] [address] FOR RECORDS PERTAINING TO PATIENTS WHO ARE [...] BE BASED ON THE PRIMARY CLINICAL RECORDS. [facility]. provides no warranty or guarantee of the accuracy or completeness of information in this document.
[2025-07-20] MEDS: DEXAMETHASONE SOD PHOS 10 MG/ML VIAL IM (09:39)
[2025-07-20] MEDS: DIPHENHYDRAMINE HCL 25 MG CAPSULE 50 MG PO (09:40)
--- NOTE | 2025-07-20 09:45 | ED.GENADUL1 ---
HPI HPI - General Adult General Chief complaint: Skin/Abscess/Foreign Body Stated complaint: RASH - POSSIBLE POISON SATHYA Time Seen by Provider: 07/20/25 09:14 Source: patient Mode of arrival: walk-in Limitations: no limitations History of Present Illness HPI narrative: Patient is a 34 male presenting to the emergency department for concerns of a rash. Patient states he noticed the rash last night on his right arm, and now spread to the left side of his eye/face. He states that he has had multiple episodes of this in the past, which at the time was related to poison sathya. 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 He states that the rash is itchy, but not painful. He has no other systemic symptoms such as fevers, chills, nausea, vomiting, chest pain, shortness of breath. He states that last time steroids helped his symptoms. He is otherwise healthy with no medical conditions. Related Data Previous Rx's ?Medication ?Instructions ?Recorded prednisone 10 mg tablet See Rx Instructions .Route 02/08/25 .COMPLEX #30 tabs hydrocortisone 2.5 % topical kit 1 applic topical DAILY PRN rash #1 07/20/25 ea prednisone 20 mg tablet 20 mg PO DAILY 4 days #4 tabs 07/20/25 Allergies Allergy/AdvReac Type Severity Reaction Status Date / Time Penicillins Allergy Hives Verified 02/08/25 07:55 Review of Systems ROS Status of ROS 10 or more systems reviewed and unremarkable except as noted in history and below PFSH PFSH Social History Little interest or pleasure in doing things: not at all Feeling down, depressed, or hopeless: not at all Exam Narrative Exam Narrative: CONSTITUTIONAL: [well-appearing, answering questions and following commands appropriately] SKIN: There is a confluent erythematous rash with small blisters on the anterior aspect of the right forearm. No surrounding induration, fluctuance, or purulent drainage. No crepitus. EYES: Mild periorbital erythema without involvement of the globe. PERRLA. EOMI. Visual acuity intact. EARS, NOSE, THROAT: Moist oral mucosa. No intraoral lesions. RESPIRATORY: [Clear to auscultation bilaterally, no wheezes, crackles, or stridor, no use of accessory muscles] CARDIOVASCULAR: [Normal rate and regular rhythm. There is no S3, S4, murmur, rub.] GASTROINTESTINAL: Abdomen is nondistended. MUSCULOSKELETAL: No peripheral edema. NEUROLOGIC: [Patient is awake and alert. Facies were symmetrical.] Constitutional Vital Signs, click to edit/add: Last Vital Signs Temp 98.7 F 07/20/25 09:02 Pulse 81 07/20/25 09:02 Resp 20 07/20/25 09:02 BP 128/86 07/20/25 09:02 Pulse Ox 99 07/20/25 09:02 O2 Del Method Room Air 07/20/25 09:02 Course Vital Signs Vital signs: Vital Signs Temperature 98.7 F 07/20/25 09:02 Pulse Rate 81 07/20/25 09:02 Respiratory Rate 20 07/20/25 09:02 Blood Pressure 128/86 07/20/25 09:02 Pulse Oximetry 99 07/20/25 09:02 Oxygen Delivery Method Room Air 07/20/25 09:02 Temperature 98.7 F 07/20/25 09:02 Pulse Rate 81 07/20/25 09:02 Respiratory Rate 20 07/20/25 09:02 Blood Pressure 128/86 07/20/25 09:02 Pulse Oximetry 99 07/20/25 09:02 Oxygen Delivery Method Room Air 07/20/25 09:02 Medical Decision Making MDM Narrative Medical decision making narrative: Patient is a healthy 34-year-old male presenting to the emergency department with a 1 day history of pruritic rash in the right arm and left periorbital area. Vital signs on arrival are within normal limits. He is afebrile and hemodynamically stable. His examination is consistent with poison sathya dermatitis/contact dermatitis. There does not appear to be superimposed cellulitis/infection. Though there is involvement of the left periorbital region, there is no involvement of the globe itself. He has no visual changes, foreign body sensations, or evidence of periorbital cellulitis. There is no intraoral lesions to suggest Pedro Daryn syndrome. Patient will be treated for poison sathya dermatitis with IM dexamethasone and oral Benadryl while here in the ED. He was given a prescription for prednisone 40 mg daily x 4 days. He was also given a prescription for hydrocortisone cream. I do believe the patient is stable for discharge at this time. They were instructed to follow up with their PCP as needed. Return precautions were given including any new or worsening symptoms. Patient understands and agrees to the plan. Discharge Plan Discharge Chief Complaint: Skin/Abscess/Foreign Body Clinical Impression: Poison sathya dermatitis Patient Disposition: Home, Self-Care Time of Disposition Decision: 09:19 Condition: Good Mode of Transportation: Private Vehicle Prescriptions / Home Meds: New prednisone 20 mg tablet 20 mg PO DAILY 4 Days Qty: 4 0RF hydrocortisone 2.5 % kit 1 applic topical DAILY PRN (Reason: rash) Qty: 1 0RF No Action prednisone 10 mg tablet See Rx Instructions .ROUTE .COMPLEX Qty: 30 0RF Rx Instructions: 4 by mouth daily for three days then 3 by mouth daily for three days then 2 by mouth daily for three days then 1 by mouth daily for three days Print Language: Hebrew Instructions: Poison Sathya (ED) Referrals: TARA HAMILTON [Primary Care Provider, Family Practice] - 1 week Discharge Date/Time: 07/20/25 09:41
== END 2025-07-20 09:41 | disposition home or self-care (01) ==
PROVIDERS: Emergency Provider Student in an Organized Health Care Education/Training Program; PCP Family Medicine
DX: L23.7 Allergic contact dermatitis due to plants, except food (principal)
CPT/HCPCS: 96372; 99284; J1100